=== PATIENT | female | born 1960 | race Caucasian/White ===

== ENCOUNTER 2019-05-15 01:08 | Day surgery (SDC) | payer OTHER, SELFPAY ==
[2019-05-05 15:17] VITALS: BMI 39.4
[2019-05-15] VITALS (8 sets, daily range): BP systolic 133–167; BP diastolic 46–74; PULSE 64–83; RESP 10–20; TEMP 36.5–36.7; O2SAT 95–100
[2019-05-15] MEDS: IBUPROFEN IV 800 MG/200 ML 800 MG/200 ML BAG 400 MG IVPB (12:30)
[2019-05-15] MEDS: LACTATED RINGERS 1,000 ML 30 ML IV CONT ×2 (12:30→15:57)
[2019-05-15 12:43] LABS: Glucose Point of Care 113 (65-105)
--- NOTE | 2019-05-15 12:59 | WPDANESEPPF ---
Anes - Initial Pre Proc Eval Procedure: Operation Date: 05/15/19 13:30 Proposed Procedures p Laparoscopic Cholecystectomy, Possible Open - Zack Stahl DO Date/Time: 05/15/19 12:59 Surgeon: Zack Stahl DO Pre Op Diagnosis: Porcelain Gallbladder Patient Data Age: 58 Gender: F Height: 5 ft 3 in Weight: 103.5 kg Last Vital Signs Temp 98.0 F 05/15/19 12:49 Pulse 71 05/15/19 12:49 Resp 18 05/15/19 12:49 BP 133/65 05/15/19 12:49 Pulse Ox 100 05/15/19 12:49 Allergies Allergy/AdvReac Type Severity Reaction Status Date / Time Sulfa (Sulfonamide Allergy Mild HALLUCINATI Verified 05/15/19 12:46 Antibiotics) ONS hydrocodone AdvReac Mild Vomiting Verified 05/15/19 12:46 Home Medications Medication Instructions Recorded Confirmed Type aspirin 325 mg tablet 325 mg PO DAILY 04/26/19 05/15/19 History atorvastatin 10 mg tablet 10 mg PO DAILY 04/26/19 05/05/19 History blood sugar diagnostic #10 each 04/26/19 History cholecalciferol (vitamin D3) 5,000 5,000 unit PO DAILY 04/26/19 05/05/19 History unit disintegrating tablet duloxetine 60 mg capsule,delayed 60 mg PO DAILY 04/26/19 05/15/19 History release gabapentin 300 mg capsule 300 mg PO TID 04/26/19 05/15/19 History glipizide 10 mg tablet 10 mg PO DAILY 04/26/19 05/05/19 History insulin glargine 100 unit/mL (3 30 unit SUB-Q BID 04/26/19 05/15/19 History mL) subcutaneous pen lisinopril 10 mg tablet 10 mg PO DAILY 04/26/19 05/05/19 History metformin 1,000 mg tablet 1,000 mg PO BID 04/26/19 05/05/19 History needle (disp) 30 gauge 30 gauge x #100 each 04/26/19 History 1/2 pantoprazole 40 mg tablet,delayed 40 mg PO QAM 04/26/19 05/05/19 History release paroxetine HCl 10 mg tablet 10 mg PO DAILY 04/26/19 05/15/19 History ferrous sulfate 325 mg PO DAILY 05/05/19 05/05/19 History ibuprofen 800 mg PO DAILY 05/05/19 05/05/19 History Laboratory Tests 05/15/19 12:38 POC Capillary Glucose 113 mg/dl H mg/dl (65-105) Patient hx anesthesia problems: post op nausea/vomiting Family hx anesthesia problems: none PMFSH Past Medical History Medical History (Updated 05/15/19 @ 12:59 by Frankie Chow MD) Adolescent depression Diabetes Encounter for blood transfusion GERD (gastroesophageal reflux disease) High cholesterol Hypertension Morbid obesity Surgical History Surgical History History of cataract surgery History of section History of colonoscopy History of knee surgery orthoscopic History of tubal ligation Social History Social History Smoking status: Never smoker Alcohol intake: never Anes - Eval Final PreProcedure Day of Procedure 05/15/19 12:59 Patient weight: morbidly obese Heart: regular rate and rhythm Lungs: clear to auscultation Airway: Mallampati scale class III Neurological: alert and oriented Last oral intake: >/= 8 hours ASA classification: IV Emergent: no Anesthetic plan: proceed Anesthesia type and monitoring: general ETT and standard monitoring Informed Consent: The patient's anesthetic plan and its attendant risks and benefits were discussed with the patient/family/POA. Questions were solicited and answers provided to the satisfaction of the patient/family/POA.
[2019-05-15] MEDS: SCOPOLAMINE 1.5 MG PATCH TRANSDERM (13:15)
--- NOTE | 2019-05-15 13:17 | WPDHPUPDATE1 ---
History and Physical Update Update Date/Time: 05/15/19 13:17 History and Physical has been reviewed, including an updated exam of the patient. There are NO changes in the patient's condition. Risks, benefits, and alternatives have been discussed and questions answered. Patient agrees to proceed with procedure.
[2019-05-15] MEDS: ceFAZolin 2 GM/D5W 50 ML 2 GM/50 ML BAG IVPB (13:37)
[2019-05-15] MEDS: BUPIVACAINE/EPINEPHRINE 0.5% 30 ML VIAL INFILTRATE (14:11)
--- NOTE | 2019-05-15 14:42 | PM.PROC ---
Procedure Note - Detailed Date of procedure: 05/15/19 Pre-op diagnosis: Porcelain Gallbladder Post-op diagnosis: same Procedure performed: Laparoscopic Cholecystectomy Description of procedure: Procedure as well as risks, benefits, and alternatives were discussed with patient. Written consent was obtained and placed in chart prior to procedure. The patient was brought back to surgical suite. Patient was placed in supine position on operating table. Time-out was done to confirm patient and procedure. Patient was then intubated by the anesthesia department. Abdomen was prepped and draped in sterile fashion using chlorhexidine prep. 0.5% bupivacaine with epinephrine was infiltrated at each site of incision. A 5 millimeter incision was made near the umbilicus, and a 5 millimeter Optiview trocar was advanced through the abdominal layers under direct visualization. Once inside the abdominal cavity, carbon dioxide was insufflated to create a pneumoperitoneum. The camera was inserted and the abdomen was inspected. No immediate abnormalities were identified. The patient was placed in reverse Trendelenburg position and rotated slightly to the left. An 11 millimeter incision was made in the subxiphoid region, and an 11 millimeter trocar was inserted under direct visualization. Two 5 millimeter incisions were made in the right upper quadrant, and two 5 millimeter trocars were inserted under direct visualization. The gallbladder was identified and grasped at the fundus and retracted superiorly. It was then grasped at the infundibulum retracted laterally. Careful dissection around the neck of the gallbladder was performed using blunt dissection with a [place] grasper and hook electrocautery. The cystic duct was identified, and a window was created behind it. The cystic artery was also identified and a window was created behind it. The critical view of safety was identified, visualizing the cystic duct running directly into the neck of the gallbladder, and the cystic artery running directly into the wall of the gallbladder. A 5 millimeter clip van driver was then used to place 2 clips proximally and 1 clip distally on both the cystic duct and cystic artery. They were then both transected using endoscopic scissors. Once safely away from the ralph hepatitis, the gallbladder was dissected free from the liver bed using hook electrocautery. Hemostasis was achieved along the way. The gallbladder was removed completely and then removed through the subxiphoid port. The liver bed was then inspected. Hemostasis appeared adequate, and our clips appeared secure. The area was gently irrigated with sterile saline. No other abnormalities were seen. The patient was flattened out in bed, and 1 final inspection was made around the abdominal cavity. The subxiphoid port was removed, and a Sigifredo Elisabet cone was used to approximate the fascia with an 0-Vicryl simple interrupted suture. The remaining ports were then removed under direct visualization, the camera was removed, and the pneumoperitoneum was released. The skin of the incisions was approximated using 4-0 Monocryl subcuticular sutures. Exofin glue was applied on top. The patient was then awakened from anesthesia, extubated, and transferred to recovery. Anesthesia: GETA and local (0.5% bupivicaine with epi) Surgeon: Zack Stahl DO Estimated blood loss (mL): 5 Drains: No Packing: No Pathology: yes Complications: No immediate complications Condition: stable (Patient tolerated procedure well, and is currently resting comfortably in recovery.) Disposition: same day Findings: This is a 58-year-old woman who presented with right upper quadrant pain for the past couple months. She had been experiencing pain after eating fried or greasy food, but also was having some pain with bending over. A CT of her abdomen and pelvis was obtained and this showed evidence of a porcelain gallbladder. Discussions were made with the
[2019-05-15] MEDS: ONDANSETRON INJ 4 MG/2 ML VIAL IV PUSH (15:21)
[2019-05-15 15:58] LABS: Glucose Point of Care 85 (65-105)
== END 2019-05-15 16:55 | disposition home or self-care (01) ==
PROVIDERS: PCP Physician Assistant; Visit Provider Surgery
PROC: 0FT44ZZ Resection of Gallbladder, Percutaneous Endoscopic Approach (ICD-10-PCS; CPT 47562; principal; 2019-05-15 13:30)
DX: K80.10 Calculus of gallbladder with chronic cholecystitis without obstruction (principal); E11.9 Type 2 diabetes mellitus without complications; K21.9 Gastro-esophageal reflux disease without esophagitis; E78.00 Pure hypercholesterolemia, unspecified; I10 Essential (primary) hypertension; E66.01 Morbid (severe) obesity due to excess calories; Z68.41 Body mass index [BMI] 40.0-44.9, adult; Z79.4 Long term (current) use of insulin; Z79.84 Long term (current) use of oral hypoglycemic drugs; Z79.82 Long term (current) use of aspirin
CPT/HCPCS: 47562; 88304; A9270; J0330; J0690; J1100; J1741; J2250; J2405; J2704; J2710; J3010; J7030; J7120

== ENCOUNTER 2019-09-20 10:56 | Outpatient (RCR) | payer OTHER, SELFPAY ==
--- NOTE | 2019-09-20 13:16 | PTOPEVAL ---
Thank you for referring Sher Billings to [facility] [place]. Please review, sign, date and return this plan of care IVETTE. I agree with and certify that the following plan of care is medically necessary. Referring Physician Date Admitting Provider: Attending Provider: PHYSICIAN NOT ON STAFF Referring Provider: *PT Outpatient Evaluation Start: 09/20/19 11:11 Freq: Status: Active Protocol: Document 09/20/19 11:13 [facility] (Rec: 09/20/19 11:57 [facility] [id number]) Therapy Assessment Status Assessment Status Assessment Status Evaluation Outpatient Past Medical History Neurological History Hx Neurological Disorders No Significant History Cardiovascular History Hx Hypercholesterolemia Yes Hx Hypertension Yes Respiratory History Hx Respiratory Disorders No Significant History Gastrointestinal History Hx Gall Bladder Disease Yes Hx Other Gastrointestinal Disorders Yes: HIATAL HERNIA Genitourinary History Hx Genitourinary Disorders No Significant History Musculoskeletal History Hx Arthritis Yes Hx Orthopedic Surgery Yes: L KNEE ARTHROSCOPY Hematological History Hx Anemia Yes Hx Blood Transfusions Yes Endocrine History Hx Diabetes Yes HEENT History Hx Cataracts Yes: SURGERY TO REMOVE Hx Tonsillectomy Yes Integumentary History Hx Skin Disorders No Significant History Reproductive History Hx Section Yes Hx Post Menopausal Yes Hx Tubal Ligation Yes Psychosocial History Hx Anxiety Yes Hx Depression Yes Pain History Has Past Pain Affected Your Daily Life Yes: ARTHRITIS Anesthesia History Hx Other Anesthesia Reactions Yes: HEART RATE DROPS Evaluation Information Problem Diagnosis low back pain, bilateral hip pain Onset 09/14/19 Additional Evaluation Detail oswestry = 38% Subjective Information patient reports she has been Query Text:As Reported By Patient/ having pain in the L hip and Family low back for about 3 months. she reports no injury. she report sno change in activity. she reports the pain feels increased with touching a spot on the outside of her leg and with walking. she reports she does takie ibuprofen for her pain which helps. she reports she did have x-rays taken. she reports no injection. sh
--- NOTE | 2019-09-25 10:15 | PCPTNOTE ---
09/25/19-pt cancelled appointment as she is worried about her insurance coverage.
== END 2019-11-07 23:59 | disposition home or self-care (01) ==
LOC: CHSPT 10:56
DX: M54.5 Low back pain (principal); G89.29 Other chronic pain; M70.61 Trochanteric bursitis, right hip; M70.62 Trochanteric bursitis, left hip; M16.11 Unilateral primary osteoarthritis, right hip; M16.12 Unilateral primary osteoarthritis, left hip
CPT/HCPCS: 97014; 97110; 97140; 97161; G0283

== ENCOUNTER 2020-06-22 19:06 | Emergency (ER) | payer OTHER, SELFPAY ==
--- NOTE | ~2020-06-22 | XR_ITS ---
XR chest 1V portable 06/22/2020 19:29 Indication: Status post fall. Dizziness. Procedure: AP portable chest Comparison: No prior studies for comparison. Findings: Heart size normal. Large hiatal hernia. Right basilar atelectasis. No focal pneumonia, colby a, pleural effusion or pneumothorax. No acute osseous abnormality. Impression: 1: No acute cardiopulmonary disease. 2: Large hiatal hernia. Reviewed, dictated and finalized at location A. RAM ARRANGER Impression: 1: No acute cardiopulmonary disease. 2: Large hiatal hernia.
--- NOTE | ~2020-06-22 | CT_ITS ---
EXAMINATION: CT BRAIN W/O DATE: 06/22/2020 19:35 INDICATION: Dizziness TECHNIQUE: Computed tomography (CT) of the head was performed without intravenous contrast. The dose- length product was 605.33 mGy-cm. Automated exposure control and iterative reconstruction technique w ere employed. COMPARISON: No prior studies for comparison. FINDINGS: Normal brain parenchymal volume for age. Normal melendez-white differentiation. No acute intrac ranial hemorrhage, infarction, mass or mass effect. No ventriculomegaly or midline shift. Midline sagittal images demonstrate a normal corpus callosum, c raniovertebral junction and sella turcica. Basilar cisterns are patent. There is mucosal thickening of the left ethmoid sinuses. No depressed skull fractures. IMPRESSION: 1. No acute intracranial abnormality. Reviewed, dictated and finalized at location A. E MOUNTER
[2020-06-22 19:05] VITALS: BP 149/75; PULSE 102; RESP 21; TEMP 37.3; O2SAT 98
--- NOTE | 2020-06-22 19:13 | PC.NURSE ---
daughter of the pt is called Socorro [phone]
--- NOTE | 2020-06-22 19:16 | ECG_ITS ---
Measurements Intervals Hunter Rate: 101 P: 41 WV: 132 QRS: -28 QRSD: 91 T: 71 QT: 356 QTc: 463 Interpretive Statements MULTIFOCAL ATRIAL TACHYCARDIA ATRIAL PREMATURE COMPLEXES DELAYED PRECORDIAL R/S TRANSITION NONSPECIFIC ST & T-WAVE ABNORMALITY- HIGH LATERAL LEADS ABNORMAL ECG Electronically Signed On 06-23-2020 8:19:06 CDT by Rayshawn Contreras D.O.
[2020-06-22 19:28] VITALS: BP 149/75; PULSE 120; RESP 20; O2SAT 97
[2020-06-22] MEDS: SODIUM CHLORIDE 0.9% IV 1,000 ML 999 ML IV CONT (19:52)
[2020-06-22] MEDS: ONDANSETRON INJ 4 MG/2 ML VIAL IV PUSH (19:52)
[2020-06-22 19:59] LABS: Basophils Absolute Auto 0.1 K/mm3 (0.0-0.1); Basophils Percent Auto 0.7 % (0.2-1.2); Eosinophils Absolute Auto 0.2 K/mm3 (0-0.3); Eosinophils Percent Auto 2.6 % (0-4.4); Hematocrit 42.3 % (37.0-47.0); Hemoglobin 13.4 g/dL (12.0-15.0); Immature Granulocyte Absolute 0.02 K/mm3 (0.00-0.031); Immature Granulocyte Percent A 0.2 % (0-0.5); Lymphocytes Absolute Auto 1.82 K/mm3 (0.9-3.2); Lymphocytes Percent Auto 21.5 % (18.3-44.2); Mean Corpuscular HGB Conc 31.7 g/dl (32-36); Mean Corpuscular Hemoglobin 27.8 pg (26-34); Mean Corpuscular Volume 87.8 fl (80-100); Monocytes Absolute Auto 0.9 K/mm3 (0.1-0.6); Monocytes Percent Auto 10.4 % (2.6-8.5); Neutrophils Absolute Auto 5.5 K/mm3 (1.3-6.7); Neutrophils Percent Auto 64.6 % (45.5-73.1); Platelet Count Result 344 k/mm3 (150-375); Red Blood Count 4.82 M/mm3 (4.2-5.4); Red Cell Distribution Width 13.3 % (11.5-14.5); White Blood Count 8.5 K/mm3 (4.5-10.0)
[2020-06-22 20:01] LABS: Glucose Point of Care 96 (65-105)
[2020-06-22 20:09] LABS: INR 0.9; Prothrombin Time 12.4 Seconds (11.1-14.7)
[2020-06-22 20:10] LABS: Add Urine Microscopic? YES; Amorphous Sediment Urine Few; Appearance Urine Clear (Clear); Bacteria Urine Trace /hpf; Bilirubin Urine Negative (Negative); Blood Urine Negative (Negative); Color Urine Yellow (Yellow); Glucose Urine UA Negative (Negative); Ketones Urine Negative (Negative); Leukocyte Esterase Ur Negative LEU/UL (Negative); Mucus Urine Rare /lpf; Nitrate Urine Negative (Negative); Partial Thromboplastin Time 30.9 SECONDS (22.3-36.8); Protein Urine Negative (Negative); RBC Urine 0-2 /hpf (0-2); Squamous Epithelial Cell Urine Few /hpf (Few); Urobilinogen Urine Negative mg/dL (<2.0); WBC Urine 0-3 /hpf
[2020-06-22 20:22] LABS: Alanine Aminotransferase 23 U/L (4-35); Albumin Level 4.1 g/dL (3.5-5.1); Alkaline Phosphatase 118 U/L (38-126); Anion Gap 6 mmol/L (8-16); Aspartate Amino Transferase 29 U/L (14-36); Bilirubin,Total 0.5 mg/dL (0.2-1.3); Blood Urea Nitrogen 11 mg/dL (7-17); Calcium 9.1 mg/dL (8.4-10.2); Carbon Dioxide 32 mmol/L (22-30); Chloride 103 mmol/L (98-107); Estimated CRCL calculation 87 ml/min; Estimated Glomerular Filt Rate > 60; Glucose 109 mg/dL (65-105); Potassium 4.7 mmol/L (3.4-5.0); Sodium 141 mmol/L (137-145)
[2020-06-22 20:23] LABS: Lactic Acid Reflex 3.5 mmol/L (0.7-2.1)
[2020-06-22 20:33] LABS: Troponin I < 0.012 ng/mL (0.000-0.034)
--- NOTE | 2020-06-22 21:17 | ED.NEUROSD ---
HPI - Neuro Symptoms/Deficit General Chief Complaint: Suspected CVA Stated Complaint: fall yesterday/ aphasia and weakness Time Seen by Provider: 06/22/20 19:08 History of Present Illness HPI Narrative: Patient is a 59-year-old female who presents the emergency department with chief complaint of dizziness and nausea. The patient reports that she was at [facility] yesterday and slipped and fell and struck her head. The patient states she had no loss of consciousness was doing okay afterwards and this morning approximately 2 AM she noticed that she started feeling lightheaded started feeling dizzy and was nauseated. The patient states that she also had some difficulty writing and moving her hand when her symptoms were at its worst. Upon arrival to the emergency department the patient states that she is feeling much better now particular if she is sitting down's did report initially that the symptoms are worsened whenever she stood up. Related Data Home Medications Medication Instructions Recorded Confirmed aspirin 325 mg tablet 325 mg PO DAILY 04/26/19 06/01/19 atorvastatin 10 mg tablet 10 mg PO DAILY 04/26/19 06/01/19 blood sugar diagnostic #10 each 04/26/19 06/01/19 cholecalciferol (vitamin D3) 125 5,000 unit PO DAILY 04/26/19 06/01/19 mcg (5,000 unit) disintegrating tablet duloxetine 60 mg capsule,delayed 60 mg PO DAILY 04/26/19 06/01/19 release gabapentin 300 mg capsule 300 mg PO TID 04/26/19 06/01/19 glipizide 10 mg tablet 10 mg PO DAILY 04/26/19 06/01/19 insulin glargine 100 unit/mL (3 30 unit SUB-Q BID 04/26/19 06/01/19 mL) subcutaneous pen lisinopril 10 mg tablet 10 mg PO DAILY 04/26/19 06/01/19 metformin 1,000 mg tablet 1,000 mg PO BID 04/26/19 06/01/19 needle (disp) 30 gauge 30 gauge x #100 each 04/26/19 06/01/19 1/2 pantoprazole 40 mg tablet,delayed 40 mg PO QAM 04/26/19 06/01/19 release paroxetine HCl 10 mg tablet 10 mg PO DAILY 04/26/19 06/01/19 ferrous sulfate 325 mg PO DAILY 05/05/19 06/01/19 ibuprofen 800 mg PO DAILY 05/05/19 06/01/19 Allergies Allergy/AdvReac Type Severity Reaction Status Date / Time Sulfa (Sulfonamide Allergy Mild HALLUCINATI Verified 06/22/20 19:10 Antibiotics) ONS hydrocodone AdvReac Mild Vomiting Verified 06/22/20 19:11 Review of Systems Review of Systems: Narrative: A 10 system review of systems was completed on the patient and is negative except for what is stated in the HPI. Nursing and ancillary documentation was reviewed. [facility] Past Medical History Medical History (Updated 06/22/20 @ 22:31 by Que Mederos MD) Adolescent depression Diabetes Encounter for blood transfusion GERD (gastroesophageal reflux disease) High cholesterol Hypertension Morbid obesity Surgical History Surgical History History of cataract surgery History of section History of colonoscopy History of knee surgery orthoscopic History of tubal ligation Hx laparoscopic cholecystectomy Family History Family History Father Hodgkin lymphoma Mother Diabetes mellitus Hypertension Unknown Diabetes mellitus Hypertension Family history of thyroid problem Social History Social History Smoking status: Never smoker Alcohol intake: never Exam Narrative: Exam Narrative: GENERAL: Well-appearing, well-nourished, and in no acute distress. HEAD: Normocephalic, atraumatic. EYES: PERRLA and EOMI. ENT: Nares clear, no rhinorrhea or epistaxis. Mucous membranes moist. NECK: Supple. CHEST: Clear to auscultation. No respiratory distress. HEART: Regular rate and rhythm. No murmur heard. Normal peripheral pulses. ABDOMEN: Soft, nontender, nondistended, normal active bowel sounds. EXTREMITIES: Normal range of motion. No edema. SKIN: Warm, dry, no rash. NEURO: No focal deficits
[2020-06-22 22:57] LABS: Reflex Lactic Acid Yes or No Add Lactic
[2020-06-22 23:10] VITALS: BP 135/106; PULSE 85; RESP 16; TEMP 36.8; O2SAT 100
== END 2020-06-22 23:13 | disposition home or self-care (01) ==
PROVIDERS: Emergency Provider Emergency Medicine
DX: S06.0X0A Concussion without loss of consciousness, initial encounter (principal); E11.9 Type 2 diabetes mellitus without complications; K21.9 Gastro-esophageal reflux disease without esophagitis; E78.00 Pure hypercholesterolemia, unspecified; I10 Essential (primary) hypertension; E66.01 Morbid (severe) obesity due to excess calories; Z68.41 Body mass index [BMI] 40.0-44.9, adult; Z79.4 Long term (current) use of insulin; Z79.82 Long term (current) use of aspirin; Z98.49 Cataract extraction status, unspecified eye; I47.1 Supraventricular tachycardia; I49.1 Atrial premature depolarization; R94.31 Abnormal electrocardiogram [ECG] [EKG]; W01.0XXA Fall on same level from slipping, tripping and stumbling without subsequent striking against object, initial encounter
CPT/HCPCS: 36415; 70450; 71045; 80053; 81001; 82948; 83605; 84484; 85025; 85610; 85730; 93005; 96361; 96374; 99284; J2405; J7030

== ENCOUNTER 2020-09-02 15:18 | Outpatient (CLI) | payer OTHER, SELFPAY ==
--- NOTE | ~2020-09-02 | XR_ITS ---
XR lumbar spine 2-3V 09/02/2020 16:32 Indication: Low back pain Procedure: 3 views lumbar spine Comparison: No prior studies for comparison. Findings: Vertebral body heights are maintained. No fracture or traumatic malalignment. There is disc narrowing and endplate hypertrophy at L4-5 and L5-S1. No evidence for spondylolisthesis. Pedicles in tact. There are cholecystectomy clips. There is atherosclerosis of the abdominal aorta. There are immanuel gical clips in the pelvis, likely from tubal ligation. Impression: 1: Moderate lumbar spondylosis. Reviewed, dictated and finalized at location A. Impression: 1: Moderate lumbar spondylosis.
--- NOTE | ~2020-09-02 | XR_ITS ---
XR sacroiliac joints min 3V 09/02/2020 16:32 Indication: Sacroiliitis Procedure: 3 view sacroiliac joints Comparison: No prior studies for comparison. Findings: Sacroiliac joints are symmetric without significant degenerative change, erosion or ankylos is. There is moderate degenerative change at the lumbosacral junction. Impression: 1: No significant abnormality of the sacroiliac joints. Reviewed, dictated and finalized at location A. Impression: 1: No significant abnormality of the sacroiliac joints.
== END 2020-09-02 15:19 | disposition home or self-care (01) ==
PROVIDERS: PCP Physician Assistant; Visit Provider Nurse Practitioner Adult Health
DX: M54.16 Radiculopathy, lumbar region (principal)
CPT/HCPCS: 72100; 72202

== ENCOUNTER 2021-04-09 15:41 | Outpatient (CLI) | payer OTHER, SELFPAY ==
--- NOTE | ~2021-04-09 | US_ITS ---
EXAMINATION: US venous doppler [facility] DATE: 04/09/2021 16:42 INDICATION: Left lower limb pain and swelling TECHNIQUE: Grayscale ultrasound images without and with compression and Doppler ultrasound images of the left lower extremity veins were obtained. COMPARISON: None. FINDINGS: The visualized portions of left common femoral vein, profunda (deep) femoral vein, femoral vein, popl iteal vein, peroneal veins, posterior tibial veins, gastrocnemius vein and greater saphenous vein out flow are patent. IMPRESSION: 1. No deep venous thrombosis in the left lower limb. Reviewed, dictated and finalized at location A. RETTE EXAMINER
== END 2021-04-09 15:42 | disposition home or self-care (01) ==
PROVIDERS: PCP Physician Assistant; Visit Provider Physician Assistant
DX: M79.605 Pain in left leg (principal)
CPT/HCPCS: 93971

== ENCOUNTER 2021-09-17 19:58 | Outpatient (CLI) | payer OTHER, SELFPAY ==
--- NOTE | 2021-09-24 17:43 | WPDSLEEPSTUD ---
Sleep Study Date of Study: 09/17/21 Ordering Provider: Rayshawn Contreras DO Interpreting Physician: Beulah Ling MD Sleep Study Type: Split Polysomnogram Height: 1.6 m Weight: 95.254 kg Body Mass Index: 37.2 Neck Circumference (inches): 17 Willow: 8 Reason for Sleep Study Difficulty falling asleep and staying asleep Sleep History Sher Billings is a 61 year old female with difficulties falling asleep at night and problems waking up throughout the night. There is a family history of sleep problems with 2 sisters having sleep diagnoses. She rarely awakens from sleep feeling short of breath. She occasionally awakens at night with heartburn, belching or coughing. She occasionally snores, rarely loud enough that others complain about it. She occasionally has trouble sleeping with a cold. She does not wake up gasping for breath at night or have breathing problems at night observed by others. She occasionally sweats excessively at night. She rarely notices her heart pounding or beating irregularly at night. She occasionally falls asleep during the day, rarely falls asleep involuntarily never falls asleep while driving. She rarely has loss of muscle tone with strong emotion. She rarely has daytime difficulties due to excessive sleepiness and rarely has the feeling of paralysis on waking or falling asleep. She rarely has vivid dreamlike scenes upon awakening or falling asleep. She does not feel afraid to go to sleep. She does not have nightmares or remember her dreams. She occasionally has racing thoughts. She frequently feels sad, depressed and anxious. She occasionally has muscular tension. She does not notice parts of her body jerking. She rarely kicks at night. She occasionally has crawling and aching feelings in her legs. She occasionally has leg pain at night. She occasionally has morning jaw pain. She occasionally grinds her teeth during sleep, occasionally is bothered by pain during the day and awakened by pain at night. She occasionally wakes up feeling stiff in the morning, occasionally wakes with sore achy muscles and occasionally wakes with pain in the neck and spine. She has memory problems, concentration difficulties, bowel disturbances and she takes sedatives. Normal bedtime is 10:30 p.m., taking about an hour to fall asleep, typically waking 1-2 times during the night to go to the bathroom. She wakes the morning at 10:00 a.m.. She estimates getting between 6-8 hours of sleep during 10-1/2 hours in bed. Her weekend schedule is similar, goes to bed at 10:30 a.m. p.m. and wakes at 10:00 a.m.. She takes naps in the afternoon. A short nap lasting 10 or 15 minutes may be refreshing. She feels better in the afternoon compared to other times of day. She reports a 10 lb weight gain in the last year. Habits: Never smoked tobacco. Caffeine, 2 glasses of tea a day. No alcohol or recreational drugs. [facility] Past Medical History Medical History Adolescent depression Diabetes Encounter for blood transfusion GERD (gastroesophageal reflux disease) High cholesterol Hypertension Morbid obesity Surgical History Surgical History History of cataract surgery History of section History of colonoscopy History of knee surgery orthoscopic History of tubal ligation Hx laparoscopic cholecystectomy Family History Family History Father Hodgkin lymphoma Mother Diabetes mellitus Hypertension Unknown Diabetes mellitus Hypertension Family history of thyroid problem Social History Social History Smoking status: Never smoker Alcohol intake: never Medications Home Medications Medication Instructions Recorded Confirmed Type aspirin 325 mg tablet 325 mg PO DAILY 04/26/19 02/10/21 Histor
[2021-09-25 17:42] VITALS: BMI 37.2
== END 2021-09-18 06:13 | disposition home or self-care (01) ==
LOC: CHSCSM 19:59
PROVIDERS: PCP Physician Assistant; Visit Provider Internal Medicine Cardiovascular Disease
DX: G47.33 Obstructive sleep apnea (adult) (pediatric) (principal)
CPT/HCPCS: 95811

== ENCOUNTER 2021-12-24 07:36 | Outpatient (CLI) | payer OTHER, SELFPAY ==
[2021-12-24 07:57] LABS: Basophils Absolute Auto 0.06 K/mm3 (0.00-0.10); Basophils Percent Auto 0.7 % (0.0-1.0); Eosinophils Absolute Auto 0.25 K/mm3 (0.02-0.50); Eosinophils Percent Auto 2.8 % (1.0-6.0); Hematocrit 39.5 % (35.0-49.0); Hemoglobin 12.3 g/dL (12.0-15.0); Immature Granulocyte Absolute 0.04 K/mm3 (0.00-0.00); Immature Granulocyte Percent A 0.4 % (0.0-0.0); Lymphocytes Absolute Auto 2.36 K/mm3 (1.10-4.50); Lymphocytes Percent Auto 26.5 % (18.0-42.0); Mean Corpuscular HGB Conc 31.1 g/dL (32.0-36.0); Mean Corpuscular Volume 86.6 fL (78.0-102.0); Mean Platelet Volume 9.6 fl (9.2-11.8); Monocytes Absolute Auto 0.88 K/mm3 (0.10-0.90); Monocytes Percent Auto 9.9 % (2.0-11.0); Neutrophils Absolute Auto 5.3 K/mm3 (1.7-7.2); Neutrophils Percent Auto 59.7 % (50.0-70.0); Platelet Count Result 333 K/mm3 (150-420); Red Blood Count 4.56 M/mm3 (4.20-5.40); Red Cell Distribution Width 13.1 % (11.6-14.4); White Blood Count 8.9 K/mm3 (4.8-10.8)
[2021-12-24 08:06] LABS: Hemoglobin A1C 8.2 % (<5.7)
[2021-12-24 08:52] LABS: Alanine Aminotransferase 36 U/L (14-59); Albumin Level 3.6 g/dL (3.4-5.0); Alkaline Phosphatase 144 U/L (46-116); Anion Gap 6 mmol/L (8-16); Aspartate Amino Transferase 23 U/L (15-37); Bilirubin,Total 0.5 mg/dL (0.00-1.00); Blood Urea Nitrogen 9 mg/dL (7-18); Calcium 9.3 mg/dL (8.5-10.1); Carbon Dioxide 31 mmol/L (21-32); Chloride 103 mmol/L (98-108); Cholesterol 140 mg/dL (0-200); Estimated Glomerular Filt Rate > 60; Glucose 163 mg/dL (70-99); HDL Direct 40 mg/dL (40-60); LDL Cholesterol Calculated 71 mg/dL (<130); Osmolality Calculated 292 mOsm/kg (285-295); Potassium 5.1 mmol/L (3.5-5.1); Sodium 140 mmol/L (136-145); Thyroid Stimulating Hormone 4.86 uIU/mL (0.36-3.74); Total Protein 6.5 g/dL (6.4-8.2); Triglycerides 145 mg/dL (0-150)
== END 2021-12-24 07:37 | disposition home or self-care (01) ==
PROVIDERS: PCP Physician Assistant; Visit Provider Physician Assistant
DX: E78.5 Hyperlipidemia, unspecified (principal); I10 Essential (primary) hypertension; F33.9 Major depressive disorder, recurrent, unspecified; E11.69 Type 2 diabetes mellitus with other specified complication
CPT/HCPCS: 36415; 80053; 80061; 83036; 84443; 85025

== ENCOUNTER 2022-03-26 08:55 | Outpatient (CLI) | payer OTHER, SELFPAY ==
[2022-03-26 09:09] LABS: Basophils Absolute Auto 0.05 K/mm3 (0.00-0.10); Basophils Percent Auto 0.5 % (0.0-1.0); Eosinophils Absolute Auto 0.24 K/mm3 (0.02-0.50); Eosinophils Percent Auto 2.4 % (1.0-6.0); Hematocrit 37.9 % (35.0-49.0); Hemoglobin 12.6 g/dL (12.0-15.0); Immature Granulocyte Absolute 0.03 K/mm3 (0.00-0.00); Immature Granulocyte Percent A 0.3 % (0.0-0.0); Lymphocytes Percent Auto 24.3 % (18.0-42.0); Mean Corpuscular HGB Conc 33.2 g/dL (32.0-36.0); Mean Corpuscular Hemoglobin 28.4 pg (27.0-31.0); Mean Corpuscular Volume 85.6 fL (78.0-102.0); Mean Platelet Volume 9.6 fl (9.2-11.8); Monocytes Absolute Auto 0.84 K/mm3 (0.10-0.90); Monocytes Percent Auto 8.5 % (2.0-11.0); Neutrophils Absolute Auto 6.3 K/mm3 (1.7-7.2); Platelet Count Result 316 K/mm3 (150-420); Red Blood Count 4.43 M/mm3 (4.20-5.40); Red Cell Distribution Width 12.9 % (11.6-14.4); White Blood Count 9.9 K/mm3 (4.8-10.8)
[2022-03-26 09:18] LABS: Hemoglobin A1C 7.5 % (<5.7)
[2022-03-26 10:15] LABS: Alanine Aminotransferase 35 U/L (14-59); Albumin Level 3.7 g/dL (3.4-5.0); Alkaline Phosphatase 136 U/L (46-116); Anion Gap 6 mmol/L (8-16); Aspartate Amino Transferase 23 U/L (15-37); Bilirubin,Total 0.4 mg/dL (0.00-1.00); Blood Urea Nitrogen 19 mg/dL (7-18); Calcium 9.3 mg/dL (8.5-10.1); Carbon Dioxide 32 mmol/L (21-32); Chloride 101 mmol/L (98-108); Cholesterol 163 mg/dL (0-200); Estimated Glomerular Filt Rate 60; Glucose 125 mg/dL (70-99); HDL Direct 44 mg/dL (40-60); LDL Cholesterol Calculated 87 mg/dL (<130); Osmolality Calculated 291 mOsm/kg (285-295); Potassium 4.7 mmol/L (3.5-5.1); Sodium 139 mmol/L (136-145); Thyroid Stimulating Hormone 2.12 uIU/mL (0.36-3.74); Total Protein 6.8 g/dL (6.4-8.2); Triglycerides 161 mg/dL (0-150)
== END 2022-03-26 08:56 | disposition home or self-care (01) ==
PROVIDERS: PCP Physician Assistant; Visit Provider Physician Assistant
DX: E11.69 Type 2 diabetes mellitus with other specified complication (principal); I10 Essential (primary) hypertension
CPT/HCPCS: 36415; 80053; 80061; 83036; 84443; 85025

== ENCOUNTER 2022-08-08 08:24 | Outpatient (CLI) | payer OTHER, SELFPAY ==
[2022-08-08 08:43] LABS: Basophils Absolute Auto 0.05 K/mm3 (0.00-0.10); Basophils Percent Auto 0.6 % (0.0-1.0); Eosinophils Absolute Auto 0.25 K/mm3 (0.02-0.50); Eosinophils Percent Auto 3.1 % (1.0-6.0); Hematocrit 38.9 % (35.0-49.0); Hemoglobin 12.7 g/dL (12.0-15.0); Immature Granulocyte Absolute 0.01 K/mm3 (0.00-0.00); Immature Granulocyte Percent A 0.1 % (0.0-0.0); Lymphocytes Absolute Auto 1.84 K/mm3 (1.10-4.50); Mean Corpuscular HGB Conc 32.6 g/dL (32.0-36.0); Mean Corpuscular Hemoglobin 28.2 pg (27.0-31.0); Mean Corpuscular Volume 86.3 fL (78.0-102.0); Mean Platelet Volume 9.6 fl (9.2-11.8); Monocytes Absolute Auto 0.79 K/mm3 (0.10-0.90); Monocytes Percent Auto 9.9 % (2.0-11.0); Neutrophils Absolute Auto 5.1 K/mm3 (1.7-7.2); Neutrophils Percent Auto 63.3 % (50.0-70.0); Platelet Count Result 321 K/mm3 (150-420); Red Blood Count 4.51 M/mm3 (4.20-5.40); Red Cell Distribution Width 13.2 % (11.6-14.4)
[2022-08-08 09:28] LABS: Alanine Aminotransferase 33 U/L (14-59); Albumin Level 3.7 g/dL (3.4-5.0); Alkaline Phosphatase 138 U/L (46-116); Anion Gap 9 mmol/L (8-16); Aspartate Amino Transferase 24 U/L (15-37); Bilirubin,Total 0.4 mg/dL (0.00-1.00); Blood Urea Nitrogen 11 mg/dL (7-18); Calcium 9.1 mg/dL (8.5-10.1); Carbon Dioxide 31 mmol/L (21-32); Chloride 102 mmol/L (98-108); Cholesterol 153 mg/dL (0-200); Estimated Glomerular Filt Rate > 60; Glucose 155 mg/dL (70-99); HDL Direct 47 mg/dL (40-60); Hemoglobin A1C 8.1 % (<5.7); LDL Cholesterol Calculated 84 mg/dL (<130); Osmolality Calculated 296 mOsm/kg (285-295); Potassium 4.3 mmol/L (3.5-5.1); Sodium 142 mmol/L (136-145); Thyroid Stimulating Hormone 2.87 uIU/mL (0.36-3.74); Total Protein 6.7 g/dL (6.4-8.2); Triglycerides 108 mg/dL (0-150)
== END 2022-08-08 08:25 | disposition home or self-care (01) ==
LOC: CHSLAB 08:25
PROVIDERS: PCP Physician Assistant; Visit Provider Physician Assistant
DX: E11.69 Type 2 diabetes mellitus with other specified complication (principal); I10 Essential (primary) hypertension
CPT/HCPCS: 36415; 80053; 80061; 83036; 84443; 85025

== ENCOUNTER 2022-11-20 09:01 | Outpatient (CLI) | payer OTHER, SELFPAY ==
[2022-11-20 09:20] LABS: Basophils Absolute Auto 0.05 K/mm3 (0.00-0.10); Basophils Percent Auto 0.6 % (0.0-1.0); Eosinophils Percent Auto 2.3 % (1.0-6.0); Hematocrit 39.2 % (35.0-49.0); Hemoglobin 12.6 g/dL (12.0-15.0); Immature Granulocyte Absolute 0.04 K/mm3 (0.00-0.00); Immature Granulocyte Percent A 0.5 % (0.0-0.0); Lymphocytes Absolute Auto 1.75 K/mm3 (1.10-4.50); Lymphocytes Percent Auto 20.3 % (18.0-42.0); Mean Corpuscular HGB Conc 32.1 g/dL (32.0-36.0); Mean Corpuscular Hemoglobin 27.8 pg (27.0-31.0); Mean Corpuscular Volume 86.5 fL (78.0-102.0); Mean Platelet Volume 9.6 fl (9.2-11.8); Monocytes Absolute Auto 0.78 K/mm3 (0.10-0.90); Neutrophils Absolute Auto 5.8 K/mm3 (1.7-7.2); Neutrophils Percent Auto 67.3 % (50.0-70.0); Platelet Count Result 315 K/mm3 (150-420); Red Blood Count 4.53 M/mm3 (4.20-5.40); Red Cell Distribution Width 13.2 % (11.6-14.4); White Blood Count 8.6 K/mm3 (4.8-10.8)
[2022-11-20 09:51] LABS: Hemoglobin A1C 6.9 % (<5.7)
[2022-11-20 10:04] LABS: Alanine Aminotransferase 24 U/L (14-59); Albumin Level 3.7 g/dL (3.4-5.0); Alkaline Phosphatase 139 U/L (46-116); Anion Gap 9 mmol/L (8-16); Aspartate Amino Transferase 22 U/L (15-37); Bilirubin,Total 0.4 mg/dL (0.00-1.00); Blood Urea Nitrogen 11 mg/dL (7-18); Calcium 9.2 mg/dL (8.5-10.1); Carbon Dioxide 30 mmol/L (21-32); Chloride 102 mmol/L (98-108); Cholesterol 116 mg/dL (0-200); Estimated Glomerular Filt Rate > 60; Glucose 139 mg/dL (70-99); HDL Direct 41 mg/dL (40-60); LDL Cholesterol Calculated 57 mg/dL (<130); Osmolality Calculated 293 mOsm/kg (285-295); Potassium 4.6 mmol/L (3.5-5.1); Sodium 141 mmol/L (136-145); Thyroid Stimulating Hormone 2.35 uIU/mL (0.36-3.74); Total Protein 6.5 g/dL (6.4-8.2); Triglycerides 91 mg/dL (0-150)
== END 2022-11-20 09:02 | disposition home or self-care (01) ==
LOC: CHSLAB 09:06
PROVIDERS: PCP Physician Assistant; Visit Provider Physician Assistant
DX: F33.9 Major depressive disorder, recurrent, unspecified (principal); E11.69 Type 2 diabetes mellitus with other specified complication; E78.5 Hyperlipidemia, unspecified; I10 Essential (primary) hypertension
CPT/HCPCS: 36415; 80053; 80061; 83036; 84443; 85025

== ENCOUNTER 2023-01-26 08:22 | Outpatient (CLI) | payer OTHER, SELFPAY ==
--- NOTE | ~2023-01-26 | MM_ITS ---
EXAMINATION: MM screening eduardo BI w cameron HISTORY: Screening TECHNIQUE: Craniocaudal and mediolateral oblique 3-D tomosynthesis images were obtained and synthetic 2-D images were generated. CAD analysis was submitted and interpreted. COMPARISON: No prior mammogram is available for comparison at this institution. BREAST PARENCHYMAL COMPOSITION: The breasts are almost entirely fatty. FINDINGS: There is no evidence of suspicious mass, calcification, or architectural distortion to sugg est malignancy in either breast. There has been no suspicious interval change. IMPRESSION: 1. No mammographic evidence of malignancy. 2. Recommend routine screening mammography in one year. BI-RADS Category 1: Negative Reviewed, dictated and finalized at location A.
== END 2023-01-26 08:23 | disposition home or self-care (01) ==
LOC: CHSIMG 08:24
PROVIDERS: PCP Physician Assistant; Visit Provider Physician Assistant
DX: Z12.31 Encounter for screening mammogram for malignant neoplasm of breast (principal)
CPT/HCPCS: 77063; 77067

== ENCOUNTER 2023-05-21 09:31 | Outpatient (CLI) | payer OTHER, SELFPAY ==
--- NOTE | ~2023-05-21 | XR_ITS ---
AP view of the pelvis and AP and lateral views of the right hip Clinical history: Pain Findings: No acute fracture or dislocation is seen. Osseous alignment is anatomic. Bilateral hip and SI joint spaces are preserved. Soft tissues are unremarkable. Impression: No significant abnormality is seen. Reviewed, dictated and finalized at [facility]. 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
[2023-05-21 09:55] LABS: Basophils Absolute Auto 0.05 K/mm3 (0.00-0.10); Basophils Percent Auto 0.5 % (0.0-1.0); Eosinophils Percent Auto 7.1 % (1.0-6.0); Hematocrit 40.4 % (35.0-49.0); Immature Granulocyte Absolute 0.04 K/mm3 (0.00-0.00); Immature Granulocyte Percent A 0.4 % (0.0-0.0); Lymphocytes Absolute Auto 2.09 K/mm3 (1.10-4.50); Lymphocytes Percent Auto 21.2 % (18.0-42.0); Mean Corpuscular HGB Conc 32.2 g/dL (32.0-36.0); Mean Corpuscular Hemoglobin 27.5 pg (27.0-31.0); Mean Corpuscular Volume 85.6 fL (78.0-102.0); Mean Platelet Volume 9.3 fl (9.2-11.8); Monocytes Absolute Auto 1.05 K/mm3 (0.10-0.90); Monocytes Percent Auto 10.7 % (2.0-11.0); Neutrophils Absolute Auto 5.9 K/mm3 (1.7-7.2); Neutrophils Percent Auto 60.1 % (50.0-70.0); Platelet Count Result 327 K/mm3 (150-420); Red Blood Count 4.72 M/mm3 (4.20-5.40); Red Cell Distribution Width 13.4 % (11.6-14.4); White Blood Count 9.8 K/mm3 (4.8-10.8)
[2023-05-21 10:04] LABS: Hemoglobin A1C 7.4 % (<5.7)
[2023-05-21 10:29] LABS: Alanine Aminotransferase 33 U/L (14-59); Albumin Level 3.5 g/dL (3.4-5.0); Alkaline Phosphatase 147 U/L (46-116); Anion Gap 10 mmol/L (8-16); Aspartate Amino Transferase 31 U/L (15-37); Bilirubin,Total 0.4 mg/dL (0.00-1.00); Blood Urea Nitrogen 13 mg/dL (7-18); Carbon Dioxide 28 mmol/L (21-32); Chloride 102 mmol/L (98-108); Cholesterol 145 mg/dL (0-200); Estimated Glomerular Filt Rate > 60; Glucose 162 mg/dL (70-99); HDL Direct 46 mg/dL (40-60); LDL Cholesterol Calculated 74 mg/dL (<130); Osmolality Calculated 294 mOsm/kg (285-295); Potassium 5.4 mmol/L (3.5-5.1); Sodium 140 mmol/L (136-145); Thyroid Stimulating Hormone 2.22 uIU/mL (0.36-3.74); Total Protein 6.3 g/dL (6.4-8.2); Triglycerides 127 mg/dL (0-150)
== END 2023-05-21 09:32 | disposition home or self-care (01) ==
LOC: CHSLAB 09:34
PROVIDERS: PCP Physician Assistant; Visit Provider Physician Assistant
DX: E11.69 Type 2 diabetes mellitus with other specified complication (principal); I10 Essential (primary) hypertension; M25.551 Pain in right hip
CPT/HCPCS: 36415; 73502; 80053; 80061; 83036; 84443; 85025

== ENCOUNTER 2023-06-25 14:29 | Outpatient (CLI) | payer OTHER, SELFPAY ==
[2023-06-25 14:45] LABS: Basophils Absolute Auto 0.06 K/mm3 (0.00-0.10); Basophils Percent Auto 0.6 % (0.0-1.0); Eosinophils Absolute Auto 0.35 K/mm3 (0.02-0.50); Eosinophils Percent Auto 3.7 % (1.0-6.0); Hematocrit 38.2 % (35.0-49.0); Hemoglobin 12.4 g/dL (12.0-15.0); Immature Granulocyte Absolute 0.02 K/mm3 (0.00-0.00); Immature Granulocyte Percent A 0.2 % (0.0-0.0); Lymphocytes Absolute Auto 2.23 K/mm3 (1.10-4.50); Lymphocytes Percent Auto 23.7 % (18.0-42.0); Mean Corpuscular HGB Conc 32.5 g/dL (32-36); Mean Corpuscular Volume 86.2 fL (78.0-102.0); Mean Platelet Volume 9.2 fl (9.2-11.8); Monocytes Absolute Auto 0.82 K/mm3 (0.10-0.90); Monocytes Percent Auto 8.7 % (2.0-11.0); Neutrophils Absolute Auto 5.94 K/mm3 (1.70-7.20); Neutrophils Percent Auto 63.1 % (50.0-70.0); Platelet Count Result 308 K/mm3 (150-420); Red Blood Count 4.43 M/mm3 (4.20-5.40); Red Cell Distribution Width 12.9 % (11.6-14.4); White Blood Count 9.4 K/mm3 (4.8-10.8)
[2023-06-25 15:26] LABS: Alanine Aminotransferase 28 U/L (14-59); Albumin Level 3.5 g/dL (3.4-5.0); Alkaline Phosphatase 142 U/L (46-116); Anion Gap 5 mmol/L (8-16); Aspartate Amino Transferase 21 U/L (15-37); Bilirubin,Total 0.3 mg/dL (0.00-1.00); Blood Urea Nitrogen 14 mg/dL (7-18); Calcium 8.9 mg/dL (8.5-10.1); Carbon Dioxide 34 mmol/L (21-32); Chloride 102 mmol/L (98-108); Estimated Glomerular Filt Rate > 60; Glucose 198 mg/dL (70-99); Osmolality Calculated 298 mOsm/kg (285-295); Potassium 4.9 mmol/L (3.5-5.1); Sodium 141 mmol/L (136-145); Total Protein 6.3 g/dL (6.4-8.2)
== END 2023-06-25 14:30 | disposition home or self-care (01) ==
LOC: CHSLAB 14:32
PROVIDERS: PCP Physician Assistant; Visit Provider Physician Assistant
DX: E87.5 Hyperkalemia (principal); D72.9 Disorder of white blood cells, unspecified
CPT/HCPCS: 36415; 80053; 85025

== ENCOUNTER 2023-07-05 08:41 | Outpatient (CLI) | payer OTHER, SELFPAY ==
--- NOTE | 2023-07-05 08:50 | ECHO_ITS ---
Patient Info Name: Sher Billings Age: 63 years : 1960 Gender: Female Ht: 63 in Wt: 215 lbs BSA: 2.13 m2 HR: 75 bpm BP: 162 / 92 mmHg Heart Rhythm: Sinus Rhythm Technical Quality: Good, Fair Exam Date: 07/05/2023 9:09 AM Exam Location: Echo Lab Patient Status: Outpatient Admit Date: 07/05/2023 Staff Ordering Physician: Rayshawn Contreras DO Leasing Specialist: Cristy Soto RDCS Attending Provider: Rayshawn Contreras DO Referring Physician: Ben ENGLISH; Exam Type: CA echo doppler color flow Study Info Indications - other forms dyspnea Complete two-dimensional, color flow and Doppler transthoracic echocardiogram is performed. Summary 1. Complete two-dimensional, color flow and Doppler transthoracic echocardiogram is performed. 2. Left ventricular chamber dimension is normal. 3. Left ventricular systolic function is normal, estimated at 60-65%. 4. The left ventricular diastolic function is grade I diastolic dysfunction. 5. E/e' 9 is minimally elevated. 6. No pulmonary hypertension, estimated pulmonary arterial systolic pressure is 24 mmHg. Left Ventricle E/e' 9 is minimally elevated. Left ventricular chamber dimension is normal. Left ventricular systolic function is normal, estimated at 60-65%. The left ventricular diastolic function is grade I diastolic dysfunction. Right Ventricle Right ventricular systolic function is normal and with normal TAPSE 2.7 cm. Right ventricular chamber dimension is normal. Left Atria Left atrial chamber dimension is normal. Right Atria Right atrial chamber dimension is normal. Aortic Valve The aortic valve is trileaflet. There is no aortic valve stenosis. There is no aortic valve regurgitation. Pulmonic Valve There is no pulmonic regurgitation. Mitral Valve There is no mitral valve stenosis. There is no mitral valve regurgitation. Tricuspid Valve There is no tricuspid valve regurgitation. No pulmonary hypertension, estimated pulmonary arterial systolic pressure is 24 mmHg. Pericardium/Pleural There is no pericardial effusion. Inferior Vena Cava Normal inferior vena cava with >50% collapse upon inspiration consistent with normal right atrial pressure, 5 mmHg. Aorta The aortic root size at the sinus of Valsalva is normal. Left Ventricular Outflow Tract Name Value Normal LVOT 2D LVOT Diameter 2.0 cm LVOT Doppler LVOT Peak Velocity 122 cm/s LVOT Peak Gradient 6 mmHg LVOT Mean Gradient 4 mmHg LVOT VTI 45 cm LVOT VTI/AV VTI Ratio 1.2 LVOT Stroke Volume 139 ml Pulmonic Valve Name Value Normal RVOT Doppler RVOT Peak Gradient 3 mmHg PV Doppler PV Peak Velocity 96 cm/s PV Peak Gradient 4 mm
== END 2023-07-05 08:42 | disposition home or self-care (01) ==
LOC: CHSIMG 08:42
PROVIDERS: PCP Physician Assistant; Visit Provider Internal Medicine Cardiovascular Disease
DX: R06.09 Other forms of dyspnea (principal)
CPT/HCPCS: 93306

== ENCOUNTER 2023-07-22 13:12 | Outpatient (RCR) | payer OTHER, SELFPAY ==
--- NOTE | 2023-07-22 14:32 | OPREHPOC ---
Outpatient Therapy Plan of Care This is a Multidisciplinary Plan of Care that may contain components documented by all disciplines (PT, OT, and ST.) PT Problem 1 PT Problem #1 Knowledge Deficit PT Goal 1 Goal Patient to demonstrate independence with HEP Target Visit 5 PT Problem 2 PT Problem #2 Pain PT Goal 1 Goal 1. Patient to report highest pain at 2/10 2. Patient to report ability to complete HEP without increase in pain Target Visit 10 PT Problem 3 PT Problem #3 Impaired Range of Motion PT Goal 1 Goal Patient to demonstrate ability to reach to floor to return to picking up objects for house hold tasks Target Visit 10 PT Problem 4 PT Problem #4 Impaired Strength PT Goal 1 Goal 1. Patient to demonstrate 4+/5 B hip strength to return to ambulating prolonged distances without increase in pain Target Visit 10 PT Problem 5 PT Problem #5 Impaired Functional Mobil PT Goal 1 Goal 1. Patient to demonstrate <20% improvement on Back Index 2. Patient to report ability to sit for >30 minutes with no increase in back pain 3. 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
--- NOTE | 2023-07-22 14:32 | PTOPEVAL1 ---
Assessment and note entered by Cherelle Lewis DPT Evaluation Information Assessment Status Evaluation Diagnosis low back pain, B LE pain Onset 07/15/23 Subjective Information Patient reports over the last month she has had worsening back pain with radiating pain to B hips. She reports at times pain with radiate to the knee. She denies numbness or tingling. She reports pain is worse with walking, lifting, sitting for long periods of time and bending over. She reports that she has not taken any pain medication yet. 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 She returns to MD in 1 month. Reported Pain Level Pain Score 5,3: Self Report Assessment PT Clinical Summary Mrs. Billings is a 63 year old female who presents to PT with low back and B hip pain. She demonstrates decreased lumbar ROM, decreased B hip strength and tenderness at B greater trochanter with symptoms consistent with lumbar degeneration and hip bursitis limiting her ability to lift objects from the floor, walk to grocery shop and sit for prolonged periods. She would benefit from skilled PT to address impairments and return to OF. Plan of Care Interventions Electrical Stimulation,Gait Training,Hot Pack/Cold Pack,Manual Therapy,Mechanical Traction,Neuro Re- education,Patient/Caregiver Educati,Therapeutic Activities,Therapeutic Exercise PT Services Indicated Yes Treatment Frequency and 2x weekly for 10 visits Duration These treatments will address the objective and functional deficits as defined above. The patient will be advanced safely and appropriately in order for the patient to progress towards his/her prior level of function. Additional exercises will be introduced and as well as a comprehensive home exercise program upon discharge, if needed, ?to ensure carryover of functional gains achieved in the clinic. This treatment plan has been reviewed and agreement upon by the patient.
--- NOTE | 2023-07-29 09:48 | PCPTNOTE ---
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 -Christine Akbar, PT
--- NOTE | 2023-09-02 14:14 | OPREHPOC ---
Outpatient Therapy Plan of Care This is a Multidisciplinary Plan of Care that may contain components documented by all disciplines (PT, OT, and ST.) PT Problem 1 PT Problem #1 Knowledge Deficit PT Goal 1 Goal Patient to demonstrate independence with HEP Target Visit 5 Progress Met PT Problem 2 PT Problem #2 Pain PT Goal 1 Goal 1. Patient to report highest pain at 2/10 2. Patient to report ability to complete HEP without increase in pain. met Target Visit 10 Progress Partially Met PT Problem 3 PT Problem #3 Impaired Range of Motion PT Goal 1 Goal Patient to demonstrate ability to reach to floor to return to picking up objects for house hold tasks Target Visit 10 Progress Met PT Problem 4 PT Problem #4 Impaired Strength PT Goal 1 Goal 1. Patient to demonstrate 4+/5 B hip strength to return to ambulating prolonged distances without increase in pain Target Visit 10 Progress Not Met PT Problem 5 PT Problem #5 Impaired Functional Mobil PT Goal 1 Goal 1. Patient to demonstrate <20% improvement on Back Index. met 2. Patient to report ability to sit for >30 minutes with no increase in back pain. met 3. Patient to demonstrate ability to pecan picker object from floor without increase in back pain. met Target Visit 10 Progress Met
--- NOTE | 2023-09-02 14:15 | PTOPDC ---
Assessment and note entered by JT File, PT Evaluation Information Assessment Status Discharge Diagnosis low back pain, B LE pain Onset 07/15/23 Subjective Information patient reports she feels pretty good today. she reports she has low pain in the back and hips. she reports she does not feel she needs to continue therapy at this time. she reports she is compliant with her HEP at home, and it has improved her function and activity performance. she reports the exercises do help to get her moving and keep her moving. Reported Pain Level Pain Score 3,3,3: Self Report Assessment PT Clinical Summary mrs. steward presents to skilled PT for her 10th skilled PT visit. she presents with decreased pain , and improvement on the oswestry assessment. she also displays improved active lumbar mobility, hamstrings flexibility, and functional activity performance/tolerance. she has met goals for HEP performance, functional mobility, and rom. she will DC skilled PT today and continue with HEP independent at home. Plan of Care PT Services Indicated Yes
== END 2023-09-02 15:17 | disposition home or self-care (01) ==
LOC: CHSPT 13:12
PROVIDERS: Visit Provider Nurse Practitioner Adult Health
DX: M47.26 Other spondylosis with radiculopathy, lumbar region (principal)
CPT/HCPCS: 97014; 97110; 97140; 97161; G0283

== ENCOUNTER 2023-08-06 09:03 | Outpatient (CLI) | payer OTHER, SELFPAY ==
[2023-08-06 09:40] LABS: Basophils Absolute Auto 0.06 K/mm3 (0.00-0.10); Basophils Percent Auto 0.7 % (0.0-1.0); Eosinophils Absolute Auto 0.33 K/mm3 (0.02-0.50); Eosinophils Percent Auto 3.6 % (1.0-6.0); Hematocrit 40.3 % (35.0-49.0); Hemoglobin 12.7 g/dL (12.0-15.0); Immature Granulocyte Absolute 0.06 K/mm3 (0.00-0.00); Immature Granulocyte Percent A 0.7 % (0.0-0.0); Lymphocytes Absolute Auto 1.99 K/mm3 (1.10-4.50); Lymphocytes Percent Auto 21.7 % (18.0-42.0); Mean Corpuscular HGB Conc 31.5 g/dL (32-36); Mean Corpuscular Hemoglobin 27.3 pg (27.0-31.0); Mean Corpuscular Volume 86.5 fL (78.0-102.0); Mean Platelet Volume 9.1 fl (9.2-11.8); Monocytes Absolute Auto 0.86 K/mm3 (0.10-0.90); Monocytes Percent Auto 9.4 % (2.0-11.0); Neutrophils Absolute Auto 5.87 K/mm3 (1.70-7.20); Neutrophils Percent Auto 63.9 % (50.0-70.0); Platelet Count Result 335 K/mm3 (150-420); Red Blood Count 4.66 M/mm3 (4.20-5.40); Red Cell Distribution Width 12.9 % (11.6-14.4); White Blood Count 9.2 K/mm3 (4.8-10.8)
[2023-08-06 09:48] LABS: Hemoglobin A1C 6.9 % (<5.7)
[2023-08-06 10:11] LABS: Alanine Aminotransferase 33 U/L (14-59); Albumin Level 3.6 g/dL (3.4-5.0); Alkaline Phosphatase 147 U/L (46-116); Anion Gap 10 mmol/L (4-12); Aspartate Amino Transferase 28 U/L (15-37); Bilirubin,Total 0.4 mg/dL (0.00-1.00); Blood Urea Nitrogen 9 mg/dL (7-18); Calcium 8.9 mg/dL (8.5-10.1); Carbon Dioxide 28 mmol/L (21-32); Chloride 103 mmol/L (98-108); Cholesterol 125 mg/dL (0-200); Estimated Glomerular Filt Rate > 60; Glucose 101 mg/dL (70-99); HDL Direct 42 mg/dL (40-60); LDL Cholesterol Calculated 60 mg/dL (<130); Osmolality Calculated 290 mOsm/kg (285-295); Potassium 4.4 mmol/L (3.5-5.1); Sodium 141 mmol/L (136-145); Thyroid Stimulating Hormone 2.87 uIU/mL (0.36-3.74); Total Protein 6.3 g/dL (6.4-8.2); Triglycerides 114 mg/dL (0-150)
[2023-08-06 10:45] LABS: Creatinine Urine 159.45 mg/dL (40-278); MALB Creatinine Ratio 8.1 mg/g (0-30); Microalbumin Urine Random < 13.0 mg/L
== END 2023-08-06 09:04 | disposition home or self-care (01) ==
LOC: CHSLAB 09:06
PROVIDERS: PCP Physician Assistant; Visit Provider Physician Assistant
DX: E87.5 Hyperkalemia (principal); D72.9 Disorder of white blood cells, unspecified; E11.69 Type 2 diabetes mellitus with other specified complication; E78.5 Hyperlipidemia, unspecified; F41.9 Anxiety disorder, unspecified; I10 Essential (primary) hypertension
CPT/HCPCS: 36415; 80053; 80061; 82043; 83036; 84443; 85025

== ENCOUNTER 2023-10-28 08:53 | Outpatient (CLI) | payer OTHER, SELFPAY ==
[2023-10-28 09:17] LABS: Basophils Absolute Auto 0.04 K/mm3 (0.00-0.10); Basophils Percent Auto 0.4 % (0.0-1.0); Eosinophils Absolute Auto 0.21 K/mm3 (0.02-0.50); Eosinophils Percent Auto 2.2 % (1.0-6.0); Hematocrit 39.1 % (35.0-49.0); Hemoglobin 12.8 g/dL (12.0-15.0); Immature Granulocyte Absolute 0.04 K/mm3 (0.00-0.00); Immature Granulocyte Percent A 0.4 % (0.0-0.0); Lymphocytes Absolute Auto 1.98 K/mm3 (1.10-4.50); Lymphocytes Percent Auto 20.3 % (18.0-42.0); Mean Corpuscular HGB Conc 32.7 g/dL (32-36); Mean Corpuscular Hemoglobin 27.9 pg (27.0-31.0); Mean Corpuscular Volume 85.2 fL (78.0-102.0); Mean Platelet Volume 9.4 fl (9.2-11.8); Monocytes Absolute Auto 0.94 K/mm3 (0.10-0.90); Monocytes Percent Auto 9.7 % (2.0-11.0); Neutrophils Absolute Auto 6.52 K/mm3 (1.70-7.20); Platelet Count Result 306 K/mm3 (150-420); Red Blood Count 4.59 M/mm3 (4.20-5.40); White Blood Count 9.7 K/mm3 (4.8-10.8)
[2023-10-28 09:26] LABS: Hemoglobin A1C 7.5 % (<5.7)
[2023-10-28 10:03] LABS: Cholesterol 141 mg/dL (0-200); HDL Direct 45 mg/dL (40-60); LDL Cholesterol Calculated 77 mg/dL (<130); Triglycerides 95 mg/dL (0-150)
[2023-10-28 15:16] LABS: Alanine Aminotransferase 40 U/L (14-59); Albumin Level 3.6 g/dL (3.4-5.0); Alkaline Phosphatase 130 U/L (46-116); Anion Gap 10 mmol/L (4-12); Aspartate Amino Transferase 30 U/L (15-37); Bilirubin,Total 0.4 mg/dL (0.00-1.00); Blood Urea Nitrogen 15 mg/dL (7-18); Calcium 9.2 mg/dL (8.5-10.1); Carbon Dioxide 28 mmol/L (21-32); Chloride 100 mmol/L (98-108); Estimated Glomerular Filt Rate > 60; Glucose 140 mg/dL (70-99); Osmolality Calculated 288 mOsm/kg (285-295); Potassium 4.3 mmol/L (3.5-5.1); Sodium 138 mmol/L (136-145); Thyroid Stimulating Hormone 2.12 uIU/mL (0.36-3.74); Total Protein 6.5 g/dL (6.4-8.2)
== END 2023-10-28 08:54 | disposition home or self-care (01) ==
LOC: CHSLAB 08:55
PROVIDERS: PCP Physician Assistant; Visit Provider Physician Assistant
DX: E11.69 Type 2 diabetes mellitus with other specified complication (principal); E78.5 Hyperlipidemia, unspecified; I10 Essential (primary) hypertension
CPT/HCPCS: 36415; 80053; 80061; 83036; 84443; 85025

== ENCOUNTER 2024-01-06 09:21 | Outpatient (CLI) | payer OTHER, SELFPAY ==
[2024-01-06 09:50] LABS: Basophils Absolute Auto 0.06 K/mm3 (0.00-0.10); Basophils Percent Auto 0.6 % (0.0-1.0); Eosinophils Absolute Auto 0.38 K/mm3 (0.02-0.50); Eosinophils Percent Auto 3.7 % (1.0-6.0); Hematocrit 39.1 % (35.0-49.0); Hemoglobin 12.6 g/dL (12.0-15.0); Immature Granulocyte Absolute 0.04 K/mm3 (0.00-0.00); Immature Granulocyte Percent A 0.4 % (0.0-0.0); Lymphocytes Absolute Auto 2.01 K/mm3 (1.10-4.50); Lymphocytes Percent Auto 19.7 % (18.0-42.0); Mean Corpuscular HGB Conc 32.2 g/dL (32-36); Mean Corpuscular Hemoglobin 27.8 pg (27.0-31.0); Mean Corpuscular Volume 86.1 fL (78.0-102.0); Mean Platelet Volume 9.3 fl (9.2-11.8); Monocytes Absolute Auto 0.83 K/mm3 (0.10-0.90); Monocytes Percent Auto 8.1 % (2.0-11.0); Neutrophils Absolute Auto 6.89 K/mm3 (1.70-7.20); Neutrophils Percent Auto 67.5 % (50.0-70.0); Platelet Count Result 336 K/mm3 (150-420); Red Blood Count 4.54 M/mm3 (4.20-5.40); Red Cell Distribution Width 13.2 % (11.6-14.4); White Blood Count 10.2 K/mm3 (4.8-10.8)
[2024-01-06 10:02] LABS: Hemoglobin A1C 7.4 % (<5.7)
[2024-01-06 10:46] LABS: Alanine Aminotransferase 29 U/L (14-59); Albumin Level 3.4 g/dL (3.4-5.0); Alkaline Phosphatase 124 U/L (46-116); Anion Gap 9 mmol/L (4-12); Aspartate Amino Transferase 24 U/L (15-37); Bilirubin,Total 0.4 mg/dL (0.00-1.00); Blood Urea Nitrogen 12 mg/dL (7-18); Carbon Dioxide 29 mmol/L (21-32); Chloride 103 mmol/L (98-108); Cholesterol 140 mg/dL (0-200); Estimated Glomerular Filt Rate > 60; Glucose 124 mg/dL (70-99); HDL Direct 46 mg/dL (40-60); LDL Cholesterol Calculated 76 mg/dL (<130); Osmolality Calculated 292 mOsm/kg (285-295); Potassium 4.6 mmol/L (3.5-5.1); Sodium 141 mmol/L (136-145); Total Protein 6.5 g/dL (6.4-8.2); Triglycerides 91 mg/dL (0-150)
[2024-01-08 08:48] LABS: TSH QUEST 2.21 mIU/L (0.40-4.50)
== END 2024-01-06 09:22 | disposition home or self-care (01) ==
PROVIDERS: PCP Physician Assistant; Visit Provider Physician Assistant
DX: I10 Essential (primary) hypertension (principal); E11.40 Type 2 diabetes mellitus with diabetic neuropathy, unspecified; E16.9 Disorder of pancreatic internal secretion, unspecified; E78.5 Hyperlipidemia, unspecified
CPT/HCPCS: 36415; 80053; 80061; 83036; 84443; 84481; 85025; 86376

== ENCOUNTER 2024-03-22 14:19 | Outpatient (CLI) | payer OTHER, SELFPAY ==
--- NOTE | ~2024-03-22 | MM_ITS ---
EXAMINATION: MM screening eduardo BI w cameron HISTORY: Screening TECHNIQUE: Craniocaudal and mediolateral oblique 3-D tomosynthesis images were obtained and synthetic 2-D images were generated. CAD analysis was submitted and interpreted. COMPARISON: 01/26/2023 BREAST PARENCHYMAL COMPOSITION: Not Dense: The breasts are almost entirely fatty. FINDINGS: There is no evidence of suspicious mass, calcification, or architectural distortion to sugg est malignancy in either breast. There has been no suspicious interval change. IMPRESSION: 1. No mammographic evidence of malignancy. 2. Recommend routine screening mammography in one year. BI-RADS Category 1: Negative Reviewed, dictated and finalized at location B. NE OIL TERMINAL SUPERINTENDENT
== END 2024-03-22 14:20 | disposition home or self-care (01) ==
PROVIDERS: PCP Physician Assistant; Visit Provider Nurse Practitioner Family
DX: Z12.31 Encounter for screening mammogram for malignant neoplasm of breast (principal)
CPT/HCPCS: 77063; 77067

== ENCOUNTER 2024-03-28 09:29 | Outpatient (CLI) | payer OTHER, SELFPAY ==
[2024-03-28 11:11] LABS: Hemoglobin A1C 6.7 % (<5.7)
== END 2024-03-28 09:30 | disposition home or self-care (01) ==
PROVIDERS: PCP Physician Assistant; Visit Provider Nurse Practitioner Family
DX: E11.65 Type 2 diabetes mellitus with hyperglycemia (principal)
CPT/HCPCS: 36415; 83036

== ENCOUNTER 2024-04-13 15:29 | Outpatient (CLI) | payer OTHER, SELFPAY ==
--- NOTE | ~2024-04-13 | XR_ITS ---
[id number]_CR Ordering provider: Jennifer Ng, NIGHAT History: . NECK PAIN . Comparison: None. FINDINGS: VERTEBRAL BODIES: Normal height and alignment. No visible fracture or subluxation. The dens is intact . DISK SPACES: Narrowing of the disc C5-C6. Uncovertebral joint osteoarthritic changes at the same leve l and C6-C7. PARASPINOUS SOFT TISSUES: No prevertebral soft tissue swelling. Right carotid calcifications. Small c alcific area inferior to the thyroid cartilage is most likely part of the thyroid cartilage. Calcific ation also projected over the arytenoid most likely also calcification and the same cartilage. IMPRESSION: No acute osseous abnormality cervical spine. Reviewed, dictated and finalized at location A. SHELL OPERATOR
--- NOTE | ~2024-04-13 | XR_ITS ---
2 VIEWS SOFT TISSUES NECK Ordering provider: Jennifer Ng, PAYuri History: . Neck Pain on L Side lower c spine . Comparison: None. FINDINGS: SOFT TISSUES: No prevertebral soft tissue swelling. The epiglottis is normal. The pharynx and trach ea appear patent. Right carotid calcifications. Highly suggestive of sliding hiatus hernia. VERTEBRAL BODIES: Normal height and alignment. No acute osseous findings. DISK SPACES: Narrowing of the disc C5-C6. Multilevel uncovertebral joint osteoarthritic changes. IMPRESSION: No definite abnormality seen in the soft tissues. Degenerative disc disease at the level of C5-C6. Reviewed, dictated and finalized at location A. F PROJECTIONIST
== END 2024-04-13 15:30 | disposition home or self-care (01) ==
PROVIDERS: PCP Physician Assistant; Visit Provider Physician Assistant
DX: M50.322 Other cervical disc degeneration at C5-C6 level (principal)
CPT/HCPCS: 70360; 72040

== ENCOUNTER 2024-04-19 14:39 | Outpatient (CLI) | payer OTHER, SELFPAY ==
--- NOTE | ~2024-04-19 | XR_ITS ---
EXAMINATION: XR foot LT min 3V DATE: 04/19/2024 14:59 INDICATION: Diabetic left foot ulcer. TECHNIQUE: 4 views of left foot were obtained. COMPARISON: None. FINDINGS: There is severe hallux valgus. There is valgus angulation of second and third metatarsophal angeal joints. There is amputation of the fourth digit at the metatarsophalangeal joint. There is mil d osteoarthritis of first metatarsophalangeal joint and moderate osteoarthritis at third metatarsopha langeal joint and some of the tarsometatarsal joints. There is severe osteoarthritis of third tarsome tatarsal joint. There is an enthesophyte at plantar aspect of calcaneal tuberosity. IMPRESSION: 1. No evidence of osteomyelitis. Reviewed, dictated and finalized at location A. 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
== END 2024-04-19 14:40 | disposition home or self-care (01) ==
PROVIDERS: PCP Physician Assistant; Visit Provider Podiatrist Foot & Ankle Surgery
DX: E11.621 Type 2 diabetes mellitus with foot ulcer (principal)
CPT/HCPCS: 73630

== ENCOUNTER 2024-04-21 14:27 | Outpatient (RCR) | payer OTHER, SELFPAY ==
--- NOTE | 2024-04-21 15:23 | OPREHPOC ---
Outpatient Therapy Plan of Care This is a Multidisciplinary Plan of Care that may contain components documented by all disciplines (PT, OT, and ST.) PT Problem 1 PT Problem #1 Knowledge Deficit PT Goal 1 Goal / Goal Update 1. independent and compliant with HEP Target Visit 6 PT Problem 2 PT Problem #2 Pain PT Goal 1 Goal / Goal Update 1. decrease pain at worst to 2/10 or less in the L neck Target Visit 12 PT Problem 3 PT Problem #3 Impaired Range of Motion PT Goal 1 Goal / Goal Update 1. 45 degrees or better active flex and ext of the cervical spine 2. 35 degrees or better active bilateral cervical side bending 3. 75 degrees or better active bilateral cervical rotation Target Visit 12 PT Problem 4 PT Problem #4 Impaired Strength PT Goal 1 Goal / Goal Update 1. 4+/5 or better L shoulder abd 2. 4+/5 or better deep neck flexion Target Visit 12 PT Problem 5 PT Problem #5 Impaired Functional Mobility PT Goal 1 Goal / Goal Update 1. patient to drive without having to turn body to look over shoulders 2. NDI to display 20% or less functional deficits Target Visit 12
--- NOTE | 2024-04-21 15:23 | PTOPEVAL1 ---
Assessment and note entered by JT File, PT Evaluation Information Assessment Status Evaluation ICD-10 Condition Codes (PT) Cervicalgia M54.2 Onset 03/26/24 Subjective Information patient has been having issues with the L side of her neck for about 1 month. she reports there was no injury. she reports she is having throbbing pain in the L side of the neck/upper shoulder and upper back. she reports she has increased pain and symptoms with repetitive movement, especially looking to her L side. she reports she has had xrays of the neck. she reports she has to turn her whole body to look to the L side when driving. Reported Pain Level Pain Score 5: Self Report Assessment PT Clinical Summary mrs. steward is a 63 yo woman who presents to skilled PT services for evaluation and treatment of L neck pain. she presents today with deficits in cervical rom, tenderness to the L UT/levtor/sub occipitals, and deficits in functional activity performance due to her pain and symptoms. she likely suffers from L UT strain. she would benefit from continued skilled PT to address her objective/functional deficits and return to her prior level functional activity performance/ quality of life. Plan of Care Interventions Electrical Stimulation,Hot Pack/Cold Pack,Manual Therapy,Neuro Re-education,Patient/Caregiver Education,Therapeutic Activities,Therapeutic Exercise PT Services Indicated Yes Treatment Frequency and 3x weekly for 12 visits Duration These treatments will address the objective and functional deficits as defined above. The patient will be advanced safely and appropriately in order for the patient to progress towards his/her prior level of function. Additional exercises will be introduced and as well as a comprehensive home exercise program upon discharge, if needed, ?to ensure carryover of functional gains achieved in the clinic. This treatment plan has been reviewed and agreement upon by the patient.
--- NOTE | 2024-05-01 13:03 | PCPTNOTE ---
Cancelled session due to a previous appointment. Will be here Wednesday.
--- NOTE | 2024-05-19 14:00 | PCPTNOTE ---
Forgot about appointment, will be here Wednesday.
== END 2024-07-20 23:59 | disposition home or self-care (01) ==
LOC: CHSPT 14:27
PROVIDERS: Visit Provider Physician Assistant
DX: M54.2 Cervicalgia (principal)
CPT/HCPCS: 97014; 97110; 97112; 97140; 97161; G0283

== ENCOUNTER 2024-05-18 09:54 | Outpatient (CLI) | payer OTHER, SELFPAY ==
--- NOTE | ~2024-05-18 | MR_ITS ---
EXAMINATION: MR foot RT wo con DATE: 05/18/2024 10:43 INDICATION: Diabetic right foot ulcer TECHNIQUE: Magnetic resonance imaging (MRI) of the right fore/mid foot was performed without intraven ous contrast. Sequences included sagittal T1-weighted FSE, sagittal fluid sensitive FSE STIR, coronal PD-weighted FS FSE, coronal T1-weighted FSE, axial PD-weighted FS FSE, and axial PD-weighted FSE. 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 The remaining t oes are clawed and the first second and third toes are deviated laterally. There is an ulceration kaleb kyler to the second proximal interphalangeal joint with prominent surrounding soft tissue edema. There is joint increased marrow fluid signal and loss of the normal T1 hyperintense fat signal involving mu ch of the second proximal and middle phalanges centered at the proximal interphalangeal joint consist ent with septic arthritis and osteomyelitis. There is pes planus with moderate polyarticular osteoart hritis with prominent subarticular cystlike changes involving the partially visualized ankle joint an d the articulations between the navicula, the medial, middle and lateral cuneiforms at the base of th e second, third and fourth metatarsals. Less severe mild osteoarthritis at the talonavicular, first a nd fifth tarsal metatarsal joints and many of the metatarsophalangeal and interphalangeal joints. No fracture or other region suspicious for osteomyelitis. No joint effusion or abscess IMPRESSION: 1. 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 2. 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 Reviewed, dictated and finalized at location [facility] IMPRESSION: 1. Septic arthritis at the second proximal interphalangeal joint with osteomyel itis extending into the adjacent second proximal and middle phalanges. 2. 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
--- OUTSIDE RECORDS SUMMARY | 2024-05-18 10:19 | XMS_ITS | Clinical Summary ---
Author Organization [facility] Address [address] [place] [address] Care Team Providers Care Windows Infrastructure Engineer Name Role Phone Jennifer Ng Primary Care Provider [phone] Allergies Active Allergy Reactions Criticality Noted Date Comments Sulfa Antibiotics Hallucinations 09/20/2015 Hydrocodone-Acetaminophen Vomiting 09/20/2015 Medications gabapentin 300 MG capsule Take 300 mg by mouth 3 (three) times daily. 03/31/2019 Active aspirin EC 325 MG tablet Take 325 mg by mouth daily. 01/10/2014 Active atorvastatin 10 MG tablet Take 10 mg by mouth daily. 07/25/2014 Active DULoxetine 60 MG capsule Take 60 mg by mouth daily. 08/27/2019 Active glipiZIDE XL 10 MG 24 hr tablet Take 10 mg by mouth daily. 07/31/2019 Active BASAGLAR KWIKPEN 100 UNIT/ML injection (PEN) Inject 30 Units into the skin 2 (two) times daily. 08/31/2019 Active lisinopril 10 MG tablet Take 10 mg by mouth daily. 07/31/2019 Active metFORMIN ER, MOD, 1000 MG 24 hr tablet Take 1,000 mg by mouth 2 (two) times a day. 09/01/2019 Active pantoprazole EC 40 MG tablet Take 40 mg by mouth daily. 12/28/2013 Active PARoxetine 10 MG tablet Take 10 mg by mouth daily. 08/30/2019 Active meloxicam 15 MG tablet Take 1 tablet (15 mg total) by mouth daily. 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 11/09/2019 Greater trochanteric bursitis of left hip 2019 Chronic bilateral low back p ain, unspecified whether sciatica present 09/14/2019 Greater trochanteric bursitis of right hip 09/13 Primary osteoarthritis of right hip 09/14/2019 Primary osteoarthritis of left hip 09/14/2019 Family History Medical History Relation Comments Cancer Father No Known Problems Maternal Grandfather Cancer Maternal Grandmother Diabetes Mother Hyperlipidemia Mother Hypertension Mother Thyroid Disease Mother Cancer Paternal Grandfather No Known Problems Paternal Grandmother Diabetes Sister 1 Hyperlipidemia Sister 1 Hypertension Sister 1 Rheumatoid Arthritis Sister 1 Thyroid Disease Sister 1 Diabetes Sister 2 Hyperlipidemia Sister 2 Hypertension Sister 2 Thyroid Disease Sister 2 Diabetes Sister 3 Hyperlipidemia Sister 3 Hypertension Sister 3 Thyroid Disease Sister 3 Hyperlipidemia Sister 4 Hypertension Sister 4 Thyroid Disease Sister 4 Hyperlipidemia Sister 5 Hypertension Sister 5 Liver Disease Sister 5 Thyroid Disease Sister 5 Relation Status Comments Father (Age 64) non-hodkin's l ymphoma Maternal Grandfather Maternal Grandmother Mother Alive Paternal Grandfather Paternal Grandmother Sister 1 Sister 2 Alive Sister 3 Alive Sister 4 Alive Sister 5 Alive Social History Tobacco Use Types Packs/Day Years Used Date Smoking Tobacco: Never Smokeless Tobacco: Never Alcohol Use Standard Drinks/Week Comments Never 0 (1 standard drink = 0.6 oz pur e alcohol) AUDIT-C Answer Date Recorded Frequency of Alcohol Consumption Never 09/14/2019 Average Number of Drinks Not on file 020 Frequency of Binge Drinking Not on file 07/2019 Comments No Sex and Gender Information Value Date Recorded Sex Assigned at Not on file Legal Sex Female 10:51 PM CDT Gender Identity Not on file Sexual Orientation Not on file Last Filed Vital Signs Vital Sign Reading Time Taken Comments Blood Pressure 110/63 07/08/2015 3:19 PM CDT Pulse 80 07/08/2015 3:18 PM CDT Temperature - - Respiratory Rate 20 07/08/2015 3:18 PM CDT Oxygen Saturation - - Inhaled Oxygen Concentration - - Weight 99.8 kg (220 lb) 12/19/2019 8:43 AM CDT Height 160 cm (5' 3 ) 12/19/2019 8:43 AM CDT Body Mass Index 38.97 12/19/2019 8:43 AM CDT Plan of Treatment Health Maintenance Due Date Last Done Comments Cervical Cancer Screening Pa p Smear (Age 30 to 64) Every 3 Years 1960 Colorectal Cancer Screening Colonoscopy (10 Years) 1960 Annual Physical 1963 Hepatitis C 06/25/1979 DTaP, Tdap and Td Vaccines ( 1 - Tdap) 1980 Cervical Cancer Screening Pa p with HPV Testing (Age 30 to 64) Every 5 Years 06/25/1991 Cervical Cancer Screening with HPV 06/25/1991 Zoster Vaccines (1 of 2) 06/25/2011 Mammogram Screening 04/21/2021 04/21/2019 COVID-19 Vaccine ( - 2023-2 5 season) 2023 Influenza Adult (#1) 2024 RSV Immunization or 60+ Years (1 - 1-dose 75+ series) 2036 Meningococcal B Vaccine Aged Out No l onger eligible based on patient's age to complete this topic Meningococcal Vaccine Aged Out No manjula sarah eligible based on patient's age to complete this topic Pneumococcal Vaccine: Pediat rics (0 to 5 Years) and At-Risk Patients (6 to 64 Years) Aged Out No longer eligi ble based on patient's age to complete this topic RSV Immunizations Under 20 Months Aged Out No longer eligible based on patient's age to complete this topic Procedures Procedure Name Priority Date/Time Associated Diagnosis Comments MG SCREENING W ZANE MARISSA DIGI Routine 04/21/2019 10:45 AM LOADING MACHINE OPERATOR HELPER Visit for screening mammogram from Last 3 Months or Most Recently Relevant to Health Maintenance Results * MG SCREENING W ZANE MARISSA DIGI (04/21/2019 10:45 AM LOADING MACHINE OPERATOR HELPER) Anatomical Region Laterality Modality Breast Bilateral Mammography 04/23/2019 1:54 PM LOADING MACHINE OPERATOR HELPER Impressions 04/23/2019 1:58 PM LOADING MACHINE OPERATOR HELPER IMPRESSION: No interval features to suggest malignancy. In the absence of clinical symptoms, return for annual screening due in one year. RECOMMENDATION: Routine Screening, BILATERAL in 1 year ASSESSMENT: ACR BI-RADS 2 - BENIGN FINDING(S) Interpreted By: Norah Encarnacion MD, 04/23/2019 1:54 PM Narrative 04/23/2019 1:58 PM LOADING MACHINE OPERATOR HELPER EXAMINATION: BILATERAL SCREENING MAMMOGRAPHY CLINICAL INDICATION: 58 years of age female routine screening. COMPARISON: Screening mammogram(s) 01/27, 01/26, 01/15 TECHNIQUE: Digital CC & MLO views. Tomosynthesis imaging acquisition Study read with the assistance of a computer-aided detection system. TISSUE DENSITY: There are scattered areas of fibroglandular density. FINDINGS: Diffuse calcifications. Fairly stable glandular pattern with asymmetric nodular parenchymal patches and nodular densities relatively unchanged given differences in technique and involutional changes when compared to prior studies. At least one of the nodules has appearance of a stable benign morphology lymph node. Given longevity with stability, this favors findings of low malignant potential at this time. No suspicious grouping of microcalcifications, architectural distortion, or new dominant suspicious nodule 3 dimensionally demonstrated in either breast. Jennifer CHEN MAMMO Final Result from Last 3 Months or Most Recently Relevant to Health Maintenance Insurance Care Teams Windows Infrastructure Engineer Relationship Specialty Start Date End Date Jennifer Ng PA [address] [place] [address] PCP - General PHYSICIAN FOUNTAIN MANAGER 03/27/19
--- OUTSIDE RECORDS SUMMARY | 2024-05-18 10:19 | XMS_ITS | Encounter Summary ---
Author Organization [facility] Address [facility] [place] [address] Care Team Providers Care Cloud Engineer Name Role Phone Jennifer Ng Primary Care Provider [phone] Encounter Details Date Type Department Care Team (Late st Contact Info) Description 02/01/2014 Abstract [facility] CONVERSION [address] [place] [address] , Generic ConversionMD Social History Tobacco Use Types Packs/Day Years Used Date Smoking Tobacco: Never Comments Unknown Sex and Gender Information Value Date Recorded Sex Assigned at Not on file Legal Sex Female 10:51 PM CDT Gender Identity Not on file Sexual Orientation Not on file documented as of this encounter Plan of Treatment Not on file documented as of this encounter Visit Diagnoses Not on filedocumented in this encounter Care Teams Cloud Engineer Relationship Specialty Start Date End Date Jennifer Ng PA [address] [place] [address] PCP - General PHYSICIAN QUARRY EXTRACTION WORKER 03/27/19 documented as of this encounter
[2024-05-18 10:34] LABS: Hematocrit 39.9 % (35.0-49.0); Hemoglobin 12.3 g/dL (12.0-15.0); Mean Corpuscular HGB Conc 30.8 g/dL (32-36); Mean Corpuscular Hemoglobin 26.3 pg (27.0-31.0); Mean Corpuscular Volume 85.3 fL (78.0-102.0); Mean Platelet Volume 9.3 fl (9.2-11.8); Platelet Count Result 407 K/mm3 (150-420); Red Blood Count 4.68 M/mm3 (4.20-5.40); Red Cell Distribution Width 13.1 % (11.6-14.4); White Blood Count 10.8 K/mm3 (4.8-10.8)
[2024-05-18 10:48] LABS: Hemoglobin A1C 6.6 % (<5.7)
[2024-05-18 12:28] LABS: CRP < 0.5 mg/dL (0.0-0.9)
[2024-05-18 12:29] LABS: Erythrocyte Sedimentation Rate 24 mm/hr (0-20)
[2024-05-22 15:27] LABS: Alanine Aminotransferase 34 U/L (14-59); Albumin Level 3.7 g/dL (3.4-5.0); Alkaline Phosphatase 151 U/L (46-116); Anion Gap 11 mmol/L (4-12); Aspartate Amino Transferase 28 U/L (15-37); Bilirubin,Total 0.4 mg/dL (0.00-1.00); Blood Urea Nitrogen 10 mg/dL (7-18); Calcium 9.4 mg/dL (8.5-10.1); Carbon Dioxide 27 mmol/L (21-32); Chloride 102 mmol/L (98-108); Estimated Glomerular Filt Rate > 60; Glucose 75 mg/dL (70-99); Osmolality Calculated 288 mOsm/kg (285-295); Potassium 5.6 mmol/L (3.5-5.1); Sodium 140 mmol/L (136-145); Total Protein 6.8 g/dL (6.4-8.2)
== END 2024-05-18 09:55 | disposition home or self-care (01) ==
LOC: CHSIMG 09:56
PROVIDERS: PCP Physician Assistant; Visit Provider Podiatrist Foot & Ankle Surgery
DX: L03.115 Cellulitis of right lower limb (principal); M00.9 Pyogenic arthritis, unspecified; M19.071 Primary osteoarthritis, right ankle and foot; M86.9 Osteomyelitis, unspecified
CPT/HCPCS: 36415; 73718; 80053; 83036; 85027; 85652; 86140

== ENCOUNTER 2024-09-27 08:57 | Outpatient (CLI) | payer OTHER, SELFPAY ==
[2024-09-27 09:24] LABS: Basophils Absolute Auto 0.06 K/mm3 (0.00-0.10); Basophils Percent Auto 0.7 % (0.0-1.0); Eosinophils Absolute Auto 0.18 K/mm3 (0.02-0.50); Hematocrit 40.4 % (35.0-49.0); Hemoglobin 12.9 g/dL (12.0-15.0); Immature Granulocyte Absolute 0.03 K/mm3 (0.00-0.00); Immature Granulocyte Percent A 0.3 % (0.0-0.0); Lymphocytes Absolute Auto 2.02 K/mm3 (1.10-4.50); Lymphocytes Percent Auto 22.4 % (18.0-42.0); Mean Corpuscular HGB Conc 31.9 g/dL (32-36); Mean Corpuscular Hemoglobin 27.8 pg (27.0-31.0); Mean Corpuscular Volume 87.1 fL (78.0-102.0); Mean Platelet Volume 9.2 fl (9.2-11.8); Monocytes Absolute Auto 0.84 K/mm3 (0.10-0.90); Monocytes Percent Auto 9.3 % (2.0-11.0); Neutrophils Percent Auto 65.3 % (50.0-70.0); Platelet Count Result 358 K/mm3 (150-420); Red Blood Count 4.64 M/mm3 (4.20-5.40); Red Cell Distribution Width 13.6 % (11.6-14.4)
[2024-09-27 09:25] LABS: Add Urine Microscopic? YES; Appearance Urine Sl Cloudy (Clear); Bilirubin Urine Negative (Negative); Blood Urine Negative (Negative); Color Urine Yellow (Yellow); Glucose Urine UA Negative (Negative); Ketones Urine Trace (Negative); Leukocyte Esterase Ur 1+ (Negative); Nitrate Urine Negative (Negative); Protein Urine Negative (Negative); pH Urine 6.5 (5.0-8.0)
[2024-09-27 09:32] LABS: Bacteria Urine 2+ /hpf; RBC Urine 0-2 /hpf (0-2); Squamous Epithelial Cell Urine Moderate /hpf (Few); WBC Urine 0-3 /hpf (0-3)
[2024-09-27 09:33] LABS: Hemoglobin A1C 6.4 % (<5.7)
[2024-09-27 09:34] LABS: Creatinine Urine 213.5 mg/dL
--- OUTSIDE RECORDS SUMMARY | 2024-09-27 09:34 | XMS_ITS | Encounter Summary ---
Author Organization [facility] Address [address] [place] [address] Phone Care Team Providers Care Banking Manager Name Role Phone Jennifer Ng Primary Care Provider + Reason for Visit * Reason Comments Medication Refill Encounter Details Date Type Department Care Team (Late Contact Info) Description 07/06/2024 [facility] [address] [place] [address] Mery Martinez, WEAVER WIRE LOOM, PRINTED PRODUCTS ASSEMBLER [address] [place] [address] Medication Refill Social History Tobacco Use Types Packs/Day Years Used Date Smoking Tobacco: Never Assessed Comments Unknown Sex and Gender Information Value Date Recorded Sex Assigned at Not on file 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
--- OUTSIDE RECORDS SUMMARY | 2024-09-27 09:34 | XMS_ITS | Encounter Summary ---
Author Organization [facility] Address [address] [place] [address] Phone Care Team Providers Care Certified Energy Manager Name Role Phone Jennifer Ng Primary Care Provider + Reason for Visit * Reason Comments Medication Refill Encounter Details Date Type Department Care Team (Late st Contact Info) Description [facility]20[facility] [address] [place] [address] Mery Martinez, CAREER REPRESENTATIVE, SONG PLUGGER [address] [place] [address] Medication Refill Social History Tobacco Use Types Packs/Day Years Used Date Smoking Tobacco: Never Assessed Comments Unknown Sex and Gender Information Value Date Recorded Sex Assigned at Not on file 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
--- OUTSIDE RECORDS SUMMARY | 2024-09-27 09:34 | XMS_ITS | Clinical Summary ---
Author Organization [facility] Address [address] [place] [address] Phone Care Team Providers Care Certified Addiction Counselor Name Role Phone Jennifer Ng [facility] Primary Care Provider + Encounters Date Type Department Care Team Description 07/11/[facility] [place] [address] [place] [address] Mery Martinez APRN, AYLIN Medication Refill 07/06/2024 [facility] [place] [address] [place] [address] Mery Martinez APRN, AYLIN Medication Refill from Last 3 Months Social History Tobacco Use Types Packs/Day Years Used Date Smoking Tobacco: Never Assessed Comments Unknown Sex and Gender Information Value Date Recorded Sex Assigned at Not on file 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
--- OUTSIDE RECORDS SUMMARY | 2024-09-27 09:34 | XMS_ITS | Data Portability ---
Author Organization [place] [facility], Main Office Address [address] [place] [address] Care Team Providers Care Fire Pot Operator Name Role Phone KARLEE ROSEN Primary Care Provider KARLEE ROSEN Referring Provider SANAM LEON Rfid Specialist Assessment Encounter Date Assessment Date Assessment LastModified by Organization Details LastModified Time 05/22/2024 05/22/2024 This note is dictated and transcribed by [employer]. Client Account Specialist variances may occur. Despite proofreading, typographical errors may occur. Occasional wrong-word or 'ajzwb-k-vwte' substitutions may have occurred due to the inherent limitations of voice recording. Read the chart carefully and recognize, using context, where substitutions have occurred. Not available 05/25/2024 09:48:39 05/29/2024 05/29/2024 This note is dictated and transcribed by [employer]. Client Account Specialist variances may occur. Despite proofreading, typographical errors may occur. Occasional wrong-word or 'yekcb-f-hpdd' substitutions may have occurred due to the inherent limitations of voice recording. Read the chart carefully and recognize, using context, where substitutions have occurred. Not available 05/29/2024 16:32:19 06/05/2024 06/05/2024 This note is dictated and transcribed by [employer]. Client Account Specialist variances may occur. Despite proofreading, typographical errors may occur. Occasional wrong-word or 'tonog-t-ehqb' substitutions may have occurred due to the inherent limitations of voice recording. Read the chart carefully and recognize, using context, where substitutions have occurred. Not available 06/05/2024 16:57:14 06/12/2024 06/12/2024 This note is dictated and transcribed by [employer]. Client Account Specialist variances may occur. Despite proofreading, typographical errors may occur. Occasional wrong-word or 'zphxv-a-zzgu' substitutions may have occurred due to the inherent limitations of voice recording. Read the chart carefully and recognize, using context, where substitutions have occurred. Not available 06/26/2024 09:26:38 08/14/2024 08/14/2024 This note is dictated and transcribed by [employer]. Client Account Specialist variances may occur. Despite proofreading, typographical errors may occur. Occasional wrong-word or 'fdcku-e-qxxr' substitutions may have occurred due to the inherent limitations of voice recording. Read the chart carefully and recognize, using context, where substitutions have occurred. Not available 08/15/2024 10:15:50 Plan of Treatment Reminders Order Date Submit Date Provider Last Modified By Organization Details Last Modified Time Details Appointments Establish ed Patient 15 2024 03:00P Andrew Mott DPM Not available Not available Not available Lab None recorded. Referral None recorded. Procedures None recorded. Surgeries None recorded. Imaging None recorded. Medication Orders amoxicill in 875 mg-potass ium clavulana te 125 mg tablet 2024 025 [facility] [address] [place], [address], 06/05/2024 16:58:35 Patient TargetsNo targets recorded. Patient InstructionsNo instructions recorded. Reason for Referral None Reported. Results Created Date Observation Date Name Description Value Unit Range Abnormal Flag Note LastModifiedBy Organization Detail LastModifiedTime 05/01/1905/01/2024 CULTU RE WOUND /TISS UE+GR .STAI N [email or web address] ===== ===== ===== ===== ===== ===== ===== ===== ===== ===== ===== ===== ===== ===== ===== ===== ===== ===== ===== ===== ===== ===== ===== ===== Speci men NO.: [id number] Exam Statu s: Final Proce dure: CULTU RE WOUND /TISS UE+GR .STAI N ===== ===== ===== ===== ===== ===== ===== ===== ===== ===== ===== ===== ===== ===== ===== ===== ===== ===== ===== ===== ===== ===== ===== ===== Iso/R esult : 01 Staph yloco ccus aureu s Iso/R esult : 02 Strep tococ cus agala ctiae (Grou p B) Antim icrob ic/Do se RAMIREZ Syste ramirez Urine Antim icrob ic/Do se RAMIREZ Syste ramirez Urine __ ___ ___ __ ___ ___ Ampic illin >8 MAYKEL Ampic illin <= 2 N/R Cipro floxa tez <=1 S Cipro floxa tez <=1 Dapto mycin <=1 S Dapto mycin <=1 S Eryth romyc in >4 R Eryth romyc in 0.5 I Genta micin <=4 [place] [id number] [place] [id number] 7 Thymi dine- Depen den P Beta- Lacta stacey P B-Hem olyti c Flag N Thymi dine- Depen den P Amp/S ulbac gross <=8/4 Amp/S ulbac gross <=8/4 S Amox/ K Clav <=4/2 Amox/ K Clav <=4/2 S Ceftr iaxon e <=8 N/R Azith romyc in >4 R Clind amyci n >4 N/R Ceftr iaxon e <=8 S Cefaz jesse <=8 Clind amyci n <=0.5 S Levof loxac in <=1 S Cefaz jesse <=8 S Linez olid <=2 S Cefta rolin e <=0.5 S Merop enem <=4 N/R Levof loxac in <=1 S Penic illin <=0.0 3 S Linez olid 4 S Pip/T azo <=4 Merop enem <=4 S Trime th/Bullard lfa <=0.5 /9.5 Penic illin >8 MAYKEL Tetra cycli ne >8 N/R Pip/T azo >8 R Oxaci llin <=0.2 5 Trime th/Bullard lfa <=0.5 /9.5 S Rifam pin <=1 Tetra cycli ne >8 R Nitro furan toin <=32 Oxaci llin 1 S Rifam pin <=1 S Vanco mycin 1 S Nitro furan toin <=32 Not Available [facility] (Lab) [address] [place], [address], 05/05/2024 07:09:32 05/11/19 XR, foot, 3 or more view No observ ation record ed. [email or web address] [facility] [place] [address], [place], [address], 05/11/2024 16:58:20 05/24/19 25 05/24/2024 XR, foot, 3 or more view No observ ation record ed. [email or web address] [facility] [address] [place], [address], 05/24/2024 12:48:38 05/30/19 25 05/18/2024 MRI, foot, w/o contr ast No observ ation record ed. [email or web address] [facility] (Imaging) [address] [place], [address], 05/30/2024 18:13:36 Result Notes None recorded. Problems Name Problem SNOMED Code Status Onset Date Resolution Date Notes Provider Name and Address Organization Details Recorded Time Dystrophia unguium 03244974 Active 2022 Ko Mott DPM [address], [place], [address] , [facility] 3 14:55:01 Foot callus 550929650 Active 2022 Ko Mott DPM [address], [place], [address] , [facility] 5 10:16:06 Diabetic peripheral neuropathy 283391377 Active 2022 Ko Mott DPM [address], [place], [address] , [facility] 3 14:55:26 History of amputation of lesser toe 666739294 Active 2022 Ko Mott DPM [address], [place], [address] , [facility] 3 14:58:21 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 Active 2020 Not Available [facility] 3 03:15:19 Diabetes mellitus 73346021 Active 2016 Not Available [facility] 3 03:15:19 Neuropathi c arthropath y due to type 2 diabetes mellitus 062352684087 Active 2021 Not Available [facility] 3 03:15:19 Hammer toe 275574254 Active 2022 Ko Mott DPM [address], [place], [address] , [facility] 3 16:50:04 History of diabetic foot ulcer 3395039708941 9100 Active 2023 Ko Mott DPM [address], [place], [address] , [facility] 4 15:31:50 Ulcer of left foot due to type 2 diabetes mellitus 4677453899377 9109 Active 2023 Ko Mott DPM [address], [place], [address] , [facility] 4 16:52:27 Peripheral vascular disease 921312579 Active 2023 Ko Mott DPM [address], [place], [address] , [facility] 4 17:13:25 Infective arthritis 794874707 Active 2024 Ko Mott DPM [address], [place], [address] , [facility] 5 09:49:19 Postoperat julienne care Active 2024 Ko Mott DPM [address], [place], [address] , [facility] 5 16:33:42 Problem Notes None recorded. Procedures Surgical History Date Name Laterality Status Provider Name and Address Organization Details Recorded Time 5 Callus Debridement, One completed Ko Mott DPM [address], [place], [address], [facility] 08/14/2024 16:38:26 5 Suture Removal completed Ko Mott DPM [address], [place], [address], [facility] 06/26/2024 09:28:07 5 Wound Care-Podiatry completed Ko Mott DPM [address], [place], [address], [facility] 04/20/2024 12:34:16 4 Wound Care-Podiatry completed Ko Mott DPM [address], [place], [address], [facility] 03/29/2024 14:02:46 4 Wound Care-Podiatry completed Ko Mott DPM [address], [place], [address], [facility] 02/08/2024 13:47:22 4 Nail Debridement completed Ko Mott DPM [address], [place], [address], [employer] [facility] 09/01/2023 10:54:37 4 Nail Debridement completed Ko Mott DPM [address], [place], [address], [facility] 05/31/2023 16:10:17 4 Callus Debridement, One completed Ko Mott DPM [address], [place], [address], [facility] 05/31/2023 16:10:21 3 Nail Debridement completed Ko Mott DPM [address], [place], [address], [facility] 02/22/2023 16:49:40 3 Nail Debridement completed Ko Mott DPM [address], [place], [address], [employer] [facility] 11/02/2022 17:22:51 3 Nail Debridement completed Ko Mott DPM [address], [place], [address], [facility] 07/02/2022 14:54:33 Imaging Results None recorded. Procedure Notes None recorded. Medical Equipment None Reported. Allergies Allergen ID Allergen Name Allergen Category Reaction Reaction Severity Criticality Documentation Date Start Date Code Code System Note Provider Name and Address Organization Details Recorded Time 5884 acetamino phen / hydrocodo ne medicatio n Not available Not available Not available 06/10/2022 65596 2 RxNorm Not Available [facility] 3 03:26:33 5885 Substance with sulfonami de structure and antibacte rial mechanism of action (substanc e) medicatio n Not available Not available Not available 06/10/2022 25764 8003 SNOMED Not Available [facility] 3 03:26:33 Medications Name Sig Start Date Stop Date Status Note LastModified by Organization Details LastModified Time doxycycli ne hyclate 100 mg capsule TAKE 1 CAPSULE BY MOUTH TWICE DAILY 05/08 completed stopped due to nausea Not Available Not Available Not Available paroxetin e 10 mg tablet TAKE 1 TABLET BY MOUTH ONCE DAILY TO BE TAKEN DAILY WITH CYMBALTA 60MG 08/29 completed Not Available Not Available Not Available ammonium lactate 12 % lotion Apply to both feet up to twice daily as needed 08/29 completed Not Available Not Available Not Available atorvasta tin 10 mg tablet TAKE 1 TABLET BY MOUTH ONCE DAILY active Not Available Not Available No t Available aspirin 325 mg tablet Take 1 tablet every day by oral route. 08/29 completed Not Available Not Available Not Available fluconazo le 150 mg tablet TAKE 1 TABLET BY MOUTH ONE DOSE. MAY REPEAT IN 3 DAYS IF NEEDED 08/29 completed Not Available Not Available Not Available citalopra m 10 mg tablet 08/29 completed Not Available Not Available Not Available hydrocodo ne 5 mg-acetam inophen 325 mg tablet Take 1 tablet twice a day by oral route as needed for 5 days. 08/29 completed Not Available Not Available Not Available glipizide ER 10 mg tablet, extended release 24 hr TAKE 1 TABLET BY MOUTH ONCE DAILY WITH BREAKFAS T active Not Available Not Available No t Available meloxicam 15 mg tablet TAKE 1 TABLET BY MOUTH ONCE DAILY active Not Available Not Available No t Available FreeStyle Lancets 28 gauge USE 1 TO CHECK GLUCOSE 4 TIMES DAILY 02/06 completed Not Available Not Available Not Available famotidin e 40 mg tablet TAKE 1 TABLET BY MOUTH ONCE DAILY AT BEDTIME active Not Available Not Available No t Available glipizide ER 5 mg tablet, extended release 24 hr TAKE 1 TABLET BY MOUTH ONCE DAILY WITH BREAKFAS T. PATIENT MUST SCHEDULE FOLLOW UP FOR FURTHER REFILLS 08/29 completed Not Available Not Available Not Available Lantus U-100 Insulin 100 unit/mL subcutane ous solution 08/29 completed Not Available Not Available Not Available ciproflox acin 500 mg tablet 10/04 completed Not Available Not Available Not Available doxycycli ne monohydra te 100 mg tablet Take 1 tablet twice a day by oral route for 7 days. 08/29 completed Not Available Not Available Not Available tramadol 50 mg tablet TAKE 1 TABLET BY MOUTH TWICE DAILY NEEDED active Not Available Not Available No t Available bupropion HCl SR 100 mg tablet,12 hr sustained -release 08/29 completed Not Available Not Available Not Available meloxicam 7.5 mg tablet TAKE 1 TABLET BY MOUTH TWICE DAILY 08/29 completed Not Available Not Available Not Available oxycodone -acetamin ophen 5 mg-325 mg tablet TAKE 1 TABLET BY MOUTH EVERY 8 HOURS NEEDED FOR PAIN 08/29 completed Not Available Not Available Not Available citalopra m 20 mg tablet 08/29 completed Not Available Not Available Not Available benzonata te 100 mg capsule TAKE 1 CAPSULE BY MOUTH THREE TIMES A DAY NEEDED 08/29 completed Not Available Not Available Not Available doxycycli ne monohydra te 100 mg capsule Take 1 capsule twice a day by oral route as directed for 5 days. 08/29 completed Not Available Not Available Not Available paroxetin e 30 mg tablet TAKE 1 TABLET BY MOUTH ONCE DAILY active Not Available Not Available No t Available paroxetin e 20 mg tablet TAKE 1 TABLET BY MOUTH ONCE DAILY 08/29 completed Not Available Not Available Not Available pantopraz ole 40 mg tablet,de layed release TAKE 1 TABLET BY MOUTH ONCE DAILY 08/29 completed Not Available Not Available Not Available metformin 1,000 mg tablet TAKE 1 TABLET BY MOUTH TWICE DAILY WITH MORNING MEAL AND WITH EVENING MEAL active Not Available Not Available No t Available lisinopri l 10 mg tablet TAKE 1 TABLET BY MOUTH ONCE DAILY active Not Available Not Available No t Available gabapenti n 300 mg capsule TAKE 1 CAPSULE BY MOUTH THREE TIMES DAILY active Not Available Not Available No t Available gentamici n 0.1 % topical cream APPLY A SMALL AMOUNT TO THE AFFECTED AREA BY TOPICAL ROUTE DAILY WITH A BULKY DRY DRESSING 08/29 completed Not Available Not Available Not Available mupirocin 2 % topical ointment apply a small amount to the wound daily 08/29 completed Not Available Not Available Not Available oxycodone -acetamin ophen 7.5 mg-325 mg tablet TAKE 1 TABLET BY MOUTH EVERY 4 HOURS NEEDED FOR PAIN (SEVERE 7 10 ON SCALE) 08/29 completed Not Available Not Available Not Available levofloxa tez 750 mg tablet Take 1 tablet every day by oral route for 7 days. 08/29 completed Not Available Not Available Not Available metformin ER 500 mg tablet,ex tended release 24 hr TAKE 2 TABLETS BY MOUTH ONCE DAILY WITH MORNING MEAL AND WITH EVENING MEAL active Not Available Not Available No t Available doxycycli ne hyclate 100 mg tablet TAKE 1 TABLET BY MOUTH TWICE DAILY active Not Available Not Available No t Available amoxicill in 875 mg-potass ium clavulana te 125 mg tablet TAKE 1 TABLET BY MOUTH EVERY 12 HOURS WITH MEALS FOR 7 DAYS active Not Available Not Available No t Available amoxicill in 500 mg-potass ium clavulana te 125 mg tablet TAKE 1 TABLET BY MOUTH EVERY 12 HOURS FOR 10 DAYS active Not Available Not Available No t Available cyclobenz aprine 5 mg tablet TAKE 1 TABLET BY MOUTH TWICE DAILY NEEDED active Not Available Not Available No t Available Ultra Comfort Insulin Syringe 0.5 mL 30 gauge x 08/25 completed Not Available Not Available Not Available Alcohol Prep Pads active Not Available Not Available No t Available duloxetin e 60 mg capsule,d elayed release TAKE 1 CAPSULE BY MOUTH ONCE DAILY active Not Available Not Available No t Available BD Ultra-Fin e Mini Pen Needle 31 gauge x 06/25 USE WITH INSULIN PEN TO INJECT SUBCUTAN EOUSLY TWICE DAILY 05/29 completed Not Available Not Available Not Available pregabali n 100 mg capsule TAKE 1 CAPSULE BY MOUTH TWICE DAILY 08/29 completed Not Available Not Available Not Available pregabali n 150 mg capsule TAKE 1 CAPSULE BY MOUTH TWICE DAILY 08/29 completed Not Available Not Available Not Available aspirin active Not Available Not Avail able Not Available citalopra m 10/04 completed Not Available Not Available Not Available iron 2019 active Not Available Not Available Not Avai lable glipizide 02/06 completed Not Available Not Available Not Available metformin 10/04 completed Not Available Not Available Not Available gabapenti n 10/04 completed Not Available Not Available Not Available pantopraz ole 08/29 completed Not Available Not Available Not Available Lantus U-100 Insulin 08/29 completed Not Available Not Available Not Available FreeStyle Lite Meter kit USE TO CHECK GLUCOSE TWICE DAILY 02/06 completed Not Available Not Available Not Available FreeStyle Lite Strips USE 1 STRIP TO CHECK GLUCOSE TWICE DAILY active Not Available Not Available No t Available metformin ER 1,000 mg 24 hr tablet,ex tended release (gastric reten.) TAKE 1 TABLET BY MOUTH TWICE DAILY 08/29 completed Not Available Not Available Not Available Trulicity 1.5 mg/0.5 mL subcutane ous pen injector INJECT 1.5MG SUBCUTAN EOUSLY WEEKLY 08/29 completed Not Available Not Available Not Available Trulicity 0.75 mg/0.5 mL subcutane ous pen injector INJECT 0.75MG SUBCUTAN EOUSLY ONCE WEEKLY 08/29 completed Not Available Not Available Not Available Basaglisabelle Dee U-100 Insulin 100 unit/mL (3 mL) subcutane ous INJECT 30 UNITS SUBCUTAN EOUSLY TWICE DAILY IN THE MORNING AND IN THE EVENING active Not Available Not Available No t Available TRUEplus Pen Needle 31 gauge x 1/4 USE WITH INSULIN INJECTIO NS TWICE DAILY active Not Available Not Available No t Available OneTouch Ultra2 Meter 05/29 completed Not Available Not Available Not Available OneTouch Delica Plus Lancet 33 gauge active Not Available Not Available Not Available Trulicity 3 mg/0.5 mL subcutane ous pen injector INJECT 3 MG SUBCUTAN EOUSLY EVERY WEEK 02/06 completed Not Available Not Available Not Available Trulicity 4.5 mg/0.5 mL subcutane ous pen injector INJECT 4.5MG SUBCUTAN EOUSLY ONCE WEEKLY active Not Available Not Available No t Available Ozempic 1 mg/dose (4 mg/3 mL) subcutane ous pen injector INJECT 1ML SUBCUTAN EOUSLY EVERY WEEK ON THE SAME DAY active Not Available Not Available No t Available Silver Wound 55 PPM topical gel Apply 1 applicat ion every day by topical route as directed , for left foot wound. 2023 active Not Available Not Available Not Avai lable Paxlovid 300 mg (150 mg x 2)-100 mg tablets in a dose pack TAKE BY ORAL ROUTE 2 TIMES EVERY DAY FOR 5 DAYS PER PACKAGE DIRECTIO NS 08/29 completed Not Available Not Available Not Available Ozempic 0.25 mg or 0.5 mg (2 mg/3 mL) subcutane ous pen injector INJECT 0.5 MG SUBCUTAN EOUSLY ONCE WEEKLY ON THE SAME DAY OF EACH WEEK active Not Available Not Available No t Available OneTouch UltraSoft 2 Lancet 30 gauge 05/29 completed Not Available Not Available Not Available Vitals Date Recorded Body height Body mass index (BMI) Body weight Heart rate Respiratory rate Body temperature Oxygen saturation Oxygen saturation in Arterial blood by Pulse oximetry Systolic blood pressure Diastolic blood pressure Provider Name and Address Organization Details Last Updated DateTime 5 160.02 cm 36.8 kg/m2 56062.2 1 g 70 /min 14 /min 97.8 [degF] 98 % 98 % 120 mm[Hg] 80 mm[Hg] Lexi Shultz [facility] [place] [facility] 5 16:30:07 Date Recorded Body height Body mass index (BMI) Body weight Heart rate Respiratory rate Oxygen saturation Oxygen saturation in Arterial blood by Pulse oximetry Systolic blood pressure Diastolic blood pressure Provider Name and Address Organization Details Last Updated DateTime 5 160.02 cm 36.8 kg/m2 88747.2 1 g 78 /min 14 /min 98 % 98 % 149 mm[Hg] 77 mm[Hg] Fela Xie [facility] [place] [facility] 5 15:52:07 Date Recorded Body height Body mass index (BMI) Body weight Heart rate Respiratory rate Oxygen saturation Oxygen saturation in Arterial blood by Pulse oximetry Systolic blood pressure Diastolic blood pressure Provider Name and Address Organization Details Last Updated DateTime 5 160.02 cm 36.8 kg/m2 75405.2 1 g 81 /min 14 /min 98 % 98 % 142 mm[Hg] 87 mm[Hg] Fela Xie [facility] [place] [facility] 5 16:05:41 Date Recorded Heart rate Respiratory rate Oxygen saturation Oxygen saturation in Arterial blood by Pulse oximetry Systolic blood pressure Diastolic blood pressure Provider Name and Address Organization Details Last Updated DateTime 5 79 /min 14 /min 98 % 98 % 123 mm[Hg] 67 mm[Hg] Fela Xie [employer] 5 17:26:57 Date Recorded Body height Body mass index (BMI) Body weight Heart rate Respiratory rate Oxygen saturation Oxygen saturation in Arterial blood by Pulse oximetry Systolic blood pressure Diastolic blood pressure Provider Name and Address Organization Details Last Updated DateTime 5 160.02 cm 36.8 kg/m2 35783.2 1 g 72 /min 14 /min 98 % 98 % 139 mm[Hg] 62 mm[Hg] Fela WIGGINS [facility] 5 15:57:44 Social History Question Answer Notes LastModified by [employer] Details LastModified Time Tobacco Smoking Status Never Smoker Not Available [facility] 06/10/2022 03:05:25 What Type Of Diet Are You Following? DIABETIC [email or web address] Information not available 03/29/2024 Have You Recently Traveled Abroad? No [id number] Information not available 06/10/2022 Do You Have Any Dietary Restrictions? Yes [email or web address] Information not available 03/29/2024 Sex: Unknown Functional Status Question Answer Note LastModified by [employer] Details LastModified Time What is your exercise level? Occasional [email or web address] Information not available 03/29/2024 Mental Status None recorded. Family History Nothing Reported. Medical History Condition Response STROKE/TIA Y USE OF BLOOD THINNERS Y DIABETES, TYPE Y HYPERTENSION Y Gynecological HistoryNo gynecological history recorded. Obstetrics History GPAL:G 0 P 0 0 0 0 Past Encounters Encounter ID Performer Location Encounter Start Date Encounter Closed Date Diagnosis/Indication Diagnosis SNOMED-CT Code Diagnosis ICD10 Code Diagnosis Note [id number] [facility] [place] [address] [place] [address] 06/27/2020 00:00:00 07/01/2020 09:33:21 [id number] [facility] [place] [address] [place] [address] 07/25/2020 00:00:00 07/28/2020 22:10:02 [id number] [facility] [place] [address] [place] [address] 08/08/2020 00:00:00 08/08/2020 18:32:13 [id number] [facility] [place] [address] [place] [address] 08/15/2020 00:00:00 08/16/2020 09:40:17 [id number] [facility] [place] [address] [place] [address] 10/02/2020 00:00:00 10/03/2020 08:52:36 [id number] [facility] [place] [address] [place] [address] 10/17/2020 00:00:00 10/22/2020 10:57:46 [id number] [facility] [place] [address] [place] [address] 11/07/2020 00:00:00 11/07/2020 14:25:48 [id number] [facility] [place] [address] [place] [address] 11/27/2020 00:00:00 11/28/2020 14:06:03 [id number] [facility] [place] [address] [place] [address] 12/09/2020 00:00:00 12/09/2020 20:08:23 [id number] [facility] [place] [address] [place] [address] 12/23/2020 00:00:00 12/23/2020 15:55:22 [id number] [facility] [place] [address] [place] [address] 12/30/2020 00:00:00 12/31/2020 10:45:19 [id number] [facility] [place] [address] [place] [address] 02/03/2021 00:00:00 02/05/2021 16:32:36 [id number] [facility] [place] [address] [place] [address] 02/20/2021 00:00:00 02/21/2021 09:34:29 [id number] [facility] [place] [address] [place] [address] 03/31/2021 00:00:00 04/01/2021 05:08:44 [id number] [facility] [place] [address] [place] [address] 04/14/2021 00:00:00 04/15/2021 11:39:54 [id number] [facility] [place] [address] [place] [address] 04/28/2021 00:00:00 04/28/2021 15:18:10 [id number] [facility] [place] [address] [place] [address] 05/19/2021 00:00:00 05/20/2021 10:11:39 [id number] [facility] [address] [place] [address] 05/27/2021 00:00:00 05/27/2021 19:37:23 [id number] [facility] [address] [place] [address] 06/03/2021 00:00:00 06/05/2021 11:30:37 [id number] [facility] [address] [place] [address] 06/10/2021 00:00:00 06/10/2021 15:44:11 [id number] [facility] [place] [address] [place] [address] 07/24/2021 00:00:00 07/26/2021 12:38:08 [id number] [facility] [place] [address] [place] [address] 08/25/2021 00:00:00 08/26/2021 13:56:45 [id number] [facility] [place] [address] [place] [address] 09/15/2021 00:00:00 09/16/2021 10:45:07 [id number] [facility] [place] [address] [place] [address] 10/16/2021 00:00:00 10/20/2021 14:23:44 [id number] [facility] [place] [address] [place] [address] 11/27/2021 00:00:00 11/30/2021 14:56:17 [id number] [facility] [place] [address] [place] [address] 12/18/2021 00:00:00 12/18/2021 14:57:46 [id number] [facility] [place] [address] [place] [address] 01/08/2022 00:00:00 01/08/2022 16:16:46 [id number] [facility] [place] [address] [place] [address] 02/05/2022 00:00:00 02/06/2022 10:33:40 [id number] [facility] [address] [place] [address] 02/10/2022 00:00:00 02/10/2022 15:05:23 [id number] [facility] [address] [place] [address] 02/17/2022 00:00:00 02/19/2022 10:14:22 [id number] [facility] [address] [facility] [address] [place] [address] 03/26/2022 00:00:00 03/26/2022 15:38:32 [id number] Ko Mott DPM [facility] [place] [place] [address] [facility] [address] [place] [address] 07/02/2022 14:35:44 07/03/2022 10:51:52 Dystrophia unguium [id number] L60.3 Nails 1 through 10 were debrided with sharp mechanical debridemen t without incident. Nails were debrided and greater than 50% length and thickness where needed. Foot callus 895013376 L8 4 Offloading with diabetic shoes and inserts newContinu e use a pumice stone keep the area from becoming prominentC heck feet daily for wounds infectionF ollow-up in 3 months History of amputation of lesser toe 816449768 Z89.429 bilateral 4th toes Diabetic p eripheral neuropathy 139407858 E11.42 Patient educated on neuropathy , diabetes, diabetic diet, and daily foot exams. Patient is to check feet daily for new wounds, blisters, redness to prevent infection and ulceration s to the feet. Patient will return to clinic in 3 months for diabetic foot workup. [id number] Ko Mott DPM [facility] [place] [address] [facility] [address] [place] [address] 11/02/2022 16:38:18 11/02/2022 17:30:12 Open wound of toe of right foot [id number] 8435930 S91.101A right 2nd toeBetadin e applied to the woundWound care reviewed with the patient dailyfollo w-up 1 week Dystrophia unguium 89754 009 L60.3 Nails 1 through 10 were debrided with sharp mechanical debridemen t without incident. Nails were debrided and greater than 50% length and thickness where needed. [id number] Ko Mott DPM [facility] [place] [address] [facility] [address] [place] [address] 11/09/2022 16:36:48 11/09/2022 17:47:05 Foot ulcer due to type 2 diabetes mellitus 6347875831 100 E11.621 HealedCont inue diabetic shoes and insertsche ck feet daily for new wounds and signs of infectionf ollow-up in [facility] 2 months for diabetic foot care [id number] Ko Mott DPM [facility] [place] [address] [facility] [address] [place] [address] 02/22/2023 15:42:37 02/22/2023 17:15:58 Diabetic peripheral neuropathy 953882709 E11.42 Patient educated on neuropathy , diabetes, diabetic diet, and daily foot exams. Patient is to check feet daily for new wounds, blisters, redness to prevent infection and ulceration s to the feet. Patient will return to clinic in 3 months for diabetic foot workup. Dystrophia unguium 88978 009 L60.3 bilateral great toenails were debrided without incident Hammer toe 315985608 M20 .41 M20.42 continue offloading sleeves to prevent woundRecom mend wide soft toe box style shoeFollow -up in 3 months [id number] Ko Mott DPM [facility] [place] [address] [facility] [address] [place] [address] 05/31/2023 15:25:47 05/31/2023 16:16:01 Diabetic peripheral neuropathy 016237972 E11.42 Patient educated on neuropathy , diabetes, diabetic diet, and daily foot exams. Patient is to check feet daily for new wounds, blisters, redness to prevent infection and ulceration s to the feet. Patient will return to clinic in 3 months for diabetic foot workup. Dystrophia unguium 65736 009 L60.3 bilateral great toenails were debrided without incident History of diabetic foot ulcer 1568296289 0685371 Z86.31 Foot callus 998217248 L8 4 Left footOffloa ding with diabetic shoes and inserts newContinu e use a pumice stone keep the area from becoming prominentC heck feet daily for wounds infectionF ollow-up in 3 months [id number] Ko Mott DPM [facility] [place] [address] [place] [address] 08/30/2023 15:52:24 09/02/2023 12:34:50 Diabetes mellitus 67482921 E11.40 Z89.429 This note is dictated and transcribe d by [employer]. Transcript ion variances may occur. Despite proofreadi ng, typographi tramaine errors may occur. Occasional wrong-word or 'sound-a-l meme' substituti ons may have occurred due to the inherent limitation s of voice recording. Read the chart carefully and recognize, using context, where substituti ons have occurred. Diabetic p eripheral neuropathy 573260236 E11.42 Patient educated on neuropathy , diabetes, diabetic diet, and daily foot exams. Patient is to check feet daily for new wounds, blisters, redness to prevent infection and ulceration s to the feet. Patient will return to clinic in 3 months for diabetic foot workup. Dystrophia unguium 49572 009 L60.3 bilateral great toenails were debrided without incident Hammer toe 442313352 M20 .41 M20.42 continue offloading sleeves to prevent woundRecom mend wide soft toe box style shoeFollow -up in 3 months History of amputation of lesser toe 627324845 Z89.429 bilateral 4th toes Ulcer of toe 134368032 L 97.509 left 2nd plantar PIP [id number] Ko Mott DPM [facility] [place] [address] [place] [address] 01/03/2024 15:55:24 01/05/2024 12:17:30 Ulcer of left foot due to type 2 diabetes mellitus 2005467543 0502957 E11.621 daily wound caremonito r for signs of infection if present seek medical attention immediatel yminimal weight-jimi ring- when walking use Darco shoeRx silver gel for dressingfo llow-up 1 week Dystrophia unguium 89232 009 L60.3 nails debrided without incident Hammer toe 578707389 M20 .41 M20.42 continue offloading sleeves to prevent woundRecom mend wide soft toe box style shoe [id number] Ko Mott DPM [facility] [place] [address] [place] [address] 01/24/2024 16:03:53 01/31/2024 09:46:02 Peripheral vascular disease 327143182 I73.9 ultrasound reviewed normalcont inue supportive diabetic shoe gearfollow -up 2 weeks wound care Ulcer of l eft foot due to type 2 diabetes mellitus 4059031781 8053365 E11.621 daily wound caremonito r for signs of infection if present seek medical attention immediatel yminimal weight-jimi ring- when walking use Darco shoeRx silver gel for dressing-- obtained over-the-c ounterfoll ow-up 1 week [id number] Ko Mott DPM [facility] [place] [address] [place] [address] 02/07/2024 15:25:31 02/08/2024 11:51:06 Ulcer of left foot due to type 2 diabetes mellitus 1714423405 1231316 E11.621 daily wound caredressi ngs orderedmon itor for signs of infection if present seek medical attention immediatel yminimal weight-jimi ring- when walking use Darco shoewound debrided todayfollo w-up 1 week [id number] Ko Mott DPM [facility] [place] [address] [place] [address] 02/21/2024 15:52:13 04/06/2024 15:49:27 Ulcer of left foot due to type 2 diabetes mellitus 0409346321 9443360 E11.621 daily wound caredressi ngs appliedmon itor for signs of infection if present seek medical attention immediatel ynot using Darco shoerecomm end rocker bottom shoe if fails will need to apply total contact cast follow-up 2 weeks [id number] [facility] [place] [address] [place] [address] 03/13/2024 15:18:04 04/06/2024 16:48:40 Ulcer of left foot due to type 2 diabetes mellitus 4082363860 5407932 E11.621 daily wound carerefer to wound care for total contact casting versus wound VAC therapydre ssings appliedmon itor for signs of infection if present seek medical attention immediatel ynot using Darco shoerecomm end rocker bottom shoe Is not wearingfol low-up 2 weeks [id number] [facility] [address] [place] [address] 03/29/2024 12:39:34 03/29/2024 15:31:51 Ulcer of left foot due to type 2 diabetes mellitus 3231203253 9489937 E11.621 daily wound careorder wound VAC therapydre ssings appliedmon itor for signs of infection if present seek medical attention immediatel ynot using Darco shoerecomm end rocker bottom shoefollow -up 2-3weeks [id number] [facility] [address] [place] [address] 04/19/2024 12:13:15 04/19/2024 15:15:11 Ulcer of left foot due to type 2 diabetes mellitus 0243339700 1650204 E11.621 daily wound careDC wound VAC per patient requestdre ssings applied- silver collagenre commend offloading at all timesmonit or for signs of infection if present seek medical attention immediatel ynot using Darco shoepatien t to obtain medical clearance for 4th metatarsal osteotomy of the left foot for offloading follow-up 2-3weeks History of amputation of lesser toe 377161368 Z89.429 bilateral 4th toes [id number] [facility] [place] [address] [place] [address] 05/01/2024 14:02:07 05/05/2024 13:37:21 Ulcer of left foot due to type 2 diabetes mellitus 7923674374 3089390 E11.621 daily wound caredressi ngs applied- Betadine wet-to-dry recommend offloading at all timesmonit or for signs of infection if present seek medical attention immediatel ynot using Darco shoepatien t to obtain medical clearance still pending- plan 4th metatarsal osteotomy of the left foot for offloading follow-up 1 week Ulcer of r ight foot due to type 2 diabetes mellitus 3395561638 2317819 E11.621 right 2nd toeBetadin e wet-to-dry dressings dailyOfflo ading at all times, continue postop shoe which she presents with todaypatie nt states she has enough dressings from previous woundsFoll ow-up 1 week Cellulitis of right foot 6325556972 1684055 L03.115 right footcultur es todayfollo w-up on week Diabetes mellitus 489615 09 E11.40 Z89.429 tight control of diabetes for optimal wound healing [id number] Ko Mott DPM [facility] [place] [address] [place] [address] 05/08/2024 16:46:04 05/12/2024 07:42:18 Ulcer of left foot due to type 2 diabetes mellitus 2831393715 6706381 E11.621 daily wound caredressi ngs applied- Betadine wet-to-dry recommend offloading at all timesmonit or for signs of infection if present seek medical attention immediatel ynot using Darco shoepatien t to obtain medical clearance still pending- plan 4th metatarsal osteotomy of the left foot for offloading follow-up 1 week Ulcer of r ight foot due to type 2 diabetes mellitus 4540347923 9364092 E11.621 right 2nd toeBetadin e wet-to-dry dressings dailyOfflo ading at all times, continue postop shoe which she presents with todaypatie nt states she has enough dressings from previous woundsFoll ow-up 1 week Cellulitis of right foot 0805003459 9249890 L03.115 right foot- 2nd toeculture s todayfollo w-up on week [id number] Ko Mott DPM [facility] [place] [address] [place] [address] 05/22/2024 16:10:08 05/30/2024 14:46:17 Ulcer of left foot due to type 2 diabetes mellitus 0519794594 9410222 E11.621 daily wound caredressi ngs applied- Betadine wet-to-dry recommend offloading at all timesmonit or for signs of infection if present seek medical attention immediatel ynot using Darco shoepatien t to obtain medical clearance still pending- plan 4th metatarsal osteotomy of the left foot for offloading follow-up 1 week Ulcer of r ight foot due to type 2 diabetes mellitus 2939426930 4658620 E11.621 right 2nd toeBetadin e wet-to-dry dressings dailyOfflo ading at all times, continue postop shoe which she presents with todaypatie nt states she has enough dressings from previous woundsMRI reviewed consistent with osteomyeli tis septic arthritis right 2nd toeFollow- up 1 week Infective arthritis 3962 24838 M00.9 right 2nd proximal interphala ngeal jointpatie nt to report in the emergency room for admission treatment care today [id number] Ko Mott DPM [facility] [place] [address] [place] [address] 05/29/2024 15:37:13 05/30/2024 12:54:20 Postoperative care 959794066 Z48.89 right foot 2nd toe amputation -- ulcer resolved right foot secondary to toe amputation left foot 4th metatarsal osteotomy with wound debridemen tkeep incisions clean and dryContinu e postop shoes with minimal walkingmon itor for signs of infection at present seek medical attention immediatel yFollow-up 1 week Ulcer of l eft foot due to type 2 diabetes mellitus 0441636056 6316508 E11.621 healedfini sh Augmentin [id number] oK Mott DPM [facility] [place] [address] [place] [address] 06/05/2024 15:53:42 06/07/2024 12:03:55 Postoperative care 775583262 Z48.89 right foot 2nd toe amputation -- ulcer resolved right foot secondary to toe amputation left foot 4th metatarsal osteotomy with wound debridemen tkeep incisions clean and dryContinu e postop shoes with minimal walkingmon itor for signs of infection at present seek medical attention immediatel yFollow-up 1 week [id number] Ko Mott DPM [facility] [place] [address] [place] [address] 06/13/2024 14:42:59 06/27/2024 11:51:07 Postoperative care 353836798 Z48.89 right foot 2nd toe amputation -- ulcer resolved right foot secondary to toe amputation left foot 4th metatarsal osteotomy with wound debridemen tkeep incisions clean and drysutures removedtra nsition to diabetic shoes and insolesmon itor for signs of infection at present seek medical attention immediatel yFollow-up 2 months [id number] Ko Mott DPM [facility] [place] [address] [place] [address] 08/14/2024 15:50:02 08/15/2024 12:29:08 Foot callus 272216497 L84 right footOffloa ding with diabetic shoes and inserts newContinu e use a pumice stone keep the area from becoming prominentC heck feet daily for wounds infectionF ollow-up in 2 months Postoperative care 62855 9007 Z48.89 right foot 2nd toe amputation -- ulcer resolved right foot secondary to toe amputation left foot 4th metatarsal osteotomy with wound debridemen t- wound resovledke ep incisions clean and drywell healed incisions without infectionc ont diabetic shoes and insolesmon itor for signs of infection at present seek medical attention immediatel yFollow-up 2 months Health Concerns Section Related Observation LastModified by Organization Amina talbert LastModified Time None Recorded Concern Status LastModified by Organization Details LastModified Time None Recorded Advance Directives Directive None Recorded Payers Insurance Date Sequence Insurance Name Policy Number Policy Barboza Covered Member ID Barboza Member ID Guarantor Name 08/11/2024 1 [facility] - DOS ON OR AFTER 20 (MEDICAID REPLACEMENT - HMO) Sher Billings [id number] Sher Billings Notes Date Note Type Note Provider Name and Address Organization Details Recorded Time 05/22/2024 text/html . Patient is a 63-year-old female she returns for follow-up on a wound to the right 2nd toe and plantar left foot. Patient had a MRI she is here to review the MRI and she was found to have a septic joint of the right 2nd toe with osteomyelitis. Due to the findings they were discussed with the patient and the patient was referred to the emergency room for admission and further care. Patient denies any other complaints. Ko Mott DPM [address], [place], [address], [facility] 05/25/2024 09:49:53 05/29/2024 text/html . Patient is a 63-year-old female who returns the office for follow-up on 2nd toe amputation to the right foot and osteotomy of the 4th metatarsal with plantar wound. Patient at this point has completely healed the wound to the plantar left foot. Patient has healing incisions to both foot. Patient currently is on Augmentin she has approximately 5 days left which I told patient to continue to take this medication as well as keep the areas clean and dry. Patient denies any significant pain she has some mild discomfort which she is utilizing tramadol before bed and she states this helps with her pain and her ability to sleep. Patient denies any other complaints. Ko Mott DPM [address], [place], [address], [facility] 05/29/2024 16:34:28 06/05/2024 text/html . Patient is a 63-year-old female who returns the office for follow-up on postop recovery she is doing well she still has a small wound that is healing secondary to the 2nd toe amp she has finished her antibiotics I did recommend that she continue those antibiotics to prevent any deep infection she denies any redness or swelling. Patient denies any fever, chills, nausea or vomiting. Ko Mott DPM [address], [place], [address], [facility] 06/05/2024 17:00:09 06/12/2024 text/html . Patient is a 64-year-old female she follows up for follow-up on amputation of the toe with osteotomy of the metatarsal for offloading. Patient is doing very well she has healed all wounds and incisions. Patient denies any signs of infection. Patient denies any other complaints. Ko Mott DPM [address], [place], [address], [facility] 06/26/2024 09:28:58 08/14/2024 text/html . Patient is a 64-year-old female she follows up for postsurgical follow-up she is doing well she has well-healed incisions she has no further open wounds. Patient does have a new callus formation to the plantar right foot she states that it is not painful she has had previous wounds in this area she does present with older insoles in her diabetic shoes I did explain that she needs to wear her newer insoles which she just had made she states that she will she is to monitor this area closely if it continues to create callus or become red or bruise she is to report immediately back for new pressure offloading where she could result with a new wound. Ko Mott DPM [address], [place], [address], [facility] 08/15/2024 10:17:38 OBGyn Episode No OBEpisode recorded.
--- OUTSIDE RECORDS SUMMARY | 2024-09-27 09:34 | XMS_ITS | CONTINUITY OF CARE DOCUMENT ---
Author Name marge bird Address Unknown Organization [facility] Address [address] [place] [address] Phone [phone] Care Team Providers Care Coating And Baking Operator Name Role Phone Shai Melgar MD Unavailable [phone] Shai Melgar MD Unavailable [phone] INSURANCE PROVIDERS Payer name Policy type / Coverage type Jamey red libertarian [place] [employer] MEDICAID (2) Medicaid [id number]
[2024-09-27 09:38] LABS: MALB Creatinine Ratio 10.3 mg/g (0-30)
[2024-09-27 11:23] LABS: Alanine Aminotransferase 23 U/L (6-35); Albumin Level 3.8 g/dL (3.5-5.1); Alkaline Phosphatase 109 U/L (38-126); Anion Gap 6 mmol/L (4-12); Aspartate Amino Transferase 30 U/L (14-36); Bilirubin,Total 0.5 mg/dL (0.2-1.3); Blood Urea Nitrogen 11 mg/dL (7-17); Calcium 8.8 mg/dL (8.4-10.2); Carbon Dioxide 27 mmol/L (22-30); Chloride 103 mmol/L (98-107); Cholesterol 146 mg/dL (0-200); Estimated Glomerular Filt Rate > 60; Glucose 154 mg/dL (65-110); HDL Direct 44 mg/dL; LDL Cholesterol Calculated 80 mg/dL (<130); Osmolality Calculated 284 mOsm/kg (285-295); Potassium 4.6 mmol/L (3.4-5.0); Sodium 136 mmol/L (137-145); Total Protein 6.2 g/dL (6.3-8.2); Triglycerides 112 mg/dL (<150)
[2024-09-27 11:41] LABS: Free T3 2.83 pg/mL (2.18-3.98)
[2024-09-28 17:13] LABS: T4 Thyroxine 6.3 mcg/dL (5.1-11.9)
[2024-09-29 10:53] LABS: Thyroid Peroxidase Antibodies. <1 IU/mL (<9)
== END 2024-09-27 08:58 | disposition home or self-care (01) ==
PROVIDERS: PCP Physician Assistant; Visit Provider Nurse Practitioner Family
DX: E11.65 Type 2 diabetes mellitus with hyperglycemia (principal); E78.5 Hyperlipidemia, unspecified; I10 Essential (primary) hypertension; R53.83 Other fatigue
CPT/HCPCS: 36415; 80053; 80061; 81001; 82043; 82306; 82607; 83036; 84436; 84443; 84481; 85025; 86376

== ENCOUNTER 2024-10-12 10:49 | Outpatient (CLI) | payer OTHER, SELFPAY ==
--- OUTSIDE RECORDS SUMMARY | 2024-10-12 10:53 | XMS_ITS | Encounter Summary ---
Author Organization [facility] Address [facility] [place] [address] Care Team Providers Care Health And Safety Specialist Name Role Phone Jennifer Ng Primary Care Provider [phone] Encounter Details Date Type Department Care Team (Late st Contact Info) Description 02/01/2014 Abstract [facility] CONVERSION [address] [place] [address] , Generic ConversionMD Social History Tobacco Use [...] on filedocumented in this encounter Care Teams Health And Safety Specialist Relationship Specialty Start Date End Date Jennifer Ng PA [address] [place] [address] PCP - General PHYSICIAN PRODUCTION SUPERVISOR OFF SHIFT 03/27/19 documented as of this encounter
--- OUTSIDE RECORDS SUMMARY | 2024-10-12 10:53 | XMS_ITS | Clinical Summary ---
Author Organization [facility] Address [address] [place] [address] Care Team Providers Care Cardiology Technologist Name Role Phone Jennifer Ng Primary Care Provider [phone] Allergies Active Allergy Reactions Criticality Noted Date [...] 8:43 AM CDT Height 160 cm (5' 3) 12/19/2019 8:43 AM CDT Body Mass Index [...] 06/25/1991 Cervical Cancer Screening with HPV 06/25/1991 Pneumococcal Vaccine: 50+ Ye ars (1 of 1 - PCV) 06/25/2011 Zoster Vaccines (1 of 2) 06/25/2011 Mammogram Screening 04/21/2021 04/21/2019 COVID-19 Vaccine ( - 2023-2 5 season) 2023 RSV Immunization or 60+ Years (1 - [...] ZANE MARISSA DIGI Routine 04/21/2019 10:45 AM OUTREACH CLINICIAN Visit for screening mammogram from Last 3 Months or Most Recently Relevant to Health Maintenance Results * MG SCREENING W ZANE MARISSA DIGI (04/21/2019 10:45 AM OUTREACH CLINICIAN) Anatomical Region Laterality Modality Breast Bilateral Mammography 04/23/2019 1:54 PM OUTREACH CLINICIAN Impressions 04/23/2019 1:58 PM OUTREACH CLINICIAN IMPRESSION: No interval features to suggest malignancy. In the absence of clinical symptoms, return for annual screening due in one year. RECOMMENDATION: Routine Screening, BILATERAL in 1 year ASSESSMENT: ACR BI-RADS 2 - BENIGN FINDING(S) Interpreted By: Norah Encarnacion MD, 04/23/2019 1:54 PM Narrative 04/23/2019 1:58 PM OUTREACH CLINICIAN EXAMINATION: BILATERAL SCREENING MAMMOGRAPHY CLINICAL INDICATION: 57 [...] Relevant to Health Maintenance Insurance Care Teams Cardiology Technologist Relationship Specialty Start Date End Date Jennifer Ng PA [address] [place] [address] PCP - General PHYSICIAN INSPECTOR FUEL HOSE 03/27/19
--- OUTSIDE RECORDS SUMMARY | 2024-10-12 10:54 | XMS_ITS | Encounter Summary ---
Author Organization [facility] Address [address] [place] [address] Phone Care Team Providers Care Wool Supplier Name Role Phone Jennifer Ng Primary Care Provider + Reason for Visit * Reason Comments Medication Refill Encounter Details Date Type Department Care Team ([facility] Contact Info) Description 07/06/2024 [facility] [address] [place] [address] Mery Martinez, HIGH SCHOOL ART TEACHER, FEED GRINDER [address] [place] [address] Medication Refill Social History Tobacco Use Types Packs/Day Years Used Date Smoking Tobacco: Never Assessed Comments Unknown Sex and Gender Information Value Date Recorded Sex Assigned at Not on file Legal Sex Female 12:49 PM CLAIM BENEFIT SPECIALIST Gender Identity Not on file Sexual Orientation Not on file documented as of this encounter Plan of Treatment Not on file documented as of this encounter Visit Diagnoses Not on filedocumented in this encounter Care Teams Wool Supplier Relationship Specialty Start Date End Date Jennifer Ng PAC [address] [address] PCP - General Advanced Practice Nurse 03/30/24 documented as of this encounter
--- OUTSIDE RECORDS SUMMARY | 2024-10-12 10:54 | XMS_ITS | Encounter Summary ---
Author Organization [facility] Address [address] [place] [address] Phone Care Team Providers Care Cloth Desizing Range Tender Name Role Phone Jennifer Ng Primary Care Provider + Reason for Visit * Reason Comments Medication Refill Encounter Details Date Type Department Care Team (Late st Contact Info) Description 07/11/2024 [facility] [address] [place] [address] Mery Martinez, LAND TITLE EXAMINER, QUALITY IMPROVEMENT SPECIALIST [address] [place] [address] Medication Refill Social History Tobacco Use Types Packs/Day Years Used Date Smoking Tobacco: Never Assessed Comments Unknown Sex and Gender Information Value Date Recorded Sex Assigned at Not on file Legal Sex Female 12:49 PM CLINICAL TECHNOLOGIST Gender Identity Not on file Sexual Orientation Not on file documented as of this encounter Plan of Treatment Not on file documented as of this encounter Visit Diagnoses Not on filedocumented in this encounter Care Teams Cloth Desizing Range Tender Relationship Specialty Start Date End Date Jennifer Ng PAC [address] [address] PCP - General Advanced Practice Nurse 03/30/24 documented as of this encounter
--- OUTSIDE RECORDS SUMMARY | 2024-10-12 10:54 | XMS_ITS | Data Portability ---
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. Recreational Counselor variances may occur. Despite proofreading, typographical errors may occur. Occasional wrong-word or 'jbffb-h-gadl' substitutions may have occurred due to the inherent limitations of voice recording. Read the chart carefully and recognize, using context, where substitutions have occurred. [email or web address] Not available 05/25/2024 09:48:39 05/29/2024 05/29/2024 This note is dictated and transcribed by [employer]. Recreational Counselor variances may occur. Despite proofreading, typographical errors may occur. Occasional wrong-word or 'hgyls-t-ocsi' substitutions may have occurred due to the inherent limitations of voice recording. Read the chart carefully and recognize, using context, where substitutions have occurred. Not available 05/29/2024 16:32:19 06/05/2024 06/05/2024 This note is dictated and transcribed by [employer]. Recreational Counselor variances may occur. Despite proofreading, typographical errors may occur. Occasional wrong-word or 'ibarv-l-idbx' substitutions may have occurred due to the inherent limitations of voice recording. Read the chart carefully and recognize, using context, where substitutions have occurred. Not available 06/05/2024 16:57:14 06/12/2024 06/12/2024 This note is dictated and transcribed by [employer]. Recreational Counselor variances may occur. Despite proofreading, typographical errors may occur. Occasional wrong-word or 'ldtob-m-exre' substitutions may have occurred due to the inherent limitations of voice recording. Read the chart carefully and recognize, using context, where substitutions have occurred. Not available 06/26/2024 09:26:38 08/14/2024 08/14/2024 This note is dictated and transcribed by [employer]. Recreational Counselor variances may occur. Despite proofreading, typographical errors may occur. Occasional wrong-word or 'fuymb-r-oufo' substitutions may have occurred due to the [...] clavulana te 125 mg tablet 2024 025 [facility] [address] [place], [address], 06/05/2024 16:58:35 Patient TargetsNo targets recorded. Patient [...] ===== ===== ===== ===== Speci men NO.: [id number] Exam Statu s: Final Proce dure: [...] I Genta micin <=4 [place] [id number] 3006 [place] [id number] 7 Thymi dine- Depen den P Beta- [...] S Nitro furan toin <=32 Not Available [facility] (Lab) [address] [place], [address], 05/05/2024 07:09:32 05/11/19 25 XR, foot, 3 or more view No observ ation record ed. [email or web address] [facility] [place] [address], [place], [address], 05/11/2024 16:58:20 05/24/19 25 05/24/2024 XR, foot, 3 or more view No observ ation record ed. [email or web address] [facility] [address] [place], [address], 05/24/2024 12:48:38 05/30/19 25 05/18/2024 MRI, foot, w/o contr ast No observ ation record ed. [email or web address] [facility] (Im[facility] [address] [place], [address], 05/30/2024 18:13:36 Result Notes None recorded. Problems Name Problem SNOMED Code Status Onset Date Resolution Date Notes Provider Name and Address Organization Details Recorded Time Dystrophbrenda unguium 65737002 Active 2022 Ko Mott DPM [address], [place], [address] , [facility] 3 14:55:01 Foot callus 290746797 Active 2022 Ko Mott DPM [address], [address], [place], [address] , [facility] 5 10:16:06 Diabetic peripheral neuropathy 049553150 Active 2022 Ko Mott DPM [address], [address], [place], [address] , [facility] 3 14:55:26 History of amputation of lesser toe 841101200 Active 2022 Ko Mott DPM [address], [place], [address] , [facility] 3 14:58:21 Bacterial arthritis 30498478 Active 2020 Not Available [facility] 3 03:15:19 Diabetes mellitus 66965325 Active 2016 Not Available [facility] 3 03:15:19 Neuropathi c arthropath y due to type 2 diabetes mellitus 941467508274 Active 2021 Not Available [facility] 3 03:15:19 Hammer toe 461284113 Active 2022 Ko Mott DPM [address], [address], [place], [address] , [facility] 3 16:50:04 History of diabetic foot ulcer 3650568367965 9100 Active 2023 Ko Mott DPM [address], [address], [place], [address] , [facility] 4 15:31:50 Ulcer of left foot due to type 2 diabetes mellitus 4622401911340 9109 Active 2023 Ko Mott DPM [address], [address], [place], [address] , [employer] 4 16:52:27 Peripheral vascular disease 008807576 Active 2023 Ko Mott DPM [address], [address], [place], [address] , [facility] 4 17:13:25 Infective arthritis 581628464 Active 2024 Ko Mott DPM [address], [address], [place], [address] , [facility] 5 09:49:19 Postoperat julienne care Active 2024 Ko Mott DPM [address], [address], [place], [address] , [facility] 5 16:33:42 Problem Notes None recorded. Procedures Surgical History Date Name Laterality Status Provider Name and Address Organization Details Recorded Time 5 Callus Debridement, One completed Ko Mott DPM [address], [address], [place], [address], [facility] 08/14/2024 16:38:26 5 Suture Removal completed Ko Mott DPM [address], [address], [place], [address], [facility] 06/26/2024 09:28:07 5 Wound Care-Podiatry completed Ko Mott DPM [address], [address], [place], [address], [facility] 04/20/2024 12:34:16 4 Wound Care-Podiatry completed Ko Mott DPM [address], [address], [place], [address], [facility] 03/29/2024 14:02:46 4 Wound Care-Podiatry completed Ko Mott DPM [address], [address], [place], [address], [facility] 02/08/2024 13:47:22 4 Nail Debridement completed Ko Mott DPM [address], [place], [address], [facility] 09/01/2023 10:54:37 4 Nail Debridement completed Ko Mott DPM [address], [place], [address], [facility] 05/31/2023 16:10:17 4 Callus Debridement, One completed Ko Mott DPM [address], [place], [address], [facility] 05/31/2023 16:10:21 3 Nail Debridement completed oK Mott DPM [address], [address], [place], [address], [facility] 02/22/2023 16:49:40 3 Nail Debridement completed Ko Mott DPM [address], [place], [address], [facility] 11/02/2022 17:22:51 3 Nail Debridement completed Ko Mott DPM [address], [place], [address], [facility] 07/02/2022 14:54:33 Imaging Results None recorded. Procedure Notes None recorded. Medical Equipment None Reported. Allergies Allergen ID Allergen Name Allergen Category Reaction Reaction Severity Criticality Documentation Date Start Date Code Code System Note Provider Name and Address Organization Details Recorded Time 5884 acetamino phen / hydrocodo ne medicatio n Not available Not available Not available 06/10/2022 03476 2 RxNorm Not Available [facility] 3 03:26:33 5885 Substance with sulfonami de structure and antibacte rial mechanism of action (substanc e) medicatio n Not available Not available Not available 06/10/2022 75279 8003 SNOMED Not Available [facility] 3 03:26:33 Medications Name Sig Start Date [...] completed Not Available Not Available Not Available Basaglar KwikPen U-100 Insulin 100 unit/mL (3 mL) subcutane [...] DAY FOR 5 DAYS PER PACKAGE DIRECTIO ANTONI 08/29 completed Not Available Not Available Not [...] in Arterial blood by Pulse oximetry Systolic And Diastolic Provider Name and Address Organization Details Last Updated DateTime 5 160.02 cm 36.8 kg/m2 89126.2 1 g 70 /min 14 /min 97.8 [degF] 98 % 98 % 120/80 mm[Hg] Lexi Shultz [facility] [employer] [facility] 5 16:30:07 Date Recorded Body height Body mass index (BMI) Body weight Heart rate Respiratory rate Oxygen saturation Oxygen saturation in Arterial blood by Pulse oximetry Systolic And Diastolic Provider Name and Address Organization Details Last Updated DateTime 5 160.02 cm 36.8 kg/m2 03334.2 1 g 78 /min 14 /min 98 % 98 % 149/77 mm[Hg] Fela Xie [facility] [employer] [facility] 5 15:52:07 Date Recorded Body height Body mass index (BMI) Body weight Heart rate Respiratory rate Oxygen saturation Oxygen saturation in Arterial blood by Pulse oximetry Systolic And Diastolic Provider Name and Address Organization Details Last Updated DateTime 5 160.02 cm 36.8 kg/m2 04195.2 1 g 81 /min 14 /min 98 % 98 % 142/87 mm[Hg] Fela Xie [facility] [employer] [facility] 5 16:05:41 Date Recorded Heart rate Respiratory rate Oxygen saturation Oxygen saturation in Arterial blood by Pulse oximetry Systolic And Diastolic Provider Name and Address Organization Details Last Updated DateTime 5 79 /min 14 /min 98 % 98 % 123/67 mm[Hg] Fela WIGGINS [employer] [facility] [employer] 5 17:26:57 Date Recorded Body height Body mass index (BMI) Body weight Heart rate Respiratory rate Oxygen saturation Oxygen saturation in Arterial blood by Pulse oximetry Systolic And Diastolic Provider Name and Address Organization Details Last Updated DateTime 160.02 cm 36.8 kg/m2 46652.2 1 g 72 /min 14 /min 98 % 98 % 139/62 mm[Hg] Fela Xie [place] [employer] [facility] [employer] 5 15:57:44 Social History Question Answer Notes LastModified by [employer] Details LastModified Time Tobacco Smoking Status Never Smoker Not Available [facility] 06/10/2022 03:05:25 What Type Of Diet Are You Following? DIABETIC [email or web address] Information not available 03/29/2024 Have You Recently Traveled Abroad? No [id number] Information not available 06/10/2022 Do You Have Any Dietary Restrictions? Yes Information not available 03/29/2024 Sex: Unknown Functional Status Question Answer Note LastModified by [employer] Details LastModified Time What is your exercise level? Occasional [email or web address] Information not available 03/29/2024 Mental Status None recorded. Family History Nothing Reported. Medical History Condition Response USE OF BLOOD THINNERS Y DIABETES, TYPE Y HYPERTENSION Y STROKE/TIA Y Gynecological HistoryNo gynecological history recorded. Obstetrics History GPAL:G 0 P 0 0 0 0 Past Encounters Encounter ID Performer Location Encounter Start Date Encounter Closed Date Diagnosis/Indication Diagnosis SNOMED-CT Code Diagnosis ICD10 Code Diagnosis Note [id number] [facility] [place] [address] [place] [address] 06/27/2020 00:00:00 07/01/2020 09:33:21 [id number] [facility] [place] [address] [place] [address] 07/25/2020 00:00:00 07/28/2020 22:10:02 [id number] [facility] [place] [address] [place] [address] 08/08/2020 00:00:00 08/08/2020 18:32:13 [id number] [facility] [place] [address] [place] [address] 08/15/2020 00:00:00 08/16/2020 09:40:17 [id number] [facility] [place] [address] [place] [address] 10/02/2020 00:00:00 10/03/2020 08:52:36 [id number] [facility] [place] [address] [place] [address] 10/17/2020 00:00:00 10/22/2020 10:57:46 [id number] [facility] [place] [address] [place] [address] 11/07/2020 00:00:00 11/07/2020 14:25:48 [id number] [facility] [place] [address] [place] [address] 11/27/2020 00:00:00 11/28/2020 14:06:03 [id number] [facility] [place] [address] [place] [address] 12/09/2020 00:00:00 12/09/2020 20:08:23 [id number] [facility] [place] [address] [place] [address] 12/23/2020 00:00:00 12/23/2020 15:55:22 [id number] [facility] [place] [address] [place] [address] 12/30/2020 00:00:00 12/31/2020 10:45:19 [id number] [facility] [place] [address] [place] [address] 02/03/2021 00:00:00 02/05/2021 16:32:36 [id number] [facility] [place] [address] [place] [address] 02/20/2021 00:00:00 02/21/2021 09:34:29 [id number] [facility] [place] [address] [place] [address] 03/31/2021 00:00:00 04/01/2021 05:08:44 [id number] [facility] [place] [address] [place] [address] 04/14/2021 00:00:00 04/15/2021 11:39:54 [id number] [facility] [place] [address] [place] [address] 04/28/2021 00:00:00 04/28/2021 15:18:10 [id number] [facility] [place] [address] [place] [address] 05/19/2021 00:00:00 05/20/2021 10:11:39 [id number] [facility] [address] [place] [address] 05/27/2021 00:00:00 05/27/2021 19:37:23 [id number] [facility] [address] [place] [address] 06/03/2021 00:00:00 06/05/2021 11:30:37 [id number] [facility] [address] [place] [address] 06/10/2021 00:00:00 06/10/2021 15:44:11 [id number] [facility] [place] [address] [place] [address] 07/24/2021 00:00:00 07/26/2021 12:38:08 [id number] [facility] [place] [address] [place] [address] 08/25/2021 00:00:00 08/26/2021 13:56:45 [id number] [facility] [place] [address] [place] [address] 09/15/2021 00:00:00 09/16/2021 10:45:07 [id number] [facility] [place] [address] [place] [address] 10/16/2021 00:00:00 10/20/2021 14:23:44 [id number] [facility] [place] [address] [place] [address] 11/27/2021 00:00:00 11/30/2021 14:56:17 [id number] [facility] [place] [address] [place] [address] 12/18/2021 00:00:00 12/18/2021 14:57:46 [id number] [facility] [place] [address] [place] [address] 01/08/2022 00:00:00 01/08/2022 16:16:46 [id number] [facility] [place] [address] [place] [address] 02/05/2022 00:00:00 02/06/2022 10:33:40 [id number] [facility] [address] [place] [address] 02/10/2022 00:00:00 02/10/2022 15:05:23 [id number] [facility] [address] [place] [address] 02/17/2022 00:00:00 02/19/2022 10:14:22 [id number] [facility] [place] [address] [place] [address] 03/26/2022 00:00:00 03/26/2022 15:38:32 [id number] Ko Mott DPM [facility] [place] [address] [place] [address] 07/02/2022 14:35:44 07/03/2022 10:51:52 Dystrophia unguium 68874310 L60.3 Nails 1 through 10 were debrided with sharp mechanical debridemen t without incident. Nails were debrided and greater than 50% length and thickness where needed. Foot callus 885194683 L8 4 Offloading with diabetic shoes and inserts newContinu e use a pumice stone keep the area from becoming prominentC heck feet daily for wounds infectionF ollow-up in 3 months History of amputation of lesser toe 288097612 Z89.429 bilateral 4th toes Diabetic p eripheral neuropathy 639876887 E11.42 Patient educated on neuropathy , diabetes, diabetic diet, and daily foot exams. Patient is to check feet daily for new wounds, blisters, redness to prevent infection and ulceration s to the feet. Patient will return to clinic in 3 months for diabetic foot workup. [id number] Ko Mott DPM [facility] [place] [address] [place] [address] 11/02/2022 16:38:18 11/02/2022 17:30:12 Open wound of toe of right foot 0518250242 0821685 S91.101A right 2nd toeBetadin e applied to the woundWound care reviewed with the patient dailyfollo w-up 1 week Dystrophia unguium 81092 009 L60.3 Nails 1 through 10 were debrided with sharp mechanical debridemen t without incident. Nails were debrided and greater than 50% length and thickness where needed. [id number] Ko Mott DPM [facility] [place] [address] [facility] [address] [place] [address] 11/09/2022 16:36:48 11/09/2022 17:47:05 Foot ulcer due to type 2 diabetes mellitus 6552858239 100 E11.621 HealedCont inue diabetic shoes and insertsche ck feet daily for new wounds and signs of infectionf ollow-up in [facility] 2 months for diabetic foot care [id number] Ko Mott DPM [facility] [place] [address] [place] [address] 02/22/2023 15:42:37 02/22/2023 17:15:58 Diabetic peripheral neuropathy 745449010 E11.42 Patient educated on neuropathy , diabetes, diabetic diet, and daily foot exams. Patient is to check feet daily for new wounds, blisters, redness to prevent infection and ulceration s to the feet. Patient will return to clinic in 3 months for diabetic foot workup. Dystrophia unguium 36733 009 L60.3 bilateral great toenails were debrided without incident Hammer toe 149169288 M20 .41 M20.42 continue offloading sleeves to prevent woundRecom mend wide soft toe box style shoeFollow -up in 3 months [id number] Ko Mott DPM [facility] [place] [address] [place] [address] 05/31/2023 15:25:47 05/31/2023 16:16:01 Diabetic peripheral neuropathy 701744408 E11.42 Patient educated on neuropathy , diabetes, diabetic diet, and daily foot exams. Patient is to check feet daily for new wounds, blisters, redness to prevent infection and ulceration s to the feet. Patient will return to clinic in 3 months for diabetic foot workup. Dystrophia unguium 60608 009 L60.3 bilateral great toenails were debrided without incident History of diabetic foot ulcer 1204933629 2060088 Z86.31 Foot callus 626460307 L8 4 Left footOffloa ding with diabetic shoes and inserts newContinu e use a pumice stone keep the area from becoming prominentC heck feet daily for wounds infectionF ollow-up in 3 months [id number] Ko Mott DPM [facility] [place] [address] [place] [address] 08/30/2023 15:52:24 09/02/2023 12:34:50 Diabetes mellitus 24790925 E11.40 Z89.429 This note is dictated and transcribe d by [employer]. Transcript ion variances may occur. Despite proofreadi ng, typographi tramaine errors may occur. Occasional wrong-word or 'sound-a-l meme' substituti ons may have occurred due to the inherent limitation s of voice recording. Read the chart carefully and recognize, using context, where substituti ons have occurred. Diabetic p eripheral neuropathy 598680477 E11.42 Patient educated on neuropathy , diabetes, diabetic diet, and daily foot exams. Patient is to check feet daily for new wounds, blisters, redness to prevent infection and ulceration s to the feet. Patient will return to clinic in 3 months for diabetic foot workup. Dystrophia unguium 24884 009 L60.3 bilateral great toenails were debrided without incident Hammer toe 664969817 M20 .41 M20.42 continue offloading sleeves to prevent woundRecom mend wide soft toe box style shoeFollow -up in 3 months History of amputation of lesser toe 808237665 Z89.429 bilateral 4th toes Ulcer of toe 930740573 L 97.509 left 2nd plantar PIP [id number] Ko Mott DPM [facility] [address] [place] [address] 01/03/2024 15:55:24 01/05/2024 12:17:30 Ulcer of left foot due to type 2 diabetes mellitus 1093165259 7237456 E11.621 daily wound caremonito r for signs of infection if present seek medical attention immediatel yminimal weight-jimi ring- when walking use [employer] silver gel for dressingfo llow-up 1 week Dystrophia unguium 91721 009 L60.3 nails debrided without incident Hammer toe 327883126 M20 .41 M20.42 continue offloading sleeves to prevent woundRecom mend wide soft toe box style shoe [id number] Ko Mott DPM [facility] [place] [address] [place] [address] 01/24/2024 16:03:53 01/31/2024 09:46:02 Peripheral vascular disease 797093575 I73.9 ultrasound reviewed normalcont inue supportive diabetic shoe gearfollow -up 2 weeks wound care Ulcer of l eft foot due to type 2 diabetes mellitus 9920877323 3782846 E11.621 daily wound caremonito r for signs of infection if present seek medical attention immediatel yminimal weight-jimi ring- when walking use [employer] silver gel for dressing-- obtained over-the-c ounterfoll ow-up 1 week [id number] Ko Mott DPM [facility] [place] [address] [place] [address] 02/07/2024 15:25:31 02/08/2024 11:51:06 Ulcer of left foot due to type 2 diabetes mellitus 1345136126 0164594 E11.621 daily wound caredressi ngs orderedmon itor for signs of infection if present seek medical attention immediatel yminimal weight-jimi ring- when walking use Darco shoewound debrided todayfollo w-up 1 week [id number] Ko Mott DPM [facility] [place] [address] [place] [address] 02/21/2024 15:52:13 04/06/2024 15:49:27 Ulcer of left foot due to type 2 diabetes mellitus 3268574390 9258290 E11.621 daily wound caredressi ngs appliedmon itor for signs of infection if present seek medical attention immediatel ynot using Darco shoerecomm end modaleer bottom shoe if fails will need to apply total contact cast follow-up 2 weeks [id number] [facility] [address] [place] [address] 03/13/2024 15:18:04 04/06/2024 16:48:40 Ulcer of left foot due to type 2 diabetes mellitus 4354868151 5761386 E11.621 daily wound carerefer to wound care for total contact casting versus wound VAC therapydre ssings appliedmon itor for signs of infection if present seek medical attention immediatel ynot using Darco shoerecomm end rocker bottom shoe Is not wearingfol low-up 2 weeks [id number] [facility] [address] [place] [address] 03/29/2024 12:39:34 03/29/2024 15:31:51 Ulcer of left foot due to type 2 diabetes mellitus 9533726966 8524813 E11.621 daily wound careorder wound VAC therapydre ssings appliedmon itor for signs of infection if present seek medical attention immediatel ynot using Darco shoerecomm end rocker bottom shoefollow -up 2-3weeks [id number] Ko Mott DPM [facility] [address] [place] [address] 04/19/2024 12:13:15 04/19/2024 15:15:11 Ulcer of left foot due to type 2 diabetes mellitus 2868209830 9136674 E11.621 daily wound careDC wound VAC per patient requestdre ssings applied- silver collagenre commend offloading at all timesmonit or for signs of infection if present seek medical attention immediatel ynot using Darco shoepatien t to obtain medical clearance for 4th metatarsal osteotomy of the left foot for offloading follow-up 2-3weeks History of amputation of lesser toe [id number] Z89.429 bilateral 4th toes [id number] LL[facility] [place] [address] [place] [address] 05/01/2024 14:02:07 05/05/2024 13:37:21 Ulcer of left foot due to type 2 diabetes mellitus [id number] E11.621 daily wound caredressi ngs applied- Betadine wet-to-dry recommend offloading at all timesmonit or for signs of infection if present seek medical attention immediatel ynot using Darco shoepatien t to obtain medical clearance still pending- plan 4th metatarsal osteotomy of the left foot for offloading follow-up 1 week Ulcer of r ight foot due to type 2 diabetes mellitus [id number] E11.621 right 2nd toeBetadin e wet-to-dry dressings dailyOfflo ading at all times, continue postop shoe which she presents with todaypatie nt states she has enough dressings from previous woundsFoll ow-up 1 week Cellulitis of right foot [id number] L03.115 right footcultur es todayfollo w-up on week Diabetes mellitus 420898 09 E11.40 Z89.429 tight control of diabetes for optimal wound healing [id number] Ko Mott DPM [facility] [place] [address] [place] [address] 05/08/2024 16:46:04 05/12/2024 07:42:18 Ulcer of left foot due to type 2 diabetes mellitus [id number] 7593558 E11.621 daily wound caredressi ngs applied- Betadine wet-to-dry recommend offloading at all timesmonit or for signs of infection if present seek medical attention immediatel ynot using Darco shoepatien t to obtain medical clearance still pending- plan 4th metatarsal osteotomy of the left foot for offloading follow-up 1 week Ulcer of r ight foot due to type 2 diabetes mellitus [id number] 3516995 E11.621 right 2nd toeBetadin e wet-to-dry dressings dailyOfflo ading at all times, continue postop shoe which she presents with todaypatie nt states she has enough dressings from previous woundsFoll ow-up 1 week Cellulitis of right foot [id number] L03.115 right foot- 2nd toeculture s todayfollo w-up on week [id number] Ko Mott DPM [facility] [place] [address] [place] [address] 05/22/2024 16:10:08 05/30/2024 14:46:17 Ulcer of left foot due to type 2 diabetes mellitus [id number] 5387095 E11.621 daily wound caredressi ngs applied- Betadine wet-to-dry recommend offloading at all timesmonit or for signs of infection if present seek medical attention immediatel ynot using Darco shoepatien t to obtain medical clearance still pending- plan 4th metatarsal osteotomy of the left foot for offloading follow-up 1 week Ulcer of r ight foot due to type 2 diabetes mellitus [id number] E11.621 right 2nd toeBetadin e wet-to-dry dressings dailyOfflo ading at all times, continue postop shoe which she presents with todaypatie nt states she has enough dressings from previous woundsMRI reviewed consistent with osteomyeli tis septic arthritis right 2nd toeFollow- up 1 week Infective arthritis 3962 26058 M00.9 right 2nd proximal interphala ngeal jointpatie nt to report in the emergency room for admission treatment care today [id number] Ko Mott DPM [facility] [place] [address] [place] [address] 05/29/2024 15:37:13 05/30/2024 12:54:20 Postoperative care [id number] Z48.89 right foot 2nd toe amputation -- ulcer resolved right foot secondary to toe amputation left foot 4th metatarsal osteotomy with wound debridemen tkeep incisions clean and dryContinu e postop shoes with minimal walkingmon itor for signs of infection at present seek medical attention immediatel yFollow-up 1 week Ulcer of l eft foot due to type 2 diabetes mellitus [id number] 0601691 E11.621 healedfini sh Augmentin [id number] Ko Mott DPM [facility] [place] [address] [place] [address] 06/05/2024 15:53:42 06/07/2024 12:03:55 Postoperative care [id number] Z48.89 right foot 2nd toe amputation -- ulcer resolved right foot secondary to toe amputation left foot 4th metatarsal osteotomy with wound debridemen tkeep incisions clean and dryContinu e postop shoes with minimal walkingmon itor for signs of infection at present seek medical attention immediatel yFollow-up 1 week [id number] Ko Mott DPM [facility] [place] [address] [place] [address] 06/13/2024 14:42:59 06/27/2024 11:51:07 Postoperative care [id number] Z48.89 right foot 2nd toe amputation -- ulcer resolved right foot secondary to toe amputation left foot 4th metatarsal osteotomy with wound debridemen tkeep incisions clean and drysutures removedtra nsition to diabetic shoes and insolesmon itor for signs of infection at present seek medical attention immediatel yFollow-up 2 months [id number] Ko Mott DPM [facility] [place] [address] [place] [address] 08/14/2024 15:50:02 08/15/2024 12:29:08 Foot callus [id number] L84 right footOffloa ding with diabetic shoes and inserts newContinu e use a pumice stone keep the area from becoming prominentC heck feet daily for wounds infectionF ollow-up in 2 months Postoperative care [id number] Z48.89 right foot 2nd toe amputation -- ulcer resolved right foot secondary to toe amputation left foot 4th metatarsal osteotomy with wound debridemen t- wound resovledke ep incisions clean and drywell healed incisions without infectionc ont diabetic shoes and insolesmon itor for signs of infection at present seek medical attention immediatel yFollow-up 2 months Health Concerns Section Related Observation LastModified by Organization Detai ls LastModified Time None Recorded Concern Status LastModified by Organization Details LastModified Time None Recorded Advance Directives Directive None Recorded Payers Insurance Date Sequence Insurance Name Policy Number Policy Barboza Covered Member ID Barboza Member ID Guarantor Name 08/11/2024 1 [facility] - DOS ON OR AFTER 20 (MEDICAID REPLACEMENT - HMO) Sher Billings [id number] Sher Billings Notes Date Note Type Note [...] any other complaints. Ko Mott DPM [address], [place], [address], [employer] 05/25/2024 09:49:53 05/29/2024 text/html . Patient is [...] Mott DPM [address], [place], [address], [employer] 05/29/2024 16:34:28 06/05/2024 text/html . Patient is [...] vomiting. Ko Mott DPM [address], [place], [address], [employer] 06/05/2024 17:00:09 06/12/2024 text/html . Patient is a 64-year-old female she follows up for follow-up on amputation of the toe with osteotomy of the metatarsal for offloading. Patient is doing very well she has healed all wounds and incisions. Patient denies any signs of infection. Patient denies any other complaints. Ko Mott DPM [address], [place], [address], [employer] 06/26/2024 09:28:58 08/14/2024 text/html . Patient is [...] with a new wound. Ko Mott DPM [address], [place], [address], [employer] 08/15/2024 10:17:38 OBGyn Episode No OBEpisode recorded.
--- OUTSIDE RECORDS SUMMARY | 2024-10-12 10:54 | XMS_ITS | Clinical Summary ---
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
[2024-10-12 11:30] LABS: Add Urine Microscopic? YES; Appearance Urine Clear (Clear); Glucose Urine UA Negative (Negative); Leukocyte Esterase Ur 1+ (Negative); Nitrate Urine Negative (Negative); Specific Grav Ur 1.010 (1.010-1.020)
== END 2024-10-12 10:50 | disposition home or self-care (01) ==
PROVIDERS: PCP Physician Assistant; Visit Provider Nurse Practitioner Family
DX: E11.65 Type 2 diabetes mellitus with hyperglycemia (principal); E78.5 Hyperlipidemia, unspecified; I10 Essential (primary) hypertension; R53.83 Other fatigue
CPT/HCPCS: 81001

== ENCOUNTER 2024-11-02 13:46 | Outpatient (CLI) | payer OTHER, SELFPAY ==
--- NOTE | ~2024-11-02 | XR_ITS ---
EXAM/ PROCEDURE: XR hip LT min 2V - 11/02/2024 13:55 CDT HISTORY: 64 years old Female with LEFT HIP PAIN COMPARISON: None available TECHNIQUE: Two view(s) FINDINGS/ IMPRESSION: There are no fractures or dislocations.Joint space narrowing, subchondral sclerosis, subchondral cyst formation and osteophyte formation, compatible with mild osteoarthritis. Reviewed, dictated and finalized at location A.
--- OUTSIDE RECORDS SUMMARY | 2024-11-02 13:57 | XMS_ITS | Clinical Summary ---
Author Organization [facility] Address [address] [place] [address] Care Team Providers Care Dye Padder Operator Name Role Phone Jennifer Ng Primary Care Provider [phone] Allergies Active Allergy Reactions Criticality Noted Date [...] ZANE MARISSA DIGI Routine 04/21/2019 10:45 AM CAPONIZER Visit for screening mammogram from Last 3 Months or Most Recently Relevant to Health Maintenance Results * MG SCREENING W ZANE MARISSA DIGI (04/21/2019 10:45 AM CAPONIZER) Anatomical Region Laterality Modality Breast Bilateral Mammography 04/23/2019 1:54 PM CAPONIZER Impressions 04/23/2019 1:58 PM CAPONIZER IMPRESSION: No interval features to suggest malignancy. In the absence of clinical symptoms, return for annual screening due in one year. RECOMMENDATION: Routine Screening, BILATERAL in 1 year ASSESSMENT: ACR BI-RADS 2 - BENIGN FINDING(S) Interpreted By: Norah Encarnacion MD, 04/23/2019 1:54 PM Narrative 04/23/2019 1:58 PM CAPONIZER EXAMINATION: BILATERAL SCREENING MAMMOGRAPHY CLINICAL INDICATION: 57 [...] Relevant to Health Maintenance Insurance Care Teams Dye Padder Operator Relationship Specialty Start Date End Date Jennifer Ng PA [address] [place] [address] PCP - General PHYSICIAN TIRE REPAIRMAN 03/27/19
--- OUTSIDE RECORDS SUMMARY | 2024-11-02 13:57 | XMS_ITS | Encounter Summary ---
Author Organization [facility] Address [facility] [place] [address] Care Team Providers Care Track Service Person Name Role Phone Jennifer Ng Primary Care Provider [phone] Encounter Details Date Type Department Care Team (Late st Contact Info) Description 02/01/2014 Abstract [facility] CONVERSION [id number] [place] [address] , Generic ConversionMD Social History Tobacco Use [...] on filedocumented in this encounter Care Teams Track Service Person Relationship Specialty Start Date End Date Jennifer Ng PA [address] [place] [address] PCP - General PHYSICIAN CHEMISTRY PROFESSOR 03/27/19 documented as of this encounter
--- OUTSIDE RECORDS SUMMARY | 2024-11-02 13:58 | XMS_ITS | Clinical Summary ---
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
--- OUTSIDE RECORDS SUMMARY | 2024-11-02 13:58 | XMS_ITS | Encounter Summary ---
Author Organization [facility] Address [address] [place] [address] Phone Care Team Providers Care Operations Officer Trust Department Name Role Phone Jennifer Ng Primary Care Provider + Reason for Visit * Reason Comments Medication Refill Encounter Details Date Type Department Care Team (Late Contact Info) Description 07/06/2024 [facility] [address] [place] [address] Mery Martinez, INVESTOR RELATIONS DIRECTOR, TIRE SHOP MANAGER [address] [place] [address] Medication Refill Social History Tobacco Use Types Packs/Day Years Used Date Smoking Tobacco: Never Assessed Comments Unknown Sex and Gender Information Value Date Recorded Sex Assigned at Not on file 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
--- OUTSIDE RECORDS SUMMARY | 2024-11-02 13:58 | XMS_ITS | Data Portability ---
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 Coffee Break Attendant variances may occur. Despite proofreading, typographical errors may occur. Occasional wrong-word or 'cylgp-v-ufna' substitutions may have occurred due to the inherent limitations of voice recording. Read the chart carefully and recognize, using context, where substitutions have occurred. Not available 05/29/2024 16:32:19 06/05/2024 06/05/2024 This note is dictated and transcribed by [employer]. Coffee Break Attendant variances may occur. Despite proofreading, typographical errors may occur. Occasional wrong-word or 'cxuzv-x-xzbr' substitutions may have occurred due to the inherent limitations of voice recording. Read the chart carefully and recognize, using context, where substitutions have occurred. Not available 06/05/2024 16:57:14 06/12/2024 06/12/2024 This note is dictated and transcribed by [employer]. Coffee Break Attendant variances may occur. Despite proofreading, typographical errors may occur. Occasional wrong-word or 'qfvma-r-ulfz' substitutions may have occurred due to the inherent limitations of voice recording. Read the chart carefully and recognize, using context, where substitutions have occurred. Not available 06/26/2024 09:26:38 08/14/2024 08/14/2024 This note is dictated and transcribed by [employer]. Coffee Break Attendant variances may occur. Despite proofreading, typographical errors may occur. Occasional wrong-word or 'dfrcz-p-xdds' substitutions may have occurred due to the [...] clavulana te 125 mg tablet 2024 025 [facility] [address] [place], [address], 06/05/2024 16:58:35 Patient TargetsNo targets recorded. Patient InstructionsNo instructions recorded. Reason for Referral None Reported. Results Created Date Observation Date Name Description Value Unit Range Abnormal Flag Note LastModifiedBy Organization Detail LastModifiedTime 05/01/19 25 05/01/2024 CULTU RE WOUND /TISS UE+GR .STAI N wndtssc ===== ===== ===== ===== ===== ===== ===== ===== ===== ===== ===== ===== ===== ===== ===== ===== ===== ===== ===== ===== ===== ===== ===== ===== Speci men NO.: [id number] Exam Statu s: Final Proce dure: [...] I Genta micin <=4 [place] [address] [address] [place] [address] 7 Thymi dine- Depen den P Beta- [...] S Nitro furan toin <=32 Not Available [facility] (Lab) [address] [place], [address], 05/05/2024 07:09:32 05/11/19 25 XR, foot, 3 or more view No observ ation record ed. [email or web address] [facility] [place] [address], [place], [address], 05/11/2024 16:58:20 05/24/19 25 05/24/2024 XR, foot, 3 or more view No observ ation record ed. [email or web address] [facility] [address] [place], [address], 05/24/2024 12:48:38 05/30/19 25 05/18/2024 MRI, foot, w/o contr ast No observ ation record ed. [email or web address] [facility] (Imaging) [address] [place], [address], 05/30/2024 18:13:36 Result Notes None recorded. 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 Not Available [facility] 3 03:15:19 Neuropathi c arthropath y due to type 2 diabetes mellitus 368734632709 Active 2021 Not Available [facility] 3 03:15:19 Dystrophia unguium 00939323 Active 2022 Ko Mott DPM [address], [place], [address] , [employer] [facility] [employer] 3 14:55:01 Foot callus 501617490 Active 2022 Ko Mott DPM [address], [address], [place], [address] , [employer] 5 10:16:06 Diabetic peripheral neuropathy 318370103 Active 2022 Ko Mott DPM [address], [place], [address] , [employer] [facility] [employer] 3 14:55:26 History of amputation of lesser toe 823096440 Active 2022 Ko Mott DPM [address], [place], [address] , [employer] 3 14:58:21 Hammer toe 839418968 Active 2022 Ko Mott DPM [address], [address], [place], [address] , [employer] [facility] [employer] 3 16:50:04 History of diabetic foot ulcer 3632234486603 9100 Active 2023 Ko Mott DPM [address], [place], [address] , [employer] [facility] [employer] 4 15:31:50 Ulcer of left foot due to type 2 diabetes mellitus 3946413876555 9109 Active 2023 Ko Mott DPM [address], [place], [address] , [employer] [facility] [employer] 4 16:52:27 Peripheral vascular disease 564393076 Active 2023 Ko Mott DPM [address], [address], [place], [address] , [employer] 4 17:13:25 Infective arthritis 552411728 Active 2024 Ko Mott DPM [address], [address], [place], [address] , [employer] [facility] 5 09:49:19 Postoperat julienne care Active 2024 Ko Mott DPM [address], [place], [address] , [employer] 5 16:33:42 Problem Notes None recorded. Procedures Surgical History Date Name Laterality Status Provider Name and Address Organization Details Recorded Time 5 Nail Debridement active Ko Mott DPM [address], [place], [address], [employer] 10/23/2024 17:28:32 5 Callus Debridement, One completed Ko Mott DPM [address], [place], [address], [employer] [facility] 08/14/2024 16:38:26 5 Suture Removal completed Ko Mott DPM [address], [place], [address], [employer] 06/26/2024 09:28:07 5 Wound Care-Podiatry completed Ko Mott DPM [address], [place], [address], [employer] [facility] 04/20/2024 12:34:16 4 Wound Care-Podiatry completed Ko Mott DPM [address], [place], [address], [employer] [facility] 03/29/2024 14:02:46 4 Wound Care-Podiatry completed oK Mott DPM [address], [place], [address], [facility] [employer] [facility] [employer] [facility] 02/08/2024 13:47:22 4 Nail Debridement completed Ko Mott DPM [address], [place], [address], [facility] [employer] [facility] [employer] [facility] 09/01/2023 10:54:37 4 Nail Debridement completed Ko Mott DPM [address], [place], [address], [employer] [facility] [employer] [facility] 05/31/2023 16:10:17 4 Callus Debridement, One completed Ko Mott DPM [address], [place], [address], [facility] [employer] [facility] [employer] [facility] 05/31/2023 16:10:21 3 Nail Debridement completed Ko Mott DPM [address], [place], [address], [employer] [facility] [employer] [facility] 02/22/2023 16:49:40 3 Nail Debridement completed Ko Mott DPM [address], [place], [address], [employer] [facility] [employer] 11/02/2022 17:22:51 3 Nail Debridement completed Ko Mott DPM [address], [place], [address], [employer] [facility] 07/02/2022 14:54:33 Imaging Results None recorded. Procedure Notes None recorded. Medical Equipment None Reported. Allergies Allergen ID Allergen Name Allergen Category Reaction Reaction Severity Criticality Documentation Date Start Date Code Code System Note Provider Name and Address Organization Details Recorded Time 5884 acetamino phen / hydrocodo ne medicatio n Not available Not available Not available 06/10/2022 84087 2 RxNorm Not Available [facility] 3 03:26:33 5885 Substance with sulfonami de structure and antibacte rial mechanism of action (substanc e) medicatio n Not available Not available Not available 06/10/2022 56489 8003 SNOMED Not Available [facility] 3 03:26:33 71350 Augmentin medicatio n Not available Not available Not available 10/23/2024 73339 2 RxNorm Lilia [place], [place] [employer] [facility] 5 16:11:36 Medications Name Sig Start Date Stop Date [...] Not Available Not Available No t Available nitrofura ntoin monohydra te/macroc rystals 100 mg capsule TAKE 1 CAPSULE BY MOUTH EVERY 12 HOURS WITH FOOD active Not Available Not Available No t [...] mg/3 mL) subcutane ous pen injector INJECT 1MG SUBCUTAN EOUSLY ONCE A WEEK ON THE SAME DAY OF EACH WEEK active Not Available Not Available No t Available Silver Wound 55 PPM topical gel Apply 1 applicat ion every day by topical route as directed , for left foot wound. 2023 active Not Available Not Available Not Amber mims Paxlovid 300 mg (150 mg x 2)-100 [...] Updated DateTime 5 160.02 cm 36.8 kg/m2 47542.2 1 g 78 /min 14 /min 98 % 98 % 149/77 mm[Hg] Fela [employer] 5 15:52:07 Date Recorded Body height Body mass index (BMI) Body weight Heart rate Respiratory rate Oxygen saturation Oxygen saturation in Arterial blood by Pulse oximetry Systolic And Diastolic Provider Name and Address Organization Details Last Updated DateTime 5 160.02 cm 36.8 kg/m2 66392.2 1 g 81 /min 14 /min 98 % 98 % 142/87 mm[Hg] Fela [employer] 5 16:05:41 Date Recorded Heart rate Respiratory rate Oxygen saturation Oxygen saturation in Arterial blood by Pulse oximetry Systolic And Diastolic Provider Name and Address Organization Details Last Updated DateTime 5 79 /min 14 /min 98 % 98 % 123/67 mm[Hg] Fela [employer] 5 17:26:57 Date Recorded Body height Body mass index (BMI) Body weight Heart rate Respiratory rate Oxygen saturation Oxygen saturation in Arterial blood by Pulse oximetry Systolic And Diastolic Provider Name and Address Organization Details Last Updated DateTime 5 160.02 cm 36.8 kg/m2 33797.2 1 g 72 /min 14 /min 98 % 98 % 139/62 mm[Hg] Fela [facility] [employer]4 15:57:44 Date Recorded Body height Body mass index (BMI) Body weight Heart rate Respiratory rate Oxygen saturation Oxygen saturation in Arterial blood by Pulse oximetry Systolic And Diastolic Provider Name and Address Organization Details Last Updated DateTime 5 160.02 cm 36.8 kg/m2 00991.2 1 g 73 /min 14 /min 98 % 98 % 132/79 mm[Hg] Fela WIGG[facility] 16:13:51 Social History Question Answer Notes LastModified by Lore Details LastModified Time Tobacco Smoking Status Never Smoker Not Available [facility] 06/10/2022 03:05:25 What Type Of Diet Are You Following? DIABETIC [email or web address] Information not available 03/29/2024 Have You Recently Traveled Abroad? No [id number] Information not available 06/10/2022 Do You Have Any Dietary Restrictions? Yes [email or web address] Information not available 03/29/2024 Sex: Unknown Functional Status Question Answer Note LastModified by Lore Details LastModified Time What is your exercise level? Occasional [email or web address] Information not available 03/29/2024 Mental Status None recorded. Family History Nothing Reported. Medical History Condition Response DIABETES, TYPE Y USE OF BLOOD THINNERS Y HYPERTENSION Y STROKE/TIA Y Gynecological HistoryNo gynecological history recorded. Obstetrics History GPAL:G 0 P 0 0 0 0 Past Encounters Encounter ID Performer Location Encounter Start Date Encounter Closed Date Diagnosis/Indication Diagnosis SNOMED-CT Code Diagnosis ICD10 Code Diagnosis Note [id number] [facility] [place] [address] [place] [address] 06/27/2020 00:00:00 07/01/2020 09:33:21 [id number] [facility] [place] [address] [place] [address] 07/25/2020 00:00:00 07/28/2020 22:10:02 [id number] [facility] [place] [address] [place] [address] 08/08/2020 00:00:00 08/08/2020 18:32:13 [id number] [facility] [place] [address] [place] [address] 08/15/2020 00:00:00 08/16/2020 09:40:17 [id number] [facility] [place] [address] [place] [address] 10/02/2020 00:00:00 10/03/2020 08:52:36 [id number] [facility] [place] [address] [place] [address] 10/17/2020 00:00:00 10/22/2020 10:57:46 [id number] [facility] [place] [address] [place] [address] 11/07/2020 00:00:00 11/07/2020 14:25:48 [id number] [facility] [place] [address] [place] [address] 11/27/2020 00:00:00 11/28/2020 14:06:03 [id number] [facility] [place] [address] [place] [address] 12/09/2020 00:00:00 12/09/2020 20:08:23 [id number] [facility] [place] [address] [place] [address] 12/23/2020 00:00:00 12/23/2020 15:55:22 [id number] [facility] [place] [address] [place] [address] 12/30/2020 00:00:00 12/31/2020 10:45:19 [id number] [facility] [place] [address] [place] [address] 02/03/2021 00:00:00 02/05/2021 16:32:36 [id number] [facility] [place] [address] [place] [address] 02/20/2021 00:00:00 02/21/2021 09:34:29 [id number] [facility] [place] [address] [place] [address] 03/31/2021 00:00:00 04/01/2021 05:08:44 [id number] [facility] [place] [address] [place] [address] 04/14/2021 00:00:00 04/15/2021 11:39:54 [id number] [facility] [place] [address] [place] [address] 04/28/2021 00:00:00 04/28/2021 15:18:10 [id number] [facility] [place] [address] [place] [address] 05/19/2021 00:00:00 05/20/2021 10:11:39 [id number] [facility] [address] [place] [address] 05/27/2021 00:00:00 05/27/2021 19:37:23 [id number] [facility] [address] [place] [address] 06/03/2021 00:00:00 06/05/2021 11:30:37 [id number] [facility] [address] [place] [address] 06/10/2021 00:00:00 06/10/2021 15:44:11 [id number] [facility] [place] [address] [place] [address] 07/24/2021 00:00:00 07/26/2021 12:38:08 [id number] [facility] [place] [address] [place] [address] 08/25/2021 00:00:00 08/26/2021 13:56:45 [id number] [facility] [place] [address] [place] [address] 09/15/2021 00:00:00 09/16/2021 10:45:07 [id number] [facility] [place] [address] [place] [address] 10/16/2021 00:00:00 10/20/2021 14:23:44 [id number] [facility] [place] [address] [place] [address] 11/27/2021 00:00:00 11/30/2021 14:56:17 [id number] [facility] [place] [address] [place] [address] 12/18/2021 00:00:00 12/18/2021 14:57:46 [id number] [facility] [place] [address] [place] [address] 01/08/2022 00:00:00 01/08/2022 16:16:46 [id number] [facility] [place] [address] [facility] [address] [place] [address] 02/05/2022 00:00:00 02/06/2022 10:33:40 [id number] [facility] [address] [place] [address] 02/10/2022 00:00:00 02/10/2022 15:05:23 [id number] [facility] [address] [place] [address] 02/17/2022 00:00:00 02/19/2022 10:14:22 [id number] [facility] [place] [address] [facility] [address] [place] [address] 03/26/2022 00:00:00 03/26/2022 15:38:32 [id number] Ko [facility]ott DPM [facility] [place] [address] [facility] [address] [place] [address] 07/02/2022 14:35:44 07/03/2022 10:51:52 Dystrophia unguium 01819213 L60.3 Nails 1 through 10 were debrided with sharp mechanical debridemen t without incident. Nails were debrided and greater than 50% length and thickness where needed. Foot callus 560265676 L8 4 Offloading with diabetic shoes and inserts newContinu e use a pumice stone keep the area from becoming prominentC heck feet daily for wounds infectionF ollow-up in 3 months History of amputation of lesser toe 259132020 Z89.429 bilateral 4th toes Diabetic p eripheral neuropathy 313519914 E11.42 Patient educated on neuropathy , diabetes, diabetic diet, and daily foot exams. Patient is to check feet daily for new wounds, blisters, redness to prevent infection and ulceration s to the feet. Patient will return to clinic in 3 months for diabetic foot workup. [id number] Ko Mott DPM [facility] [place] [address] [facility] [place] [address] 11/02/2022 16:38:18 11/02/2022 17:30:12 Open wound of toe of right foot 4960230746 1090499 S91.101A right 2nd toeBetadin e applied to the woundWound care reviewed with the patient dailyfollo w-up 1 week Dystrophia unguium 12026 009 L60.3 Nails 1 through 10 were debrided with sharp mechanical debridemen t without incident. Nails were debrided and greater than 50% length and thickness where needed. [id number] Ko Mott DPM [facility] [place] [address] [facility] [address] [place] [address] 11/09/2022 16:36:48 11/09/2022 17:47:05 Foot ulcer due to type 2 diabetes mellitus 8295767162 100 E11.621 HealedCont inue diabetic shoes and insertsche ck feet daily for new wounds and signs of infectionf ollow-up in [facility] 2 months for diabetic foot care [id number] Ko Mott DPM [facility] [place] [address] [facility] [address] [place] [address] 02/22/2023 15:42:37 02/22/2023 17:15:58 Diabetic peripheral neuropathy 476874149 E11.42 Patient educated on neuropathy , diabetes, diabetic diet, and daily foot exams. Patient is to check feet daily for new wounds, blisters, redness to prevent infection and ulceration s to the feet. Patient will return to clinic in 3 months for diabetic foot workup. Dystrophia unguium 25375 009 L60.3 bilateral great toenails were debrided without incident Hammer toe 599896555 M20 .41 M20.42 continue offloading sleeves to prevent woundRecom mend wide soft toe box style shoeFollow -up in 3 months [id number] Ko Mott DPM [facility] [place] [address] [facility] [address] [place] [address] 05/31/2023 15:25:47 05/31/2023 16:16:01 Diabetic peripheral neuropathy 604986219 E11.42 Patient educated on neuropathy , diabetes, diabetic diet, and daily foot exams. Patient is to check feet daily for new wounds, blisters, redness to prevent infection and ulceration s to the feet. Patient will return to clinic in 3 months for diabetic foot workup. Dystrophia unguium 09552 009 L60.3 bilateral great toenails were debrided without incident History of diabetic foot ulcer 5606356031 3177597 Z86.31 Foot callus 178444728 L8 4 Left footOffloa ding with diabetic shoes and inserts newContinu e use a pumice stone keep the area from becoming prominentC heck feet daily for wounds infectionF ollow-up in 3 months [id number] Ko Mott DPM [facility] [place] [address] [place] [address] 08/30/2023 15:52:24 09/02/2023 12:34:50 Diabetes mellitus 12831194 E11.40 Z89.429 This note is dictated and transcribe d by [employer]. Transcript ion variances may occur. Despite proofreadi ng, typographi tramaine errors may occur. Occasional wrong-word or 'sound-a-l meme' substituti ons may have occurred due to the inherent limitation s of voice recording. Read the chart carefully and recognize, using context, where substituti ons have occurred. Diabetic p eripheral neuropathy 006710232 E11.42 Patient educated on neuropathy , diabetes, diabetic diet, and daily foot exams. Patient is to check feet daily for new wounds, blisters, redness to prevent infection and ulceration s to the feet. Patient will return to clinic in 3 months for diabetic foot workup. Dystrophia unguium 30445 009 L60.3 bilateral great toenails were debrided without incident Hammer toe 150735319 M20 .41 M20.42 continue offloading sleeves to prevent woundRecom mend wide soft toe box style shoeFollow -up in 3 months History of amputation of lesser toe 765956571 Z89.429 bilateral 4th toes Ulcer of toe 849646126 L 97.509 left 2nd plantar PIP [id number] Ko Mott DPM [facility] [place] [address] [place] [address] 01/03/2024 15:55:24 01/05/2024 12:17:30 Ulcer of left foot due to type 2 diabetes mellitus 1615042902 5606053 E11.621 daily wound caremonito r for signs of infection if present seek medical attention immediatel yminimal weight-jimi ring- when walking use [employer] silver gel for dressingfo llow-up 1 week Dystrophia unguium 12748 009 L60.3 nails debrided without incident Hammer toe 438008401 M20 .41 M20.42 continue offloading sleeves to prevent woundRecom mend wide soft toe box style shoe [id number] Ko Mott DPM [facility] [place] [address] [place] [address] 01/24/2024 16:03:53 01/31/2024 09:46:02 Peripheral vascular disease 788146729 I73.9 ultrasound reviewed normalcont inue supportive diabetic shoe gearfollow -up 2 weeks wound care Ulcer of l eft foot due to type 2 diabetes mellitus 4323129657 7595165 E11.621 daily wound caremonito r for signs of infection if present seek medical attention immediatel yminimal weight-jimi ring- when walking use [employer] silver gel for dressing-- obtained over-the-c ounterfoll ow-up 1 week [id number] Ko Mott DPM [facility] [place] [address] [place] [address] 02/07/2024 15:25:31 02/08/2024 11:51:06 Ulcer of left foot due to type 2 diabetes mellitus 7529130875 6407870 E11.621 daily wound caredressi ngs orderedmon itor for signs of infection if present seek medical attention immediatel yminimal weight-jimi ring- when walking use [employer]co shoewound debrided todayfollo w-up 1 week [id number] Ko Mott DPM [facility] [place] [address] [place] [address] 02/21/2024 15:52:13 04/06/2024 15:49:27 Ulcer of left foot due to type 2 diabetes mellitus 1576874038 4943706 E11.621 daily wound caredressi ngs appliedmon itor for signs of infection if present seek medical attention immediatel ynot using Darco shoerecomm end rocker bottom shoe if fails will need to apply total contact cast follow-up 2 weeks [id number] Ko Mott DPM [facility] [place] [address] [place] [address] 03/13/2024 15:18:04 04/06/2024 16:48:40 Ulcer of left foot due to type 2 diabetes mellitus 5058796273 0447829 E11.621 daily wound carerefer to wound care for total contact casting versus wound VAC therapydre ssings appliedmon itor for signs of infection if present seek medical attention immediatel ynot using Darco shoerecomm end rocker bottom shoe Is not wearingfol low-up 2 weeks [id number] [facility] [address] [place] [address] 03/29/2024 12:39:34 03/29/2024 15:31:51 Ulcer of left foot due to type 2 diabetes mellitus 1308511897 9951830 E11.621 daily wound careorder wound VAC therapydre ssings appliedmon itor for signs of infection if present seek medical attention immediatel ynot using Darco shoerecomm end rocker bottom shoefollow -up 2-3weeks [id number] [facility] [address] [place] [place] [address] 04/19/2024 12:13:15 04/19/2024 15:15:11 Ulcer of left foot due to type 2 diabetes mellitus [id number] E11.621 daily wound careDC wound VAC per patient requestdre ssings applied- silver collagenre commend offloading at all timesmonit or for signs of infection if present seek medical attention immediatel ynot using Darco shoepatien t to obtain medical clearance for 4th metatarsal osteotomy of the left foot for offloading follow-up 2-3weeks History of amputation of lesser toe [id number] Z89.429 bilateral 4th toes [id number] Ko Mott DPM [facility] [place] [address] [place] [address] 05/01/2024 14:02:07 05/05/2024 13:37:21 Ulcer of left foot due to type 2 diabetes mellitus [id number] E11.621 daily wound caredressi ngs applied- Betadine wet-to-dry recommend offloading at all timesmonit or for signs of infection if present seek medical attention immediatel ynot using Darco shoepatien t to obtain medical clearance still pending- plan 4th metatarsal osteotomy of the left foot for offloading follow-up 1 week Ulcer of r ight foot due to type 2 diabetes mellitus [id number] E11.621 right 2nd toeBetadin e wet-to-dry dressings dailyOfflo ading at all times, continue postop shoe which she presents with todaypatie nt states she has enough dressings from previous woundsFoll ow-up 1 week Cellulitis of right foot [id number] L03.115 right footcultur es todayfollo w-up on week Diabetes mellitus [id number] E11.40 Z89.429 tight control of diabetes for optimal wound healing [id number] Ko Mott DPM [facility] [place] [address] [place] [address] 05/08/2024 16:46:04 05/12/2024 07:42:18 Ulcer of left foot due to type 2 diabetes mellitus [id number] E11.621 daily wound caredressi ngs applied- Betadine wet-to-dry recommend offloading at all timesmonit or for signs of infection if present seek medical attention immediatel ynot using Darco shoepatien t to obtain medical clearance still pending- plan 4th metatarsal osteotomy of the left foot for offloading follow-up 1 week Ulcer of r ight foot due to type 2 diabetes mellitus [id number] E11.621 right 2nd toeBetadin e wet-to-dry dressings dailyOfflo ading at all times, continue postop shoe which she presents with todaypatie nt states she has enough dressings from previous woundsFoll ow-up 1 week Cellulitis of right foot [id number] L03.115 right foot- 2nd toeculture s todayfollo w-up on week [id number] Ko Mott DPM [facility] [place] [address] [place] [address] 05/22/2024 16:10:08 05/30/2024 14:46:17 Ulcer of left foot due to type 2 diabetes mellitus [id number] E11.621 daily wound caredressi ngs applied- Betadine wet-to-dry recommend offloading at all timesmonit or for signs of infection if present seek medical attention immediatel ynot using Darco shoepatien t to obtain medical clearance still pending- plan 4th metatarsal osteotomy of the left foot for offloading follow-up 1 week Ulcer of r ight foot due to type 2 diabetes mellitus [id number] E11.621 right 2nd toeBetadin e wet-to-dry dressings dailyOfflo ading at all times, continue postop shoe which she presents with todaypatie nt states she has enough dressings from previous woundsMRI reviewed consistent with osteomyeli tis septic arthritis right 2nd toeFollow- up 1 week Infective arthritis [id number] M00.9 right 2nd proximal interphala ngeal jointpatie nt to report in the emergency room for admission treatment care today [id number] Ko Mott DPM [facility] [place] [address] [place] [address] 05/29/2024 15:37:13 05/30/2024 12:54:20 Postoperative care [id number] Z48.89 right foot 2nd toe amputation -- ulcer resolved right foot secondary to toe amputation left foot 4th metatarsal osteotomy with wound debridemen tkeep incisions clean and dryContinu e postop shoes with minimal walkingmon itor for signs of infection at present seek medical attention immediatel yFollow-up 1 week Ulcer of l eft foot due to type 2 diabetes mellitus [id number] E11.621 healedfini sh Augmentin [id number] Ko Mott DPM [facility] [place] [address] [place] [address] 06/05/2024 15:53:42 06/07/2024 12:03:55 Postoperative care [id number] Z48.89 right foot 2nd toe amputation -- ulcer resolved right foot secondary to toe amputation left foot 4th metatarsal osteotomy with wound debridemen tkeep incisions clean and dryContinu e postop shoes with minimal walkingmon itor for signs of infection at present seek medical attention immediatel yFollow-up 1 week [id number] Ko Mott DPM [facility] [place] [address] [place] [address] 06/13/2024 14:42:59 06/27/2024 11:51:07 Postoperative care [id number] Z48.89 right foot 2nd toe amputation -- ulcer resolved right foot secondary to toe amputation left foot 4th metatarsal osteotomy with wound debridemen tkeep incisions clean and drysutures removedtra nsition to diabetic shoes and insolesmon itor for signs of infection at present seek medical attention immediatel yFollow-up 2 months [id number] Ko Mott DPM [facility] [place] [address] [place] [address] 08/14/2024 15:50:02 08/15/2024 12:29:08 Foot callus [id number] L84 right footOffloa ding with diabetic shoes and inserts newContinu e use a pumice stone keep the area from becoming prominentC heck feet daily for wounds infectionF ollow-up in 2 months Postoperative care [id number] Z48.89 right foot 2nd toe amputation [...] Member ID Barboza Member ID Guarantor Name 10/20/2024 1 [facility] - DOS ON OR AFTER 20 (MEDICAID REPLACEMENT - HMO) Sher Billings [id number] Sher Billings Notes Date Note Type Note Provider Name and Address Organization Details Recorded Time 05/29/2024 text/html . Patient is a 63-year-old [...] denies any other complaints. Ko Mott DPM [address] [employer], [place], [address], [employer] 05/29/2024 16:34:28 06/05/2024 text/html . Patient is [...] chills, nausea or vomiting. Ko Mott DPM [address], [place], [address], [employer] 06/05/2024 17:00:09 06/12/2024 text/html . Patient is a 64-year-old female she follows up for follow-up on amputation of the toe with osteotomy of the metatarsal for offloading. Patient is doing very well she has healed all wounds and incisions. Patient denies any signs of infection. Patient denies any other complaints. Ko Mott DPM [address], [place], [address], [employer] 06/26/2024 09:28:58 08/14/2024 text/html . Patient is [...] could result with a new wound. Ko Mott, [facility] [address] [facility], [facility] [address], [place], [address], [facility] 08/15/2024 10:17:38 OBGyn Episode No OBEpisode recorded.
== END 2024-11-02 13:47 | disposition home or self-care (01) ==
LOC: CHSIMG 13:48
PROVIDERS: PCP Nurse Practitioner Family; Visit Provider Nurse Practitioner Family
DX: M25.552 Pain in left hip (principal)
CPT/HCPCS: 73502

== ENCOUNTER 2025-03-03 09:24 | Outpatient (CLI) | payer OTHER, SELFPAY ==
[2025-03-03 10:24] LABS: Hemoglobin A1C 6.5 % (<5.7)
== END 2025-03-03 09:25 | disposition home or self-care (01) ==
LOC: CHSLAB 09:26
PROVIDERS: PCP Nurse Practitioner Family; Visit Provider Nurse Practitioner Family
DX: E11.65 Type 2 diabetes mellitus with hyperglycemia (principal)
CPT/HCPCS: 36415; 83036

== ENCOUNTER 2025-03-26 13:26 | Outpatient (CLI) | payer OTHER, SELFPAY ==
--- NOTE | ~2025-03-26 | MM_ITS ---
EXAMINATION: MM screening [facility] BI w [facility] HISTORY: Screening TECHNIQUE: Craniocaudal and mediolateral oblique 3-D tomosynthesis images were obtained and synthetic 2-D images were generated. CAD analysis was submitted and interpreted. COMPARISON: Comparison to multiple prior studies sequentially, with oldest reviewed study dated 01/26/2023. BREAST PARENCHYMAL COMPOSITION: Not Dense: There are scattered areas of fibroglandular density. FINDINGS: There is no evidence of suspicious mass, calcification, or architectural distortion to suggest malignancy in either breast. Scattered benign-appearing calcifications are present. IMPRESSION: 1. No mammographic evidence of malignancy. 2. Recommend routine screening mammography in one year. BI-RADS Category 2: Benign finding(s). Reviewed, dictated and finalized at location A. [employer]
== END 2025-03-26 13:27 | disposition home or self-care (01) ==
LOC: CHSIMG 13:28
PROVIDERS: PCP Nurse Practitioner Family; Visit Provider Physician Assistant
DX: Z12.31 Encounter for screening mammogram for malignant neoplasm of breast (principal)
CPT/HCPCS: 77063; 77067